=== PATIENT | male | born 1980 | race Caucasian/White ===

== ENCOUNTER 2016-03-20 09:20 | Emergency (ER) | payer OTHER ==
[~2016-03-20] VITALS: Ht 180.3 cm; Wt 77.0 kg
[~2016-03-20 09:20] MED LIST: CETITAB27 PO; OXYC20TA32 PO
[2016-03-20 09:25] VITALS: TEMP 36.6; Ht 180.3 cm; Wt 77.0 kg
[2016-03-20] MEDS ORDERED: KETOROLAC TROMETHAMINE 60 MG/2 ML VIAL IM STA (09:49)
[2016-03-20] MEDS ORDERED: HYDROmorphone HCL 4 MG/ML SYR IM STA (09:49)
[2016-03-20] MEDS ORDERED: ONDANSETRON 4MG OD TAB PO STA (09:49)
--- NOTE | 2016-03-20 09:54 | EMERGENCY ROOM VISIT NOTE ---
ED Visit Note First contact with patient: 09:30 CHIEF COMPLAINT: Migraine headache since early this morning HISTORY OF PRESENT ILLNESS: Patient is a 36-year-old white male with past medical history significant for migraine headaches, chronic neck, back pain and eye pain, who is known to the emergency department for frequent visits and on a treatment plan restricting him to 2 narcotic injections per month. He presents to the ED complaining of a migraine that started early this morning. There has been associated photophobia, phonophobia, nausea without vomiting. The patient denies fever or chills recently, and there is no weakness or numbness of the extremities. There is no difficulty with balance, coordination, speech or vision. No trauma to the head and no neck pain. The pain is severe, constant, and it is slowly increasing in severity. The patient rates the pain as severe and 9/10. The patient took Opana this morning without relief of his headache. His pain management provider in [place] has recently changed his medications. He has been on oxycodone regularly for many years. He states that they are weaning down on this, and he recently started Opana BID, with the intention to completely discontinue the oxycodone and switched to something different for breakthrough pain. He has been appointment in the beginning of April for follow-up. He [place] [facility] [place] He believes he has an appointment in the end of April. REVIEW OF SYSTEMS: Review of systems as per HPI. All other systems reviewed were negative. 10 systems reviewed. PMH:Electronic medical records are reviewed and summarized as above/below. See Problem List. SOCIAL HISTORY: The patient does not smoke or drink alcohol. He lives with his and daughter. PHYSICAL EXAM: Vital Signs: Reviewed Nurse's notes, vital signs stable. Vital Signs: Reviewed Nurse's notes. General Appearance: Patient is uncomfortable appearing 36-year-old white male who is awake and alert and laying on the gurney in a darkened room. His family is at the bedside. Eyes: Pupils equal round reactive to light extraocular muscles are intact, no proptosis, mild photophobia ENT: Oropharynx is clear, mucous membranes are moist, tympanic membranes are clear bilaterally, no sinus or dental tenderness Neck: Supple, no cervical lymphadenopathy, no meningismus Heart: Regular rate and rhythm, S1 and S2 Lungs: Clear to auscultation bilaterally, no wheezes Rales or rhonchi, no increased work of breathing Abdomen: Soft nontender nondistended. Normal active bowel sounds. No rebound. No guarding. Back: No midline tenderness to palpation. : No CVA tenderness to palpation. Skin: Warm, no diaphoresis, no rashes. Extremities: No cyanosis, clubbing, or edema Neurologic: Patient is awake alert, and oriented x 3. Cranial nerves 2-12 are grossly intact. Motor 5 out of 5 strength bilateral upper extremities and lower extremities. No gross sensory deficits. Reflexes are 2+ throughout. EMERGENCY DEPARTMENT COURSE: Patient was seen and evaluated as above. The patient is well known to this emergency department. He presents today with a migraine that is similar to previous. He is on a 2 shot per month treatment plan. This is his first visit for the month. The patient was given Dilaudid 3 mg IM, Toradol 60 mg IM Zofran 4 mg ODT with relief of their pain. These are typical doses for the patient. He requested to be discharged immediately. The differential diagnosis includes acute intracranial bleed, meningitis, encephalitis, mass or mass effect, sinusitis, infection, tumor, headache, temporal arteritis and carbon monoxide exposure, and migraine. The patient was discharged home in stable condition with his driving. He was advised to follow closely with his neurologist and pain management physician for further care and management of his symptoms. Problem List Medical Problems: (1) Abdominal pain Status: Resolved (2) Chronic sinusitis Status: Resolved (3) Headache Status: Resolved (4) Headache Status: Resolved (5) Headache Status: Resolved (6) IDIOPATHIC SCOLIOSIS Status: Chronic (7) Kidney stone Status: Resolved (8) Migraine Status: Resolved (9) Migraine Status: Resolved (10) Migraine Status: Resolved (11) Migraine Status: Resolved (12) Migraine Status: Resolved (13) Migraine Status: Resolved (14) Migraine headache Status: Resolved (15) Migraine headache Status: Resolved (16) Migraine headache Status: Resolved (17) Migraine headache Status: Resolved (18) MIGRAINE UNSPECIFIED W/O INTRACT MGRN W/O STATUS MIGRAINOSUS Status: Chronic (19) Shortness of breath Status: Resolved (20) TOBACCO USE DISORDER Status: Chronic Current/Historical Medications Scheduled Multiple Vitamins W/ Minerals (Centrum), 1 TAB PO DAILY Oxymorphone Hcl (Opana Er (Crush Resistant), 1 TAB PO BID Scheduled PRN Cetirizine/Pseudoephedrine (Zyrtec-D Er 5MG/120MG), 1 TAB PO Q12H PRN for Allergies Oxycodone Hcl (Oxycodone Hcl), 1 TAB PO QID PRN for Pain Allergies Coded Allergies: Meperidine (Verified Adverse Reaction, Unknown, ANXIETY, 03/20/16) Metoclopramide (Verified Adverse Reaction, Unknown, ANXIETY, 03/20/16) Vital Signs Date Time Temp Pulse Resp B/P Pulse Ox O2 Delivery O2 Flow Rate FiO2 03/20/16 10:25 59 15 102/54 98 03/20/16 10:21 71 16 111/69 99 Room Air 03/20/16 09:25 36.6 51 18 129/74 98 Room Air Medications Administered Medications (Trade) Dose Ordered Sig/Babs Route Start Time Stop Time Status Last Admin Dose Admin Hydromorphone HCl (Dilaudid Inj) 3 mg NOW STAT IM 03/20/16 09:49 03/20/16 09:50 DC 03/20/16 10:11 3 MG Ketorolac Tromethamine (Toradol Inj) 60 mg NOW STAT IM 03/20/16 09:49 03/20/16 09:50 DC 03/20/16 10:10 60 MG Ondansetron HCl (Zofran Odt) 4 mg NOW STAT PO 03/20/16 09:49 03/20/16 09:50 DC 03/20/16 10:10 4 MG Departure Information Impression Primary Impression: Headache Referrals Santa Reese M.D. (PCP) Patient Instructions My [facility] Additional Instructions DO NOT drive, drink alcohol, operate machinery, or perform dangerous activities today. You were given medications in the ER that can affect your ability to safely function or operate a vehicle. Rest today in a quiet, peaceful, dark environment and get a full 8-10 hrs of sleep tonight. Avoid loud noises, smoke/smoking, alcohol, bright lights, stress, or physical exertion today to minimize the chance the headache may return. Continue current medications. Ibuprofen(Motrin, Advil) may be used for fever or pain. Use 600mg every six hours as needed. Take with food. Avoid using more than 2400mg in a 24 hour period. Do not use 2400mg per day for more than three consecutive days without physician direction. Prolonged inappropriate use can lead to stomach upset or ulcers. (AND/OR) Acetaminophen(Tylenol) may be used for fever or pain. Use 1000mg every six hours as needed. Avoid using more than 3000mg in a 24 hour period. Return to the ER for passing out, worsening headache, vision problems, neck stiffness/pain, fevers, vomiting, worsening of your condition, or as needed. Follow up with your primary physician in 2-3 days for a recheck of your current condition. Follow-up with your pain management physician and neurologist as scheduled.
[2016-03-20] MEDS ORDERED: OXYM1TAB24 PO (10:01)
[2016-03-20] MEDS ORDERED: OXY/15 PO (10:01)
--- NOTE | 2016-03-20 10:09 | EMERGENCY ROOM VISIT NOTE ---
ED Visit Note First contact with patient: 09:30 I have seen and examined this patient with Gin Lares and generally agree with the treatment plan as discussed. Problem List Medical Problems: (1) Abdominal pain Status: Resolved (2) Chronic sinusitis Status: Resolved (3) Headache Status: Resolved (4) Headache Status: Resolved (5) Headache Status: Resolved (6) IDIOPATHIC SCOLIOSIS Status: Chronic (7) Kidney stone Status: Resolved (8) Migraine Status: Resolved (9) Migraine Status: Resolved (10) Migraine Status: Resolved (11) Migraine Status: Resolved (12) Migraine Status: Resolved (13) Migraine Status: Resolved (14) Migraine headache Status: Resolved (15) Migraine headache Status: Resolved (16) Migraine headache Status: Resolved (17) Migraine headache Status: Resolved (18) MIGRAINE UNSPECIFIED W/O INTRACT MGRN W/O STATUS MIGRAINOSUS Status: Chronic (19) Shortness of breath Status: Resolved (20) TOBACCO USE DISORDER Status: Chronic Current/Historical Medications Scheduled Multiple Vitamins W/ Minerals (Centrum), 1 TAB PO DAILY Oxymorphone Hcl (Opana Er (Crush Resistant), 1 TAB PO BID Scheduled PRN Cetirizine/Pseudoephedrine (Zyrtec-D Er 5MG/120MG), 1 TAB PO Q12H PRN for Allergies Oxycodone Hcl (Oxycodone Hcl), 1 TAB PO QID PRN for Pain Allergies Coded Allergies: Meperidine (Verified Adverse Reaction, Unknown, ANXIETY, 03/20/16) Metoclopramide (Verified Adverse Reaction, Unknown, ANXIETY, 03/20/16) Vital Signs Date Time Temp Pulse Resp B/P Pulse Ox O2 Delivery O2 Flow Rate FiO2 03/20/16 09:25 36.6 51 18 129/74 98 Room Air Departure Information Impression Primary Impression: Headache Referrals Santa Reese M.D. (PCP) Patient Instructions My [facility] Additional Instructions DO NOT drive, drink alcohol, operate machinery, or perform dangerous activities today. You were given medications in the ER that can affect your ability to safely function or operate a vehicle. Rest today in a quiet, peaceful, dark environment and get a full 8-10 hrs of sleep tonight. Avoid loud noises, smoke/smoking, alcohol, bright lights, stress, or physical exertion today to minimize the chance the headache may return. Continue current medications. Ibuprofen(Motrin, Advil) may be used for fever or pain. Use 600mg every six hours as needed. Take with food. Avoid using more than 2400mg in a 24 hour period. Do not use 2400mg per day for more than three consecutive days without physician direction. Prolonged inappropriate use can lead to stomach upset or ulcers. (AND/OR) Acetaminophen(Tylenol) may be used for fever or pain. Use 1000mg every six hours as needed. Avoid using more than 3000mg in a 24 hour period. Return to the ER for passing out, worsening headache, vision problems, neck stiffness/pain, fevers, vomiting, worsening of your condition, or as needed. Follow up with your primary physician in 2-3 days for a recheck of your current condition. Follow-up with your pain management physician and neurologist as scheduled.
[2016-03-20 10:25] VITALS: BP 102/54; PULSE 59; O2SAT 98
== END 2016-03-20 10:26 | disposition home or self-care (01) ==
LOC: C.EDB 09:22
DX: R51 Headache (principal); M41.20 Other idiopathic scoliosis, site unspecified; Z72.0 Tobacco use

== ENCOUNTER 2016-03-21 08:59 | Emergency (ER) | payer OTHER ==
[~2016-03-21] VITALS: Ht 180.3 cm; Wt 82.1 kg
[~2016-03-21 08:59] MED LIST changes: +OXY/15 PO; -OXYC20TA32 PO; +OXYM1TAB24 PO
[2016-03-21 09:11] VITALS: TEMP 36.9; Ht 180.3 cm; Wt 82.1 kg
[2016-03-21] MEDS ORDERED: HYDROmorphone INJ 1 MG/ML SYR IM STA (09:18)
[2016-03-21] MEDS ORDERED: KETOROLAC TROMETHAMINE 60 MG/2 ML VIAL IM STA (09:18)
[2016-03-21] MEDS ORDERED: ONDANSETRON 4MG OD TAB PO ONE (09:30)
[2016-03-21 10:18] VITALS: BP 136/74; PULSE 58; O2SAT 98
--- NOTE | 2016-03-21 16:13 | EMERGENCY ROOM VISIT NOTE ---
History First contact with patient: 09:16 Chief Complaint: HEADACHE Stated Complaint: MIGRAINE History of Present Illness The patient is a 36 year old male who presents to the Emergency Room with complaints of a persistent migraine headache. The patient reports that he was here yesterday with a migraine, and did not really have any significant relief with his typical treatment regimen. The patient is currently under the management of Dr. Marie for his chronic migraines. The patient reports that they recently switched him to Opana twice daily. He also takes OxyIR 15 mg as needed for breakthrough. He reports that these medications are not helping. He reports that the migraine is similar to all prior migraines, and is not the worse headache of his life. He denies any recent head injury, fever, sinus congestion or risk of carbon monoxide exposure. He rates his pain a 9 out of 10. Review of Systems 10 system review was performed and was negative except for pertinent positives and negatives as indicated in history of present illness Past Medical/Surgical History Medical Problems: (1) Abdominal pain (2) Chronic sinusitis (3) Headache (4) Headache (5) Headache (6) IDIOPATHIC SCOLIOSIS (7) Kidney stone (8) Migraine (9) Migraine (10) Migraine (11) Migraine (12) Migraine (13) Migraine (14) Migraine headache (15) Migraine headache (16) Migraine headache (17) Migraine headache (18) MIGRAINE UNSPECIFIED W/O INTRACT MGRN W/O STATUS MIGRAINOSUS (19) Shortness of breath (20) TOBACCO USE DISORDER Family History FHx: headache Kidney stones Social History Smoking Status: Never Smoker Alcohol Use: none Drug Use: none Marital Status: Housing Status: lives with family Occupation Status: unemployed Current/Historical Medications Scheduled Multiple Vitamins W/ Minerals (Centrum), 1 TAB PO DAILY Oxymorphone Hcl (Opana Er (Crush Resistant), 1 TAB PO BID Scheduled PRN Cetirizine/Pseudoephedrine (Zyrtec-D Er 5MG/120MG), 1 TAB PO Q12H PRN for Allergies Oxycodone Hcl (Oxycodone Hcl), 1 TAB PO QID PRN for Pain Allergies Coded Allergies: Meperidine (Verified Adverse Reaction, Unknown, ANXIETY, 03/20/16) Metoclopramide (Verified Adverse Reaction, Unknown, ANXIETY, 03/20/16) Physical Exam Vital Signs Date Time Temp Pulse Resp B/P Pulse Ox O2 Delivery O2 Flow Rate FiO2 03/21/16 10:18 58 16 136/74 98 03/21/16 09:11 36.9 86 16 119/74 99 Room Air Pain Rating (0-10): 0 Physical Exam CONSTITUTIONAL: Healthy and well nourished. Alert and oriented X 3 with positive affect. HEENT: Normocephalic, atraumatic. Pupils equal, round and reactive. Patient is photophobic, precluding funduscopic exam. NECK: Full active range of motion without discomfort. No nuchal rigidity. LYMPHATICS: No cervical chain adenopathy. RESPIRATORY: Clear to auscultation bilaterally with no wheezing, crackles, rhonchi or stridor. CARDIOVASCULAR: Regular rate and rhythm with no murmurs, rubs or gallops. MUSCULOSKELETAL: Full range of motion of all joints without discomfort. INTEGUMENTARY: No rash or other significant dermatologic conditions noted. NEUROLOGIC: Cranial nerves II-XII grossly intact. No focal neurologic deficits noted. No ataxia with ambulation. Negative pronator drift. Medical Decision & Procedures Medications Administered Medications (Trade) Dose Ordered Sig/Babs Route Start Time Stop Time Status Last Admin Dose Admin Hydromorphone HCl (Dilaudid Inj) 3 mg ONE STAT IM 03/21/16 09:18 03/21/16 09:19 DC 03/21/16 09:41 3 MG Ketorolac Tromethamine (Toradol Inj) 60 mg NOW STAT IM 03/21/16 09:18 03/21/16 09:19 DC 03/21/16 09:43 60 MG Ondansetron HCl (Zofran Odt) 4 mg ONE ONCE PO 03/21/16 09:30 03/21/16 09:31 DC 03/21/16 09:42 4 MG ED Course Patient history and physical exam were performed. Nurse's notes were reviewed. Vital signs were reviewed and were normal. The patient is well-known to the emergency department with history of chronic migraines. He is currently on a treatment plan, and received IM Dilaudid, Toradol and Zofran ODT per his treatment plan. The patient was instructed to follow-up with Dr. Marie for further migraine management. He may certainly return to the emergency department for further nonnarcotic pain management. The patient was happy with plan of care, voice understanding of all discharge instructions, and rated his pain a 7 out of 10 at the time of discharge. Medical Decision The patient presents to the emergency department with complaint of a migraine headache that is similar to all prior migrainous events. It is not the worse headache of his life. At this point, I do not feel that further laboratory or imaging studies are warranted. I do not suspect brain abscess, intracranial bleed, meningitis, TIA/CVA, thromboembolic event or carbon monoxide poisoning. Impression Primary Impression: Migraine Departure Information Dispostion Home / Self-Care Condition GOOD Forms HOME CARE DOCUMENTATION FORM, IMPORTANT VISIT INFORMATION Patient Instructions My [facility] Additional Instructions Rest and remain well-hydrated. Follow-up with Dr. Marie for further migraine management. Return to the emergency department as needed for further migraine management.
== END 2016-03-21 10:19 | disposition home or self-care (01) ==
LOC: C.EDB 09:00 → C.EDA 10:19
DX: G43.909 Migraine, unspecified, not intractable, without status migrainosus (principal); M41.20 Other idiopathic scoliosis, site unspecified; Z87.442 Personal history of urinary calculi; Z72.0 Tobacco use; Z79.899 Other long term (current) drug therapy

== ENCOUNTER 2016-03-26 11:57 | Emergency (ER) | payer OTHER ==
[~2016-03-26] VITALS: Ht 180.3 cm; Wt 79.5 kg
[2016-03-26 12:09] VITALS: TEMP 36.4; Ht 180.3 cm; Wt 79.5 kg
[2016-03-26] MEDS ORDERED: SODIUM CHLORIDE 0.9% 1000ML 1,000 ML IV STA (12:35)
[2016-03-26] MEDS ORDERED: KETOROLAC TROMETHAMINE 30 MG/ML VIAL IV STA (12:35)
[2016-03-26] MEDS ORDERED: ONDANSETRON INJ 2 MG/ML 2 ML VIAL IV STA (12:35)
[2016-03-26 12:43] LABS: BASO % 0.3 %; BASO ABS # 0.02 K/uL (0-0.2); COMPLETE YES; EOS % 1.3 %; HEMATOCRIT 35.1 % (42-52); IG% 0.2 %; LYMPH % 46.3 %; LYMPH ABS # 2.83 K/uL (1.2-3.4); MEAN CELL VOLUME 88.2 fL (80-100); MEAN CORPUSCULAR HEMOGLOBIN 31.4 pg (25-34); MEAN CORPUSCULAR HGB CONC 35.6 g/dl (32-36); MEAN PLATELET VOLUME 10.8 fL (7.4-10.4); MONO % 7.2 %; NEUT % 44.7 %; PLATELET COUNT 214 K/uL (130-400); RED BLOOD COUNT 3.98 M/uL (4.7-6.1); WHITE BLOOD COUNT 6.11 K/uL (4.8-10.8)
[2016-03-26 12:56] LABS: BUN/CREATININE RATIO 16.1 (10-20); CALCIUM 9.3 mg/dl (8.5-10.1)
[2016-03-26 13:10] LABS: URINE APPEARANCE CLEAR (CLEAR); URINE BILIRUBIN NEG (NEG); URINE COLOR YELLOW; URINE NITRITE NEG (NEG); URINE SPECIFIC GRAVITY 1.021 (1.000-1.030); UROBILINOGEN NEG (NEG)
[2016-03-26 13:11] LABS: MANUAL MICROSCOPIC REQUIRED? NO; REVIEW REQ? NO
--- NOTE | 2016-03-26 13:29 | DIAGNOSTIC IMAGING REPORT ---
CT SCAN OF THE ABDOMEN AND PELVIS WITHOUT CONTRAST CLINICAL HISTORY: Right flank pain COMPARISON STUDY: 10/11/2009 TECHNIQUE: CT scan of the abdomen and pelvis was performed from the lung bases to the proximal femurs. Images are reviewed in the axial, sagittal, and coronal planes. IV contrast was not administered for this examination. CT DOSE: 446.52 mGy.cm FINDINGS: Lower chest: The heart is normal in size and configuration, without pericardial effusion. The lung bases and pleural spaces are clear. Liver: The unenhanced liver is normal in size, contour, and attenuation. There is no intrahepatic biliary ductal dilatation. Gallbladder: Unremarkable. Spleen: Normal in size and attenuation. Pancreas: Unremarkable. Adrenal glands: Unremarkable. Kidneys: 2 left renal calculi are visualized, each of which measures approximately 3 mm. There are 2 punctate nonobstructing upper pole right renal calculi. There is right-sided hydronephrosis and right-sided nephrogram edema. There is a 3 mm calculus at the level of the right ureterovesical junction. Bowel: There are no transition zones indicate bowel obstruction. There is no acute diverticulitis. There is a low-lying cecum. There are no findings to indicate acute appendicitis. Peritoneum: There is no intraperitoneal free air or abdominal ascites. There is a fat-containing umbilical hernia. Vasculature: The abdominal aorta is normal in course and caliber. Adenopathy: None. Pelvic viscera: The bladder, and pelvic viscera are unremarkable. Skeletal structures: No destructive osseous lesions are seen. IMPRESSION: 1. Bilateral nephrolithiasis 2. 3 mm obstructing calculus at the level of the right ureterovesical junction. Electronically signed by: Troy Fraser M.D. 03/26/2016 1:27 PM Dictated Date/Time: 03/26/2016 1:22 PM
[2016-03-26] MEDS ORDERED: HYDROmorphone INJ 1 MG/ML SYR IV STA ×2 (13:36→14:50)
[2016-03-26] MEDS ORDERED: POTASSIUM CHLORIDE 10 MEQ TABCR PO STA (14:17)
[2016-03-26] MEDS ORDERED: TAMSULOSIN HCL 0.4 MG CAP PO ONE (14:45)
[2016-03-26] MEDS ORDERED: TAMS0.4C38 PO (14:46)
[2016-03-26] MEDS ORDERED: HYDROmorphone INJ 0.5 MG/0.5 ML SYR ONE (14:56)
[2016-03-26 15:03] VITALS: BP 123/71; PULSE 63; O2SAT 98
--- NOTE | 2016-03-26 18:58 | EMERGENCY ROOM VISIT NOTE ---
History Report prepared by Rejiibrose: Tami Felipe Under the Supervision of: Dr. Leandro Arceo M.D. First contact with patient: 12:24 Chief Complaint: FLANK PAIN Stated Complaint: FLANK PAIN History of Present Illness The patient is a 36 year old male who presents to the Emergency Room via ambulance with complaints of right flank pain that has been constant over the past 3 hours. The pain is sharp. He also complains of urinary retention and some blood in his urine. His urine was slightly pink this morning. He currently feels like he needs to have a bowel movement. He was given 10 mg Morphine, 4 mg Zofran, and 250 ml NSS en route. Early this morning, he took a friend's Suboxone. He is not prescribed Suboxone, but has taken a few of them over the past few days. The patient is chronically on Oxycodone for neck issues and a history of migraines and has been trying to wean himself on pain pills. He does not want to talk to his doctor about weaning off of the pain pills because he is afraid of the withdrawal. He has a history of kidney stones and states that his pain feels similar to when he had kidney stones. Denies fevers, vomiting, or other complaints. Source of History: patient Onset: 3 hours ago Position: other (right flank) Symptom Intensity: severe Quality: sharp Timing: constant Associated Symptoms: + urinary symptoms (retention, some blood), No fevers, No vomiting Review of Systems See HPI for pertinent positives & negatives. A total of 10 systems reviewed and were otherwise negative. Past Medical & Surgical Medical Problems: (1) Abdominal pain (2) Chronic sinusitis (3) Headache (4) Headache (5) Headache (6) IDIOPATHIC SCOLIOSIS (7) Kidney stone (8) Migraine (9) Migraine (10) Migraine (11) Migraine (12) Migraine (13) Migraine (14) Migraine headache (15) Migraine headache (16) Migraine headache (17) Migraine headache (18) MIGRAINE UNSPECIFIED W/O INTRACT MGRN W/O STATUS MIGRAINOSUS (19) Shortness of breath (20) TOBACCO USE DISORDER Family History FHx: headache Kidney stones Social History Smoking Status: Former Smoker Alcohol Use: none Drug Use: none Marital Status: Housing Status: lives with family Occupation Status: unemployed Current/Historical Medications Scheduled Multiple Vitamins W/ Minerals (Centrum), 1 TAB PO DAILY Oxymorphone Hcl (Opana Er (Crush Resistant), 1 TAB PO BID Tamsulosin Hcl (Flomax), 0.4 MG PO DAILY Scheduled PRN Cetirizine/Pseudoephedrine (Zyrtec-D Er 5MG/120MG), 1 TAB PO Q12H PRN for Allergies Oxycodone Hcl (Oxycodone Hcl), 1 TAB PO QID PRN for Pain Allergies Coded Allergies: Meperidine (Verified Adverse Reaction, Unknown, ANXIETY, 03/26/16) Metoclopramide (Verified Adverse Reaction, Unknown, ANXIETY, 03/26/16) Physical Exam Vital Signs Date Time Temp Pulse Resp B/P Pulse Ox O2 Delivery O2 Flow Rate FiO2 03/26/16 15:03 63 16 123/71 98 Room Air 03/26/16 13:30 59 18 110/64 96 Room Air 03/26/16 12:45 48 03/26/16 12:30 42 18 111/71 100 Room Air 03/26/16 12:09 36.4 56 18 130/95 100 Room Air Physical Exam Constitutional: Vital signs reviewed. Eyes: Pupils are equal round reactive to light. Conjunctiva are noninjected. ENT: Pharynx is clear without erythema or exudate. Mucous membranes are moist. Neck supple without meningeal signs. Respiratory: Clear to auscultation bilaterally. Breath sounds are equal bilaterally. Cardiovascular: Regular rate and rhythm. No rubs or gallops. GI: Soft, nondistended and nontender. Bowel sounds are present. Musculoskeletal: No peripheral edema. No lower extremity tenderness. No CVA tenderness. Integumentary: No cyanosis. Sweating. Neurological: The patient is awake and alert. No focal deficits. Psychiatric: Anxious affect. Medical Decision & Procedures ER Provider Diagnostic Interpretation: CT results as stated below per my review and radiologist interpretation. CT SCAN OF THE ABDOMEN AND PELVIS WITHOUT CONTRAST CLINICAL HISTORY: Right flank pain COMPARISON STUDY: 10/11/2009 TECHNIQUE: CT scan of the abdomen and pelvis was performed from the lung bases to the proximal femurs. Images are reviewed in the axial, sagittal, and coronal planes. IV contrast was not administered for this examination. CT DOSE: 446.52 mGy.cm FINDINGS: Lower chest: The heart is normal in size and configuration, without pericardial effusion. The lung bases and pleural spaces are clear. Liver: The unenhanced liver is normal in size, contour, and attenuation. There is no intrahepatic biliary ductal dilatation. Gallbladder: Unremarkable. Spleen: Normal in size and attenuation. Pancreas: Unremarkable. Adrenal glands: Unremarkable. Kidneys: 2 left renal calculi are visualized, each of which measures approximately 3 mm. There are 2 punctate nonobstructing upper pole right renal calculi. There is right-sided hydronephrosis and right-sided nephrogram edema. There is a 3 mm calculus at the level of the right ureterovesical junction. Bowel: There are no transition zones indicate bowel obstruction. There is no acute diverticulitis. There is a low-lying cecum. There are no findings to indicate acute appendicitis. Peritoneum: There is no intraperitoneal free air or abdominal ascites. There is a fat-containing umbilical hernia. Vasculature: The abdominal aorta is normal in course and caliber. Adenopathy: None. Pelvic viscera: The bladder, and pelvic viscera are unremarkable. Skeletal structures: No destructive osseous lesions are seen. IMPRESSION: 1. Bilateral nephrolithiasis 2. 3 mm obstructing calculus at the level of the right ureterovesical junction. Electronically signed by: Troy Fraser M.D. 03/26/2016 1:27 PM Dictated Date/Time: 03/26/2016 1:22 PM Laboratory Results 03/26/16 12:09 Red Blood Count 3.98, Mean Corpuscular Volume 88.2, Mean Corpuscular Hemoglobin 31.4, Mean Corpuscular Hemoglobin Concent 35.6, Mean Platelet Volume 10.8, Neutrophils (%) (Auto) 44.7, Lymphocytes (%) (Auto) 46.3, Monocytes (%) (Auto) 7.2, Eosinophils (%) (Auto) 1.3, Basophils (%) (Auto) 0.3, Neutrophils # (Auto) 2.73, Lymphocytes # (Auto) 2.83, Monocytes # (Auto) 0.44, Eosinophils # (Auto) 0.08, Basophils # (Auto) 0.02 03/26/16 12:09 Test 03/26/16 12:09 White Blood Count 6.11 K/uL (4.8-10.8) Red Blood Count 3.98 M/uL (4.7-6.1) Hemoglobin 12.5 g/dL (14.0-18.0) Hematocrit 35.1 % (42-52) Mean Corpuscular Volume 88.2 fL (80-100) Mean Corpuscular Hemoglobin 31.4 pg (25-34) Mean Corpuscular Hemoglobin Concent 35.6 g/dl (32-36) Platelet Count 214 K/uL (130-400) Mean Platelet Volume 10.8 fL (7.4-10.4) Neutrophils (%) (Auto) 44.7 % Lymphocytes (%) (Auto) 46.3 % Monocytes (%) (Auto) 7.2 % Eosinophils (%) (Auto) 1.3 % Basophils (%) (Auto) 0.3 % Neutrophils # (Auto) 2.73 K/uL (1.4-6.5) Lymphocytes # (Auto) 2.83 K/uL (1.2-3.4) Monocytes # (Auto) 0.44 K/uL (0.11-0.59) Eosinophils # (Auto) 0.08 K/uL (0-0.5) Basophils # (Auto) 0.02 K/uL (0-0.2) RDW Standard Deviation 40.3 fL (36.4-46.3) RDW Coefficient of Variation 12.5 % (11.5-14.5) Immature Granulocyte % (Auto) 0.2 % Immature Granulocyte # (Auto) 0.01 K/uL (0.00-0.02) Urine Color YELLOW Urine Appearance CLEAR (CLEAR) Urine pH 5.0 (4.5-7.5) Urine Specific [place] 1.021 (1.000-1.030) Urine Protein NEG (NEG) Urine Glucose (UA) NEG (NEG) Urine Ketones 1+ (NEG) Urine Occult Blood 3+ (NEG) Urine Nitrite NEG (NEG) Urine Bilirubin NEG (NEG) Urine Urobilinogen NEG (NEG) Urine Leukocyte Esterase NEG (NEG) Urine WBC (Auto) 1-5 /hpf (0-5) Urine RBC (Auto) 5-10 /hpf (0-4) Urine Hyaline Casts (Auto) 1-5 /lpf (0-5) Urine Epithelial Cells (Auto) 10-20 /lpf (0-5) Urine Bacteria (Auto) NEG (NEG) Anion Gap 13.0 mmol/L (3-11) Est Creatinine Clear Calc Drug Dose 107.7 ml/min Estimated GFR () 110.9 Estimated GFR (Non- 95.7 BUN/Creatinine Ratio 16.1 (10-20) Calcium Level 9.3 mg/dl (8.5-10.1) Total Bilirubin 0.4 mg/dl (0.2-1) Direct Bilirubin 0.1 mg/dl (0-0.2) Aspartate Amino Transf (AST/SGOT) 15 U/L (15-37) Alanine Aminotransferase (ALT/SGPT) 14 U/L (12-78) Alkaline Phosphatase 68 U/L (45-117) Total Protein 7.1 gm/dl (6.4-8.2) Albumin 4.6 gm/dl (3.4-5.0) Lipase 102 U/L (73-393) Laboratory results as reviewed by me. Medications Administered Medications (Trade) Dose Ordered Sig/Babs Route Start Time Stop Time Status Last Admin Dose Admin Ondansetron HCl (Zofran Inj) 4 mg NOW STAT IV 03/26/16 12:35 03/26/16 12:37 DC 03/26/16 12:50 4 MG Ketorolac Tromethamine 15 mg 15 mg NOW STAT IV 03/26/16 12:35 03/26/16 12:37 DC 03/26/16 12:50 15 MG Sodium Chloride (Nss 1000ml) 1,000 ml @ 999 mls/hr Q1H1M STAT IV 03/26/16 12:35 03/26/16 13:35 DC 03/26/16 12:50 999 MLS/HR Hydromorphone HCl (Dilaudid Inj) 1 mg NOW STAT IV 03/26/16 13:36 03/26/16 13:37 DC 03/26/16 13:43 1 MG Potassium Chloride (Klor-Con M10) 40 meq NOW STAT PO 03/26/16 14:17 03/26/16 14:18 DC 03/26/16 14:24 40 MEQ Tamsulosin HCl (Flomax Cap) 0.4 mg NOW ONCE PO 03/26/16 14:45 03/26/16 14:46 DC 03/26/16 14:55 0.4 MG Hydromorphone HCl (Dilaudid Inj) 0.5 mg STK-MED ONCE .ROUTE 03/26/16 14:56 03/26/16 14:58 DC 03/26/16 15:00 0.5 MG ED Course 1228: The patient was evaluated in room C9. A complete history and physical exam was performed. 1235: Ordered NSS 1000 ml @ 999 mls/hr IV, Toradol Inj 15 mg IV, Zofran Inj 4 mg IV. 1335: I reassessed the patient. He feels like the pain is moving now and feels a little better. Ordered Dilaudid Inj 1 mg IV. 1402: I reassessed the patient and talked to him about results. He was feeling better. 1417: Ordered Potassium Chloride 40 meq PO. 1435: I reassessed the patient. He was resting comfortably. He will follow up with his doctor. He said that he will stop taking Suboxone and will ask his doctor about a narcotic regimen. The patient will be discharged home. 1445: Ordered Flomax Cap 0.4 mg PO. 1450: The patient recommended something before he goes for pain. Ordered Dilaudid Inj 0.5 mg IV. Medical Decision This is a 36-year-old male who presents with right flank pain. Differential diagnosis includes renal colic, hydronephrosis, UTI, pyelonephritis, strain chronic withdrawal. I did perform a limited focused review of portions of the patient's old chart on the electronic medical record. The patient comes here frequently for migraines, most recently March 21. I did evaluate the patient as noted above. I did treat the patient with IV Toradol and normal saline IV. I did order and personally review the patient's UA as described above. I did order and review the patient's blood work as noted in the electronic medical record. He does have hypokalemia. He was given oral potassium. I did order a CT of the abdomen and pelvis. I did review the images myself as well as the radiology report as described above. He does have intrarenal calculi as well as a right UVJ stone measuring 3 mm. I did reassess the patient. He is still having pain. He was given Dilaudid 1 mg IV. On reassessment he is feeling better. I did discuss the test results with him. He is feeling better. I did treat him with Flomax. He was told to stop taking Suboxone unless it was prescribed him. He will follow up closely with his doctor for help with weaning him off of narcotics. In the meantime he will take his narcotic pain medicine at home for his renal colic. He did request some more pain medicine before he left as he was having some slight increase in pain. He was given Dilaudid 0.5 mg IV. He was discharged in good condition. He is given a prescription for Flomax. He is given a urine strainer and told to stop using the Flomax once he passes a stone. Impression Primary Impression: Renal colic on right side Additional Impression: Hypokalemia Scribe Attestation The scribe's documentation has been prepared under my direct and personally reviewed by me in its entirety. I confirm that the note above accurately reflects all work, treatment, procedures, and medical decision making performed by me. Departure Information Dispostion Home / Self-Care Prescriptions Tamsulosin Hcl (FLOMAX) 0.4 Mg Cap 0.4 MG PO DAILY for until you pass stone, #7 CAP Prov: Leandro Arceo M.D. 03/26/16 Referrals Santa Reese M.D. (PCP) Patient Instructions Hypokalemia Dc, Kidney Stones - [facility], My [facility] Additional Instructions You have been examined and treated today on an emergency basis only. This is not a substitute for, or an effort to provide, complete comprehensive medical care. It is impossible to recognize and treat all injuries or illnesses in a single emergency department visit. It is therefore important that you follow up closely with your physician. Call as soon as possible for an appointment. Return for worsening symptoms or if you develop fever, vomiting, or any other concerning symptoms. Stop the Flomax once you pass your stone. Problem Qualifiers
== END 2016-03-26 15:07 | disposition home or self-care (01) ==
LOC: EDBD 11:57 → C.EDC 11:58
DX: N20.2 Calculus of kidney with calculus of ureter (principal); N13.30 Unspecified hydronephrosis; E87.6 Hypokalemia; F17.200 Nicotine dependence, unspecified, uncomplicated; Z87.442 Personal history of urinary calculi; M41.20 Other idiopathic scoliosis, site unspecified; Z87.891 Personal history of nicotine dependence; Z79.899 Other long term (current) drug therapy; Z88.8 Allergy status to other drugs, medicaments and biological substances; Z84.1 Family history of disorders of kidney and ureter

== ENCOUNTER 2016-04-20 15:07 | Emergency (ER) | payer OTHER ==
[~2016-04-20] VITALS: Ht 180.3 cm; Wt 79.0 kg
[2016-04-20 15:18] VITALS: Ht 180.3 cm; Wt 79.0 kg
[2016-04-20] MEDS ORDERED: HYDROmorphone INJ 1 MG/ML SYR IM STA (15:39)
[2016-04-20] MEDS ORDERED: KETOROLAC TROMETHAMINE 60 MG/2 ML VIAL IM STA (15:39)
[2016-04-20] MEDS ORDERED: ONDANSETRON 4MG OD TAB PO STA (15:39)
--- NOTE | 2016-04-20 15:43 | EMERGENCY ROOM VISIT NOTE ---
ED Visit Note First contact with patient: 15:34 CHIEF COMPLAINT: Migraine and neck pain HISTORY OF PRESENT ILLNESS: This 36-year-old male patient presented to the emergency department via private vehicle coming by female with a gradual onset of a severe generalized headache that started this morning when he woke up around 8 AM. The patient states the migraine is similar to their typical migraines. There has been associated photophobia, phonophobia, nausea but no vomiting. The patient denies fever or chills recently, and there is no weakness or numbness of the extremities. There is no difficulty with speech or vision. No trauma to the head and no neck pain. The pain is severe, constant, and it is slowly increasing in severity. The patient rates the pain as 9/10. The patient has taken Opana without relief. This is not the worst headache of the life and is similar to previous migraines. Previous imaging studies of the brain have been normal. REVIEW OF SYSTEMS: A review of systems was performed with positives and pertinent negatives listed in the history of present illness. All other systems were reviewed and are negative. ALLERGIES: As noted below MEDICATIONS: As noted below PMH: As noted below SOCIAL HISTORY: Patient lives at home with family. PHYSICAL EXAM: Vital Signs: Reviewed Nurse's notes, vital signs stable. GENERAL : 36-year-old male, who appears in pain, but non toxic in appearance and in no acute distress. MENTAL STATUS: Alert, oriented, and coherent. HEENT: Normocephalic. PERRLA. EOMI. Nares patent without nuchal rigidity. Tympanic membranes pearly rodriguez without erythema or effusion bilaterally. Mucous membranes moist. NECK: Supple, no nuchal rigidity, nontender, no lymphadenopathy. HEART: Regular rhythm and normal rate without murmurs, ectopy, gallops, or rubs. LUNGS: Clear to auscultation bilaterally without wheezes, rales or rhonchi. No accessory muscle use. No retractions. SKIN: Normal. NEUROLOGICAL: Pupils are round, equal and react to light.The patient moves all extremities well and the gait is normal. EMERGENCY DEPARTMENT COURSE: I examined the patient. The patient is on a 2 narcotic injection per month treatment plan for their migraines. The patient was given 3 mg of Dilaudid IM, 60 mg of Toradol IM, and 4 mg of Zofran ODT per their usual protocol. The differential diagnosis includes acute intracranial bleed, meningitis, encephalitis, mass or mass effect, sinusitis, infection, tumor, headache, temporal arteritis and carbon monoxide exposure, and migraine. The patient was discharged home in stable condition with female driving. In the evaluation and treatment of this patient, the following differential diagnoses were considered: Migraine Headache, Intracranial Hemorrhage, Subdural Hematoma, Subarachnoid Hemorrhage, Cerebral Aneurysm, Temporal/Giant Cell Arteritis, Tension Headache, Meningitis, Encephalitis, or Hydrocephalus. Problem List Medical Problems: (1) Abdominal pain Status: Resolved (2) Chronic sinusitis Status: Resolved (3) Headache Status: Resolved (4) Headache Status: Resolved (5) Headache Status: Resolved (6) IDIOPATHIC SCOLIOSIS Status: Chronic (7) Kidney stone Status: Resolved (8) Migraine Status: Resolved (9) Migraine Status: Resolved (10) Migraine Status: Resolved (11) Migraine Status: Resolved (12) Migraine Status: Resolved (13) Migraine Status: Resolved (14) Migraine headache Status: Resolved (15) Migraine headache Status: Resolved (16) Migraine headache Status: Resolved (17) Migraine headache Status: Resolved (18) MIGRAINE UNSPECIFIED W/O INTRACT MGRN W/O STATUS MIGRAINOSUS Status: Chronic (19) Shortness of breath Status: Resolved (20) TOBACCO USE DISORDER Status: Chronic Current/Historical Medications Scheduled Multiple Vitamins W/ Minerals (Centrum), 1 TAB PO DAILY Oxymorphone Hcl (Opana Er (Crush Resistant), 1 TAB PO BID Allergies Coded Allergies: Meperidine (Verified Adverse Reaction, Unknown, ANXIETY, 04/20/16) Metoclopramide (Verified Adverse Reaction, Unknown, ANXIETY, 04/20/16) Vital Signs Date Time Temp Pulse Resp B/P Pulse Ox O2 Delivery O2 Flow Rate FiO2 04/20/16 16:14 37.4 78 16 118/71 95 04/20/16 16:12 78 16 118/71 95 Room Air 04/20/16 15:18 37.4 80 16 120/77 95 Room Air Medications Administered Medications (Trade) Dose Ordered Sig/Babs Route Start Time Stop Time Status Last Admin Dose Admin Hydromorphone HCl (Dilaudid Inj) 3 mg NOW STAT IM 04/20/16 15:39 04/20/16 15:40 DC 04/20/16 15:59 3 MG Ketorolac Tromethamine (Toradol Inj) 60 mg NOW STAT IM 04/20/16 15:39 04/20/16 15:40 DC 04/20/16 15:54 60 MG Ondansetron HCl (Zofran Odt) 4 mg NOW STAT PO 04/20/16 15:39 04/20/16 15:40 DC 04/20/16 15:53 4 MG Departure Information Impression Primary Impression: Headache Dispostion Home / Self-Care Condition GOOD Referrals Santa Reese M.D. (PCP) Patient Instructions My [facility] Additional Instructions You have been treated in the Emergency Department for a Headache. You have received pain medicine in the emergency department which impairs your ability to operate a vehicle. It is illegal for you to drive after receiving these medicines. For pain control, you can use the following [id number] medicines (if >12 yo): - Regular strength (325mg/tab) Tylenol (acetaminophen) 2 tabs every 4-6 hours as needed. Do not exceed 12 tablets in a 24 hour period. Avoid taking more than 4 grams (4000 mg) of Tylenol per day. This includes any other sources of acetaminophen you may take on a regular basis. - Regular strength (200 mg/tab) Advil (ibuprofen) 1-2 tabs every 4-6 hours as needed. Do not exceed a dose of 3200 mg per day. You should relax in a quiet, dark place for the rest of the day. Avoid any possible triggers including: cigarette smoke, caffeine, nicotine, chocolate, wine, beer, loud noises or music, or bright lights. You should schedule a follow-up appointment in 2-3 days with your Primary Care Provider or established Neurologist for further evaluation and treatment of your Headache. Return to the Emergency Department if your current symptoms worsen despite treatment course outlined above, or if you develop any of the following symptoms : intractable pain despite aforementioned treatment course, visual disturbances , loss of vision, unilateral weakness or facial drooping, slurring of speech, loss of coordination, or loss of consciousness. Please return to emergency department with any new/concerning symptoms. Problem Qualifiers Primary Impression: Headache Headache type: unspecified Headache chronicity pattern: chronic headache Intractability: not intractable Qualified Codes: R51 - Headache
[2016-04-20 16:14] VITALS: BP 118/71; PULSE 78; TEMP 37.4; O2SAT 95
== END 2016-04-20 16:15 | disposition home or self-care (01) ==
LOC: C.EDB 15:08 → C.EDD 16:15
DX: R51 Headache (principal)

== ENCOUNTER 2016-04-27 09:00 | Emergency (ER) | payer OTHER ==
[~2016-04-27] VITALS: Ht 180.3 cm; Wt 80.1 kg
[~2016-04-27 09:00] MED LIST changes: -CETITAB27 PO; -OXY/15 PO
[2016-04-27 09:13] VITALS: TEMP 37.4; Ht 180.3 cm; Wt 80.1 kg
[2016-04-27] MEDS ORDERED: HYDROmorphone INJ 2 MG/ML SYR/VIAL IM STA (09:55)
[2016-04-27] MEDS ORDERED: KETOROLAC TROMETHAMINE 60 MG/2 ML VIAL IM STA (09:55)
[2016-04-27] MEDS ORDERED: ONDANSETRON 4MG OD TAB PO STA (09:55)
--- NOTE | 2016-04-27 10:04 | EMERGENCY ROOM VISIT NOTE ---
History Report prepared by Raquel: Alan Ny Under the Supervision of: Dr. Cam Kimball M.D. First contact with patient: 09:48 Chief Complaint: HEADACHE Stated Complaint: MIGRAIN & NECK PAIN History of Present Illness The patient is a 36 year old male who presents to the Emergency Room with complaints of a constant headache starting 1030 yesterday. The patient states that his headache is similar to his normal headaches. The patient denies hitting his head recently. He states that the pain is on the left side of his head, and he is having some neck pain, and he states that he is nauseous. The patient denies any fever or vomiting. He also states that he can move his legs and arms fine. He states that he cannot sleep or eat, and the light hurts his eyes. He states that he took some medications for this around 0300 this morning. Source of History: patient Onset: 1030 Position: head Quality: ache Timing: constant Modifying Factors (Worsening): other (light) Associated Symptoms: + nausea, + neck pain, No fevers, No vomiting Review of Systems See HPI for pertinent positives & negatives. A total of 10 systems reviewed and were otherwise negative. Past Medical & Surgical Medical Problems: (1) Abdominal pain (2) Chronic sinusitis (3) Headache (4) Headache (5) Headache (6) IDIOPATHIC SCOLIOSIS (7) Kidney stone (8) Migraine (9) Migraine (10) Migraine (11) Migraine (12) Migraine (13) Migraine (14) Migraine headache (15) Migraine headache (16) Migraine headache (17) Migraine headache (18) MIGRAINE UNSPECIFIED W/O INTRACT MGRN W/O STATUS MIGRAINOSUS (19) Shortness of breath (20) TOBACCO USE DISORDER Family History FHx: headache Kidney stones Social History Smoking Status: Never Smoker Alcohol Use: none Drug Use: none Marital Status: Housing Status: lives with family Occupation Status: unemployed Current/Historical Medications Scheduled Multiple Vitamins W/ Minerals (Centrum), 1 TAB PO DAILY Oxymorphone Hcl (Opana Er (Crush Resistant), 1 TAB PO BID Scheduled PRN Hydrocodon/Acetaminophen 5MG/300MG (Vicodin (5MG/300MG)), 1 TAB PO Q4H PRN for Pain Allergies Coded Allergies: Meperidine (Verified Adverse Reaction, Unknown, ANXIETY, 04/20/16) Metoclopramide (Verified Adverse Reaction, Unknown, ANXIETY, 04/20/16) Physical Exam Vital Signs Date Time Temp Pulse Resp B/P Pulse Ox O2 Delivery O2 Flow Rate FiO2 04/27/16 10:20 59 14 127/88 99 04/27/16 09:13 37.4 87 18 122/78 95 Room Air Physical Exam GENERAL: Patient is well appearing and in mild distress. HEAD: No acute trauma, normocephalic atraumatic ENT: Mucous membranes moist, no nasal congestion. EYES: Equal/Reactive Bilaterally, No scleral icterus, Normal ROM NECK: No nuchal rigidity, no meningismus, trachea is midline, full ROM LUNGS: No dyspnea. Clear to auscultation and equal bilaterally. No wheeze, no rhonchi. HEART: Regular rate and rhythm. No murmurs, rubs, gallops appreciated. ABDOMEN: Soft, nontender, bowel sounds positive, no masses appreciated, no peritonitis. BACK: No midline tenderness, no CVA tenderness EXTREMITIES: Normal motion all extremities, no cyanosis, no edema. NEUROLOGIC: Awake, Alert, Oriented, no acute motor or sensory deficits, no focal weakness, cranial nerves grossly intact. SKIN: No rash, no jaundice, no diaphoresis. Medical Decision & Procedures Medications Administered Medications (Trade) Dose Ordered Sig/Babs Route Start Time Stop Time Status Last Admin Dose Admin Hydromorphone HCl (Dilaudid Inj) 3 mg NOW STAT IM 04/27/16 09:55 04/27/16 09:57 DC 04/27/16 10:07 3 MG Ketorolac Tromethamine (Toradol Inj) 60 mg NOW STAT IM 04/27/16 09:55 04/27/16 09:57 DC 04/27/16 10:07 60 MG Ondansetron HCl (Zofran Odt) 4 mg NOW STAT PO 04/27/16 09:55 04/27/16 09:57 DC 04/27/16 10:08 4 MG ED Course 0948: The patient was evaluated in room A11. A complete history and physical exam was performed. 0955: Zofran Odt 4mg PO, Toradol Inj 60mg IM, Dilaudid Inj 3mg IM 1010: Reevaluated the patient. Discussed results and discharge instructions: He verbalized understanding and agreement. The patient is ready for discharge. Medical Decision Differential: Headache, Migraine, Cluster Headache, Seizure, Meningitis, Sinusitis, CO exposure, ICH/SAH, Infectious, Tumor, Sinus Thrombosis, Arterial Dissection, amongst other pathologies entertained. 36 yr old male arrives with headache left sided radiating to right which he states is very much similar to his previous headaches/migraines which he returns to ED regularly for. Tolerates large doses of Dilaudid in past which worked well for migraine control. Follow up with primary provider and neurologist, return to ED if worsening symptoms or other concern. Stable and without evidence of meningitis, ich, dissection. Stable and feeling well at discharge. Impression Primary Impression: Headache Scribe Attestation The scribe's documentation has been prepared under my direction and personally reviewed by me in its entirety. I confirm that the note above accurately reflects all work, treatment, procedures, and medical decision making performed by me. Departure Information Dispostion Home / Self-Care Referrals Santa Reese M.D. (PCP) Forms HOME CARE DOCUMENTATION FORM, IMPORTANT VISIT INFORMATION Patient Instructions ED Headache Migraine, My [facility] Additional Instructions You have received a narcotic pain medication. These medications may cause drowsiness and should not be used with other sedative medications. Do not drive , drink alcohol, perform dangerous activities, nor make important decisions after taking these medications. ferry terminal agent use or inappropriate use may lead to addiction. Problem Qualifiers Primary Impression: Headache Headache type: unspecified Headache chronicity pattern: acute headache Intractability: not intractable Qualified Codes: R51 - Headache
[2016-04-27] MEDS ORDERED: HYDR-3419 PO (10:05)
[2016-04-27 10:20] VITALS: BP 127/88; PULSE 59; O2SAT 99
== END 2016-04-27 10:22 | disposition home or self-care (01) ==
LOC: C.EDB 09:02 → C.EDA 10:22
DX: R51 Headache (principal); M41.20 Other idiopathic scoliosis, site unspecified; Z87.442 Personal history of urinary calculi; Z87.891 Personal history of nicotine dependence

== ENCOUNTER 2016-05-02 20:06 | Emergency (ER) | payer OTHER ==
[~2016-05-02] VITALS: Ht 180.3 cm; Wt 81.6 kg
[~2016-05-02 20:06] MED LIST changes: +HYDR-3419 PO
[2016-05-02 20:08] VITALS: TEMP 36.6; Ht 180.3 cm; Wt 81.6 kg
[2016-05-02] MEDS ORDERED: KETOROLAC TROMETHAMINE 60 MG/2 ML VIAL IM STA (21:39)
[2016-05-02] MEDS ORDERED: HYDROmorphone INJ 1 MG/ML SYR IM STA (21:39)
[2016-05-02] MEDS ORDERED: ONDANSETRON 4MG OD TAB PO STA (21:39)
--- NOTE | 2016-05-02 21:44 | EMERGENCY ROOM VISIT NOTE ---
ED Visit Note First contact with patient: 21:33 CHIEF COMPLAINT: Migraine headache HISTORY OF PRESENT ILLNESS: This 36-year-old male patient presented to the emergency department ambulatory with a gradual onset of a severe generalized headache that started approximately 7 hours ago. The patient states the migraine is similar to their typical migraines. There has been associated photophobia, phonophobia, nausea but no vomiting. The patient denies fever or chills recently, and there is no weakness or numbness of the extremities. There is no difficulty with speech or vision. No trauma to the head and no neck pain. The pain is severe, constant, and it is slowly increasing in severity. The patient rates the pain as throbbing and 8/10. The patient has taken OxyIR without relief. This is not the worst headache of the life and is similar to previous migraines. Previous imaging studies of the brain have been normal. REVIEW OF SYSTEMS: A review of systems was performed with positives and pertinent negatives listed in the history of present illness. All other systems were reviewed and are negative. ALLERGIES: Meperidine, metoclopramide MEDICATIONS: Centrum PMH: Migraine headaches SOCIAL HISTORY: The patient lives locally with family. PHYSICAL EXAM: Vital Signs: Reviewed Nurse's notes, vital signs stable. GENERAL : This is a 36-year-old male, who appears in pain, but non toxic in appearance and in no acute distress. MENTAL STATUS: Alert, oriented, and coherent. HEENT: Normocephalic. PERRLA. EOMI. Nares patent without nuchal rigidity. Tympanic membranes pearly rodriguez without erythema or effusion bilaterally. Mucous membranes moist. NECK: Supple, no nuchal rigidity, nontender, no lymphadenopathy. HEART: Regular rhythm and normal rate without murmurs, ectopy, gallops, or rubs. LUNGS: Clear to auscultation bilaterally without wheezes, rales or rhonchi. No dullness to percussion. No accessory muscle use. No retractions. SKIN: Normal. NEUROLOGICAL: Pupils are round, equal and react to light. The optic fundi are normal and the discs are flat. The patient moves all extremities well and the gait is normal. EMERGENCY DEPARTMENT COURSE: I examined the patient. The patient is on a 2 narcotic injection per month treatment plan for their migraines. The patient was given 3 mg Dilaudid IM, 60 mg Toradol IM, and 4 mg Zofran by mouth per their usual protocol. The differential diagnosis includes acute intracranial bleed, meningitis, encephalitis, mass or mass effect, sinusitis, infection, tumor, headache, temporal arteritis and carbon monoxide exposure, and migraine. The patient was discharged home in stable condition with his driving. DIAGNOSIS: Migraine headache Problem List Medical Problems: (1) Abdominal pain Status: Resolved (2) Chronic sinusitis Status: Resolved (3) Headache Status: Resolved (4) Headache Status: Resolved (5) Headache Status: Resolved (6) IDIOPATHIC SCOLIOSIS Status: Chronic (7) Kidney stone Status: Resolved (8) Migraine Status: Resolved (9) Migraine Status: Resolved (10) Migraine Status: Resolved (11) Migraine Status: Resolved (12) Migraine Status: Resolved (13) Migraine Status: Resolved (14) Migraine headache Status: Resolved (15) Migraine headache Status: Resolved (16) Migraine headache Status: Resolved (17) Migraine headache Status: Resolved (18) MIGRAINE UNSPECIFIED W/O INTRACT MGRN W/O STATUS MIGRAINOSUS Status: Chronic (19) Shortness of breath Status: Resolved (20) TOBACCO USE DISORDER Status: Chronic Current/Historical Medications Scheduled Multiple Vitamins W/ Minerals (Centrum), 1 TAB PO DAILY Oxymorphone Hcl (Opana Er (Crush Resistant), 1 TAB PO BID Scheduled PRN Hydrocodon/Acetaminophen 5MG/300MG (Vicodin (5MG/300MG)), 1 TAB PO Q4H PRN for Pain Allergies Coded Allergies: Meperidine (Verified Adverse Reaction, Unknown, ANXIETY, 04/20/16) Metoclopramide (Verified Adverse Reaction, Unknown, ANXIETY, 04/20/16) Vital Signs Date Time Temp Pulse Resp B/P Pulse Ox O2 Delivery O2 Flow Rate FiO2 05/02/16 22:12 78 20 127/82 98 05/02/16 20:08 36.6 65 16 125/68 100 Room Air Medications Administered Medications (Trade) Dose Ordered Sig/Babs Route Start Time Stop Time Status Last Admin Dose Admin Hydromorphone HCl (Dilaudid Inj) 3 mg NOW STAT IM 05/02/16 21:39 05/02/16 21:41 DC 05/02/16 21:53 3 MG Ketorolac Tromethamine (Toradol Inj) 60 mg NOW STAT IM 05/02/16 21:39 05/02/16 21:41 DC 05/02/16 21:53 60 MG Ondansetron HCl (Zofran Odt) 4 mg NOW STAT PO 05/02/16 21:39 05/02/16 21:41 DC 05/02/16 21:53 4 MG Departure Information Impression Primary Impression: Migraine Dispostion Home / Self-Care Condition GOOD Referrals Santa Reese M.D. (PCP) Patient Instructions My [facility] Additional Instructions You have been treated in the Emergency Department for a Headache. You have received pain medicine in the emergency department which impairs your ability to operate a vehicle. It is illegal for you to drive after receiving these medicines. For pain control, you can use the following [id number] medicines (if >12 yo): - Regular strength (325mg/tab) Tylenol (acetaminophen) 2 tabs every 4-6 hours as needed. Do not exceed 12 tablets in a 24 hour period. Avoid taking more than 4 grams (4000 mg) of Tylenol per day. This includes any other sources of acetaminophen you may take on a regular basis. - Regular strength (200 mg/tab) Advil (ibuprofen) 1-2 tabs every 4-6 hours as needed. Do not exceed a dose of 3200 mg per day. You should relax in a quiet, dark place for the rest of the day. Avoid any possible triggers including: cigarette smoke, caffeine, nicotine, chocolate, wine, beer, loud noises or music, or bright lights. You should schedule a follow-up appointment in 2-3 days with your Primary Care Provider or established Neurologist for further evaluation and treatment of your Headache. Return to the Emergency Department if your current symptoms worsen despite treatment course outlined above, or if you develop any of the following symptoms : intractable pain despite aforementioned treatment course, visual disturbances , loss of vision, unilateral weakness or facial drooping, slurring of speech, loss of coordination, or loss of consciousness.
[2016-05-02 22:12] VITALS: BP 127/82; PULSE 78; O2SAT 98
== END 2016-05-02 21:50 | disposition home or self-care (01) ==
LOC: C.EDB 20:07
DX: G43.909 Migraine, unspecified, not intractable, without status migrainosus (principal); M41.20 Other idiopathic scoliosis, site unspecified; Z72.0 Tobacco use

== ENCOUNTER 2016-05-14 07:50 | Emergency (ER) | payer OTHER ==
[~2016-05-14] VITALS: Ht 180.3 cm; Wt 81.6 kg
[2016-05-14 07:52] VITALS: BP 132/77; PULSE 88; TEMP 36.6; O2SAT 99; Ht 180.3 cm; Wt 81.6 kg
[2016-05-14] MEDS ORDERED: KETOROLAC TROMETHAMINE 60 MG/2 ML VIAL IM STA (08:00)
[2016-05-14] MEDS ORDERED: ONDANSETRON 4MG OD TAB PO ONE (08:00)
[2016-05-14] MEDS ORDERED: HYDROmorphone INJ 1 MG/ML SYR IM STA (08:00)
--- NOTE | 2016-05-14 08:07 | EMERGENCY ROOM VISIT NOTE ---
History First contact with patient: 07:56 Chief Complaint: HEADACHE Stated Complaint: MIGRAINE History of Present Illness The patient is a 36 year old male who presents to the Emergency Room with complaints of a migraine headache that awakened him around 1 AM this morning. The patient reports nausea without vomiting, light sensitivity and typical left- sided throbbing headache. The patient reports that this is similar to all prior migrainous event. It is not the worse headache of his life. He denies any recent head injury, infections, sinus congestion or visual disturbance. He also denies risk for carbon monoxide exposure. He rates his discomfort a 9 out of 10. Review of Systems 10 system review was performed and was negative except for pertinent positives and negatives as indicated in history of present illness Past Medical/Surgical History Medical Problems: (1) Abdominal pain (2) Chronic sinusitis (3) Headache (4) Headache (5) Headache (6) IDIOPATHIC SCOLIOSIS (7) Kidney stone (8) Migraine (9) Migraine (10) Migraine (11) Migraine (12) Migraine (13) Migraine (14) Migraine headache (15) Migraine headache (16) Migraine headache (17) Migraine headache (18) MIGRAINE UNSPECIFIED W/O INTRACT MGRN W/O STATUS MIGRAINOSUS (19) Shortness of breath (20) TOBACCO USE DISORDER Family History FHx: headache Kidney stones Social History Smoking Status: Never Smoker Alcohol Use: none Drug Use: none Marital Status: Housing Status: lives with family Occupation Status: unemployed Current/Historical Medications Scheduled Multiple Vitamins W/ Minerals (Centrum), 1 TAB PO DAILY Oxymorphone Hcl (Opana Er (Crush Resistant), 1 TAB PO BID Scheduled PRN Hydrocodon/Acetaminophen 5MG/300MG (Vicodin (5MG/300MG)), 1 TAB PO Q4H PRN for Pain Allergies Coded Allergies: Meperidine (Verified Adverse Reaction, Unknown, ANXIETY, 04/20/16) Metoclopramide (Verified Adverse Reaction, Unknown, ANXIETY, 04/20/16) Physical Exam Vital Signs Date Time Temp Pulse Resp B/P Pulse Ox O2 Delivery O2 Flow Rate FiO2 05/14/16 07:52 36.6 88 20 132/77 99 Room Air Physical Exam CONSTITUTIONAL: Healthy and well nourished. Alert and oriented X 3 with positive affect. HEENT: Normocephalic, atraumatic. Pupils equal, round and reactive. Patient is photophobic, precluding funduscopic exam. NECK: Full active range of motion without discomfort. No JVD or carotid bruits. No nuchal rigidity. RESPIRATORY: Clear to auscultation bilaterally with no wheezing, crackles, rhonchi or stridor. CARDIOVASCULAR: Regular rate and rhythm with no murmurs, rubs or gallops. MUSCULOSKELETAL: Full range of motion of all joints without discomfort. INTEGUMENTARY: No rash or other significant dermatologic conditions noted. NEUROLOGIC: Cranial nerves II-XII grossly intact. No focal neurologic deficits noted. Normal finger to nose test. Negative pronator drift. No ataxia noted with ambulation from triage to his exam room. Medical Decision & Procedures ED Course Patient history and physical exam were performed. Nurse's notes were reviewed. Vital signs were reviewed and were normal. Review of medical records shows that the patient is currently on a treatment plan for his migraines. The patient was administered Dilaudid 3 mg and Toradol 60 mg IM, along with Zofran 4 mg ODT. Because of the went or whether, the patient requested immediate discharge. He was instructed to return for any progressively worsening symptoms. The patient was happy with plan of care, and rated his pain a 7 out of 10 at the time of discharge. Medical Decision Patient has a history of migraines. He reports that it is not the worse headache of his life, and typical for his migraines. Based on history and physical exam findings, I do not suspect meningitis, CVA/TIA, thromboembolic event, abscess, intracranial bleeding or carbon monoxide poisoning. Impression Primary Impression: Migraine Departure Information Dispostion Home / Self-Care Referrals No Doctor, Assigned (PCP) Forms HOME CARE DOCUMENTATION FORM, IMPORTANT VISIT INFORMATION Patient Instructions My [facility] [place] [employer] Additional Instructions Rest and remain well-hydrated. Return for any progressively worsening headache, fever or other concerning symptoms. Problem Qualifiers Primary Impression: Migraine Migraine type: without aura Status migrainosus presence: without status migrainosus Intractability: not intractable Qualified Codes: G43.009 - Migraine without aura, not intractable, without status migrainosus
== END 2016-05-14 08:13 | disposition home or self-care (01) ==
LOC: C.EDB 07:52 → C.EDA 08:13
DX: G43.909 Migraine, unspecified, not intractable, without status migrainosus (principal); F17.200 Nicotine dependence, unspecified, uncomplicated; Z87.442 Personal history of urinary calculi

== ENCOUNTER 2016-06-01 08:13 | Emergency (ER) | payer OTHER ==
[~2016-06-01] VITALS: Ht 180.3 cm; Wt 77.9 kg
[2016-06-01 08:16] VITALS: TEMP 36.8; Ht 180.3 cm; Wt 77.9 kg
[2016-06-01] MEDS ORDERED: ONDANSETRON 4MG OD TAB PO STA (08:26)
[2016-06-01] MEDS ORDERED: KETOROLAC TROMETHAMINE 60 MG/2 ML VIAL IM STA (08:26)
[2016-06-01] MEDS ORDERED: HYDROmorphone INJ 1 MG/ML SYR IM STA (08:26)
--- NOTE | 2016-06-01 08:32 | EMERGENCY ROOM VISIT NOTE ---
ED Visit Note First contact with patient: 08:18 CHIEF COMPLAINT: Migraine headache HISTORY OF PRESENT ILLNESS: This 36-year-old male patient presented to the emergency department via private vehicle accompanied by and [id number] daughter with a gradual onset of a severe generalized headache that started yesterday around 3 PM. The patient states the migraine is similar to their typical migraines. There has been associated photophobia, phonophobia, nausea but no vomiting. The patient denies fever or chills recently, and there is no weakness or numbness of the extremities. There is no difficulty with speech or vision. No trauma to the head and no neck pain. The pain is severe, constant, and it is slowly increasing in severity. The patient rates the pain as 9/10. This is not the worst headache of the life and is similar to previous migraines. Previous imaging studies of the brain have been normal. REVIEW OF SYSTEMS: A review of systems was performed with positives and pertinent negatives listed in the history of present illness. All other systems were reviewed and are negative. ALLERGIES: As noted above MEDICATIONS: As noted below PMH: Migraine headaches SOCIAL HISTORY: Patient was at home with family PHYSICAL EXAM: Vital Signs: Reviewed Nurse's notes, vital signs stable. GENERAL : 36-year-old male, who appears in pain, but non toxic in appearance and in no acute distress. MENTAL STATUS: Alert, oriented, and coherent. HEENT: Normocephalic. PERRLA. EOMI. Nares patent without nuchal rigidity. Tympanic membranes pearly rodriguez without erythema or effusion bilaterally. Mucous membranes moist. NECK: Supple, no nuchal rigidity, nontender, no lymphadenopathy. HEART: Regular rhythm and normal rate without murmurs, ectopy, gallops, or rubs. LUNGS: Clear to auscultation bilaterally without wheezes, rales or rhonchi. No dullness to percussion. No accessory muscle use. No retractions. SKIN: Normal. NEUROLOGICAL: Pupils are round, equal and react to light. The patient moves all extremities well and the gait is normal. EMERGENCY DEPARTMENT COURSE: I examined the patient. The patient is on a 2 narcotic injection per month treatment plan for their migraines. The patient was given 3 mg of Dilaudid IM, 60 mg of Toradol IM, as well as 4 mg of Zofran ODT per their usual protocol. The differential diagnosis includes acute intracranial bleed, meningitis, encephalitis, mass or mass effect, sinusitis, infection, tumor, headache, temporal arteritis and carbon monoxide exposure, and migraine. The patient was discharged home in stable condition with driving. Problem List Medical Problems: (1) Abdominal pain Status: Resolved (2) Chronic sinusitis Status: Resolved (3) Headache Status: Resolved (4) Headache Status: Resolved (5) Headache Status: Resolved (6) IDIOPATHIC SCOLIOSIS Status: Chronic (7) Kidney stone Status: Resolved (8) Migraine Status: Resolved (9) Migraine Status: Resolved (10) Migraine Status: Resolved (11) Migraine Status: Resolved (12) Migraine Status: Resolved (13) Migraine Status: Resolved (14) Migraine headache Status: Resolved (15) Migraine headache Status: Resolved (16) Migraine headache Status: Resolved (17) Migraine headache Status: Resolved (18) MIGRAINE UNSPECIFIED W/O INTRACT MGRN W/O STATUS MIGRAINOSUS Status: Chronic (19) Shortness of breath Status: Resolved (20) TOBACCO USE DISORDER Status: Chronic Current/Historical Medications Scheduled Multiple Vitamins W/ Minerals (Centrum), 1 TAB PO DAILY Oxymorphone Hcl (Opana Er (Crush Resistant), 1 TAB PO BID Scheduled PRN Hydrocodon/Acetaminophen 5MG/300MG (Vicodin (5MG/300MG)), 1 TAB PO Q4H PRN for Pain Allergies Coded Allergies: Meperidine (Verified Adverse Reaction, Unknown, ANXIETY, 06/01/16) Metoclopramide (Verified Adverse Reaction, Unknown, ANXIETY, 06/01/16) Vital Signs Date Time Temp Pulse Resp B/P Pulse Ox O2 Delivery O2 Flow Rate FiO2 06/01/16 08:16 36.8 87 18 131/71 98 Room Air Medications Administered Medications (Trade) Dose Ordered Sig/Babs Route Start Time Stop Time Status Last Admin Dose Admin Hydromorphone HCl (Dilaudid Inj) 3 mg NOW STAT IM 06/01/16 08:26 06/01/16 08:30 DC 06/01/16 08:35 3 MG Ketorolac Tromethamine (Toradol Inj) 60 mg NOW STAT IM 06/01/16 08:26 06/01/16 08:30 DC 06/01/16 08:34 60 MG Ondansetron HCl (Zofran Odt) 4 mg NOW STAT PO 06/01/16 08:26 06/01/16 08:30 DC 06/01/16 08:33 4 MG Departure Information Impression Primary Impression: Migraine Dispostion Home / Self-Care Condition GOOD Referrals Santa Reese MD (PCP) Patient Instructions My [facility] Additional Instructions You have been treated in the Emergency Department for a Headache. For pain control, you can use the following [id number] medicines (if >12 yo): - Regular strength (325mg/tab) Tylenol (acetaminophen) 2 tabs every 4-6 hours as needed. Do not exceed 12 tablets in a 24 hour period. Avoid taking more than 4 grams (4000 mg) of Tylenol per day. This includes any other sources of acetaminophen you may take on a regular basis. - Regular strength (200 mg/tab) Advil (ibuprofen) 1-2 tabs every 4-6 hours as needed. Do not exceed a dose of 3200 mg per day. You should relax in a quiet, dark place for the rest of the day. Avoid any possible triggers including: cigarette smoke, caffeine, nicotine, chocolate, wine, beer, loud noises or music, or bright lights. You should schedule a follow-up appointment in 2-3 days with your Primary Care Provider or established Neurologist for further evaluation and treatment of your Headache. Return to the Emergency Department if your current symptoms worsen despite treatment course outlined above, or if you develop any of the following symptoms : intractable pain despite aforementioned treatment course, visual disturbances , loss of vision, unilateral weakness or facial drooping, slurring of speech, loss of coordination, or loss of consciousness. Please return to the emergency department with any new/concerning symptoms.
[2016-06-01 09:13] VITALS: BP 127/86; PULSE 82; O2SAT 98
--- NOTE | 2016-06-01 09:21 | EMERGENCY ROOM VISIT NOTE ---
ED Visit Note First contact with patient: 08:18 I have personally seen and evaluated the patient with the PA. I agree with the diagnosis and management decisions and have been personally involved in the case. Please see Pa Josue PA-C's notes for further details of the history, physical and visit.
== END 2016-06-01 09:14 | disposition home or self-care (01) ==
LOC: C.EDB 08:14
DX: G43.909 Migraine, unspecified, not intractable, without status migrainosus (principal); F17.200 Nicotine dependence, unspecified, uncomplicated; Z87.442 Personal history of urinary calculi; Z86.19 Personal history of other infectious and parasitic diseases; Z88.8 Allergy status to other drugs, medicaments and biological substances

== ENCOUNTER 2016-06-02 11:36 | Emergency (ER) | payer OTHER ==
[~2016-06-02] VITALS: Ht 180.3 cm; Wt 77.2 kg
[2016-06-02 11:37] VITALS: BP 132/79; PULSE 68; TEMP 36.7; O2SAT 97; Ht 180.3 cm; Wt 77.2 kg
[2016-06-02] MEDS ORDERED: KETOROLAC TROMETHAMINE 60 MG/2 ML VIAL IM STA (11:58)
[2016-06-02] MEDS ORDERED: ONDANSETRON 4MG OD TAB PO STA (11:58)
[2016-06-02] MEDS ORDERED: HYDROmorphone INJ 1 MG/ML SYR IM STA (11:58)
--- NOTE | 2016-06-02 12:26 | EMERGENCY ROOM VISIT NOTE ---
ED Visit Note First contact with patient: 11:41 CHIEF COMPLAINT: "Migraine, neck pain". HISTORY OF PRESENT ILLNESS: This 36-year-old male patient presented to the emergency department via private vehicle accompanied by female and daughter with a gradual onset of a severe generalized headache that started this morning around 5 AM. The patient states the migraine is similar to their typical migraines. There has been associated photophobia, phonophobia, nausea but no vomiting. The patient denies fever or chills recently, and there is no weakness or numbness of the extremities. There is no difficulty with speech or vision. No trauma to the head and no neck pain. The pain is severe, constant, and it is slowly increasing in severity. The patient rates the pain as 8/10. This is not the worst headache of the life and is similar to previous migraines. Previous imaging studies of the brain have been normal. The patient was seen by me yesterday. When asked if this is similar to yesterday's headache he states that it is near identical. He has been here many times for similar. REVIEW OF SYSTEMS: A review of systems was performed with positives and pertinent negatives listed in the history of present illness. All other systems were reviewed and are negative. ALLERGIES: As noted below MEDICATIONS: As noted below PMH: Migraines SOCIAL HISTORY: Patient lives at home with family PHYSICAL EXAM: Vital Signs: Reviewed Nurse's notes, vital signs stable. GENERAL : 36-year-old male, who appears in pain, but non toxic in appearance and in no acute distress. MENTAL STATUS: Alert, oriented, and coherent. HEENT: Normocephalic. PERRLA. EOMI. Nares patent without nuchal rigidity. Tympanic membranes pearly rodriguez without erythema or effusion bilaterally. Mucous membranes moist. NECK: Supple, no nuchal rigidity, nontender, no lymphadenopathy. HEART: Regular rhythm and normal rate without murmurs, ectopy, gallops, or rubs. LUNGS: Clear to auscultation bilaterally without wheezes, rales or rhonchi. No dullness to percussion. No accessory muscle use. No retractions. SKIN: Normal. NEUROLOGICAL: Pupils are round, equal and react to light. The optic fundi are normal and the discs are flat. The patient moves all extremities well and the gait is normal. EMERGENCY DEPARTMENT COURSE: I examined the patient. The patient is on a 2 narcotic injection per month treatment plan for their migraines. The patient was given 3 mg of Dilaudid IM, 60 mg of Toradol IM as well as 4 mg of Zofran ODT which was sublingually administered per their usual protocol. The differential diagnosis includes acute intracranial bleed, meningitis, encephalitis, mass or mass effect, sinusitis, infection, tumor, headache, temporal arteritis and carbon monoxide exposure, and migraine. The patient was discharged home in stable condition with female driving. The patient was seen yesterday by me personally. He is nontoxic upon examination. The headache is very similar to previous. I do not believe that imaging or laboratory studies at this time will be beneficial. He is to follow-up with his neurologist and family doctor as soon as possible. He is to return here for any worsening of his symptoms as discussed. He is aware this is his second injection series of the month. In the evaluation and treatment of this patient, the following differential diagnoses were considered: Migraine Headache, Intracranial Hemorrhage, Subdural Hematoma, Subarachnoid Hemorrhage, Cerebral Aneurysm, Temporal/Giant Cell Arteritis, Tension Headache, Meningitis, Encephalitis, or Hydrocephalus. Problem List Medical Problems: (1) Abdominal pain Status: Resolved (2) Chronic sinusitis Status: Resolved (3) Headache Status: Resolved (4) Headache Status: Resolved (5) Headache Status: Resolved (6) IDIOPATHIC SCOLIOSIS Status: Chronic (7) Kidney stone Status: Resolved (8) Migraine Status: Resolved (9) Migraine Status: Resolved (10) Migraine Status: Resolved (11) Migraine Status: Resolved (12) Migraine Status: Resolved (13) Migraine Status: Resolved (14) Migraine headache Status: Resolved (15) Migraine headache Status: Resolved (16) Migraine headache Status: Resolved (17) Migraine headache Status: Resolved (18) MIGRAINE UNSPECIFIED W/O INTRACT MGRN W/O STATUS MIGRAINOSUS Status: Chronic (19) Shortness of breath Status: Resolved (20) TOBACCO USE DISORDER Status: Chronic Current/Historical Medications Scheduled Multiple Vitamins W/ Minerals (Centrum), 1 TAB PO DAILY Oxymorphone Hcl (Opana Er (Crush Resistant), 1 TAB PO BID Scheduled PRN Hydrocodon/Acetaminophen 5MG/300MG (Vicodin (5MG/300MG)), 1 TAB PO Q4H PRN for Pain Allergies Coded Allergies: Meperidine (Verified Adverse Reaction, Unknown, ANXIETY, 4/2/17) Metoclopramide (Verified Adverse Reaction, Unknown, ANXIETY, 06/02/16) Vital Signs Date Time Temp Pulse Resp B/P Pulse Ox O2 Delivery O2 Flow Rate FiO2 06/02/16 11:37 36.7 68 18 132/79 97 Room Air Medications Administered Medications (Trade) Dose Ordered Sig/Babs Route Start Time Stop Time Status Last Admin Dose Admin Hydromorphone HCl (Dilaudid Inj) 3 mg NOW STAT IM 06/02/16 11:58 06/02/16 12:00 DC 06/02/16 12:13 3 MG Ketorolac Tromethamine (Toradol Inj) 60 mg NOW STAT IM 06/02/16 11:58 06/02/16 12:00 DC 06/02/16 12:13 60 MG Ondansetron HCl (Zofran Odt) 4 mg NOW STAT PO 06/02/16 11:58 06/02/16 12:00 DC 06/02/16 12:12 4 MG Departure Information Impression Primary Impression: Headache Dispostion Home / Self-Care Condition GOOD Referrals Santa Reese MD (PCP) Patient Instructions My [facility] Additional Instructions You have been treated in the Emergency Department for a Headache. You have received pain medicine in the emergency department which impairs your ability to operate a vehicle. It is illegal for you to drive after receiving these medicines. For pain control, you can use the following [id number] medicines (if >12 yo): - Regular strength (325mg/tab) Tylenol (acetaminophen) 2 tabs every 4-6 hours as needed. Do not exceed 12 tablets in a 24 hour period. Avoid taking more than 4 grams (4000 mg) of Tylenol per day. This includes any other sources of acetaminophen you may take on a regular basis. - Regular strength (200 mg/tab) Advil (ibuprofen) 1-2 tabs every 4-6 hours as needed. Do not exceed a dose of 3200 mg per day. You should relax in a quiet, dark place for the rest of the day. Avoid any possible triggers including: cigarette smoke, caffeine, nicotine, chocolate, wine, beer, loud noises or music, or bright lights. You should schedule a follow-up appointment in 2-3 days with your Primary Care Provider or established Neurologist for further evaluation and treatment of your Headache. Return to the Emergency Department if your current symptoms worsen despite treatment course outlined above, or if you develop any of the following symptoms : intractable pain despite aforementioned treatment course, visual disturbances , loss of vision, unilateral weakness or facial drooping, slurring of speech, loss of coordination, or loss of consciousness. Please return to the emergency department with any new/concerning symptoms.
--- NOTE | 2016-06-02 13:27 | EMERGENCY ROOM VISIT NOTE ---
ED Visit Note First contact with patient: 12:27 I have personally seen and evaluated the patient with the PA. I agree with the diagnosis and management decisions and have been personally involved in the case. Please see Pa Josue PA-C's notes for further details of the history, physical and visit.
== END 2016-06-02 13:00 | disposition home or self-care (01) ==
LOC: C.EDB 11:37 → C.EDD 13:00
DX: R51 Headache (principal); F17.200 Nicotine dependence, unspecified, uncomplicated; Z87.442 Personal history of urinary calculi; Z79.899 Other long term (current) drug therapy; Z88.8 Allergy status to other drugs, medicaments and biological substances

== ENCOUNTER 2016-06-28 20:37 | Emergency (ER) | payer OTHER ==
[~2016-06-28] VITALS: Ht 180.3 cm; Wt 74.2 kg
[2016-06-28 20:40] VITALS: TEMP 36.7; Ht 180.3 cm; Wt 74.2 kg
[2016-06-28] MEDS ORDERED: KETOROLAC TROMETHAMINE 60 MG/2 ML VIAL IM STA (21:47)
[2016-06-28 22:11] VITALS: BP 150/51; PULSE 58; O2SAT 99
--- NOTE | 2016-06-28 22:16 | EMERGENCY ROOM VISIT NOTE ---
ED Visit Note First contact with patient: 21:33 CHIEF COMPLAINT: Migraine headache HISTORY OF PRESENT ILLNESS: This 36-year-old male patient presented to the emergency department with a gradual onset of a severe generalized headache that started earlier today. The patient states the migraine is similar to their typical migraines. There has been associated photophobia, phonophobia, nausea and vomiting. The patient denies fever or chills recently, and there is no weakness or numbness of the extremities. There is no difficulty with speech or vision. No trauma to the head and no neck pain. The pain is severe, constant, and it is slowly increasing in severity. The patient rates the pain as dull and 8/10. The patient has taken nothing with relief. This is not the worst headache of the life and is similar to previous migraines. Previous imaging studies of the brain have been normal. REVIEW OF SYSTEMS: A review of systems was performed with positives and pertinent negatives listed in the history of present illness. All other systems were reviewed and are negative. ALLERGIES: See EMR MEDICATIONS: See EMR PMH: Chronic migraines SOCIAL HISTORY: Lives at home with family PHYSICAL EXAM: Vital Signs: Reviewed Nurse's notes, vital signs stable. GENERAL: White male, who appears in pain, but non toxic in appearance and in no acute distress. MENTAL STATUS: Alert, oriented, and coherent. HEENT: Normocephalic. PERRLA. EOMI. Nares patent without nuchal rigidity. Tympanic membranes pearly rodriguez without erythema or effusion bilaterally. Mucous membranes moist. NECK: Supple, no nuchal rigidity, nontender, no lymphadenopathy. HEART: Regular rhythm and normal rate without murmurs, ectopy, gallops, or rubs. LUNGS: Clear to auscultation bilaterally without wheezes, rales or rhonchi. No dullness to percussion. No accessory muscle use. No retractions. SKIN: Normal. NEUROLOGICAL: Pupils are round, equal and react to light. The optic fundi are normal and the discs are flat. The patient moves all extremities well and the gait is normal. EMERGENCY DEPARTMENT COURSE: I examined the patient. The patient is on a 2 narcotic injection per month treatment plan for their migraines. Today is the 3rd visit of the month for migraines. He will be given 60 mg IM Toradol. The differential diagnosis includes acute intracranial bleed, meningitis, encephalitis, mass or mass effect, sinusitis, infection, tumor, headache, temporal arteritis and carbon monoxide exposure, and migraine. The patient was discharged home in stable condition with his driving. Problem List Medical Problems: (1) Abdominal pain Status: Resolved (2) Chronic sinusitis Status: Resolved (3) Headache Status: Resolved (4) Headache Status: Resolved (5) Headache Status: Resolved (6) IDIOPATHIC SCOLIOSIS Status: Chronic (7) Kidney stone Status: Resolved (8) Migraine Status: Resolved (9) Migraine Status: Resolved (10) Migraine Status: Resolved (11) Migraine Status: Resolved (12) Migraine Status: Resolved (13) Migraine Status: Resolved (14) Migraine headache Status: Resolved (15) Migraine headache Status: Resolved (16) Migraine headache Status: Resolved (17) Migraine headache Status: Resolved (18) MIGRAINE UNSPECIFIED W/O INTRACT MGRN W/O STATUS MIGRAINOSUS Status: Chronic (19) Shortness of breath Status: Resolved (20) TOBACCO USE DISORDER Status: Chronic Current/Historical Medications Scheduled Multiple Vitamins W/ Minerals (Centrum), 1 TAB PO DAILY Oxymorphone Hcl (Oxymorphone Hydrochloride), 10 MG PO BID Scheduled PRN Hydrocodone/Acetaminophen 5MG/325MG ([place] 5MG/325MG), 1 TABLET PO Q4H PRN for Neck/Headache Pain Allergies Coded Allergies: Meperidine (Verified Adverse Reaction, Unknown, ANXIETY, 06/02/16) Metoclopramide (Verified Adverse Reaction, Unknown, ANXIETY, 06/02/16) Vital Signs Date Time Temp Pulse Resp B/P Pulse Ox O2 Delivery O2 Flow Rate FiO2 06/28/16 22:11 58 18 150/51 99 Room Air 06/28/16 20:40 36.7 76 18 127/76 95 Room Air Medications Administered Medications (Trade) Dose Ordered Sig/Babs Route Start Time Stop Time Status Last Admin Dose Admin Ketorolac Tromethamine (Toradol Inj) 60 mg NOW STAT IM 06/28/16 21:47 06/28/16 21:48 DC 06/28/16 21:58 60 MG Departure Information Impression Primary Impression: Headache Dispostion Home / Self-Care Condition GOOD Referrals Santa Reese MD (PCP) Forms HOME CARE DOCUMENTATION FORM, IMPORTANT VISIT INFORMATION Patient Instructions My [facility] Additional Instructions You were seen and evaluated today on an emergency basis only. This is not a substitute for, or an effort to provide, complete comprehensive medical care. It is not possible to recognize and treat all injuries or illnesses in a single emergency department visit. For this reason it is recommended that you followup with your primary care physician or neurologist this week for ongoing care and evaluation. DO NOT drive, drink alcohol, operate machinery, or perform dangerous activities today. You were given medications in the ER that can affect your ability to safely function or operate a vehicle. Rest today in a quiet, peaceful, dark environment and get a full 8-10 hrs of sleep tonight. Avoid loud noises, smoke/smoking, alcohol, bright lights, stress, or physical exertion today to minimize the chance the headache may return. Continue current medications. Ibuprofen(Motrin, Advil) may be used for fever or pain. Use 600mg every six hours as needed. Take with food. Avoid using more than 2400mg in a 24 hour period. Do not use 2400mg per day for more than three consecutive days without physician direction. Prolonged inappropriate use can lead to stomach upset or ulcers. (AND/OR) Acetaminophen(Tylenol) may be used for fever or pain. Use 1000mg every six hours as needed. Avoid using more than 4000mg in a 24 hour period. Return to the ER for passing out, worsening headache, vision problems, neck stiffness/pain, fevers, vomiting, worsening of your condition, or as needed.
== END 2016-06-28 22:12 | disposition home or self-care (01) ==
LOC: C.EDB 20:38 → C.EDD 22:12
DX: R51 Headache (principal); F17.200 Nicotine dependence, unspecified, uncomplicated; Z87.442 Personal history of urinary calculi; Z88.8 Allergy status to other drugs, medicaments and biological substances

== ENCOUNTER 2016-07-02 00:01 | Emergency (ER) | payer OTHER ==
[~2016-07-02] VITALS: Ht 180.3 cm; Wt 75.8 kg
[2016-07-02 00:05] VITALS: TEMP 36.7; Ht 180.3 cm; Wt 75.8 kg
[2016-07-02] MEDS ORDERED: ONDANSETRON 4MG OD TAB PO STA (00:32)
[2016-07-02] MEDS ORDERED: HYDROmorphone INJ 1 MG/ML SYR IM STA (00:32)
[2016-07-02] MEDS ORDERED: KETOROLAC TROMETHAMINE 60 MG/2 ML VIAL IM STA (00:32)
--- NOTE | 2016-07-02 00:39 | EMERGENCY ROOM VISIT NOTE ---
ED Visit Note First contact with patient: 00:14 CHIEF COMPLAINT: Migraine headache HISTORY OF PRESENT ILLNESS: This 36-year-old male patient presented to the emergency department ambulatory with a gradual onset of a severe generalized headache that started approximately 8 hours ago. The patient states the migraine is similar to their typical migraines. There has been associated photophobia, phonophobia, nausea and vomiting. The patient denies fever or chills recently, and there is no weakness or numbness of the extremities. There is no difficulty with speech or vision. No trauma to the head and no neck pain. The pain is severe, constant, and it is slowly increasing in severity. The patient rates the pain as throbbing and 8/10. The patient has taken his Opana and Vicodin without relief. This is not the worst headache of the life and is similar to previous migraines. Previous imaging studies of the brain have been normal. REVIEW OF SYSTEMS: A review of systems was performed with positives and pertinent negatives listed in the history of present illness. All other systems were reviewed and are negative. ALLERGIES: Meperidine, Metoclopramide MEDICATIONS: See med list PMH: Migraine headaches SOCIAL HISTORY: The patient lives locally with family. Nonsmoker. PHYSICAL EXAM: Vital Signs: Reviewed Nurse's notes, vital signs stable. GENERAL : This is a 36-year-old male, who appears in pain, but non toxic in appearance and in no acute distress. MENTAL STATUS: Alert, oriented, and coherent. HEENT: Normocephalic. PERRLA. EOMI. Nares patent without nuchal rigidity. Tympanic membranes pearly rodriguez without erythema or effusion bilaterally. Mucous membranes moist. NECK: Supple, no nuchal rigidity, nontender, no lymphadenopathy. HEART: Regular rhythm and normal rate without murmurs, ectopy, gallops, or rubs. LUNGS: Clear to auscultation bilaterally without wheezes, rales or rhonchi. No dullness to percussion. No accessory muscle use. No retractions. SKIN: Normal. NEUROLOGICAL: Pupils are round, equal and react to light. The optic fundi are normal and the discs are flat. The patient moves all extremities well and the gait is normal. EMERGENCY DEPARTMENT COURSE: I examined the patient. The patient is on a 2 narcotic injection per month treatment plan for their migraines. The patient was given 3 mg Dilaudid IM, 60 mg Toradol IM and 4 mg Zofran by mouth per their usual protocol. The differential diagnosis includes acute intracranial bleed, meningitis, encephalitis, mass or mass effect, sinusitis, infection, tumor, headache, temporal arteritis and carbon monoxide exposure, and migraine. The patient was discharged home in stable condition with his driving. The patient was independently evaluated by Dr. Kimball, ED attending physician , who agreed with my assessment and treatment plan. DIAGNOSIS: Migraine headache Problem List Medical Problems: (1) Abdominal pain Status: Resolved (2) Chronic sinusitis Status: Resolved (3) Headache Status: Resolved (4) Headache Status: Resolved (5) Headache Status: Resolved (6) IDIOPATHIC SCOLIOSIS Status: Chronic (7) Kidney stone Status: Resolved (8) Migraine Status: Resolved (9) Migraine Status: Resolved (10) Migraine Status: Resolved (11) Migraine Status: Resolved (12) Migraine Status: Resolved (13) Migraine Status: Resolved (14) Migraine headache Status: Resolved (15) Migraine headache Status: Resolved (16) Migraine headache Status: Resolved (17) Migraine headache Status: Resolved (18) MIGRAINE UNSPECIFIED W/O INTRACT MGRN W/O STATUS MIGRAINOSUS Status: Chronic (19) Shortness of breath Status: Resolved (20) TOBACCO USE DISORDER Status: Chronic Current/Historical Medications Scheduled Multiple Vitamins W/ Minerals (Centrum), 1 TAB PO DAILY Oxymorphone Hcl (Oxymorphone Hydrochloride), 10 MG PO BID Scheduled PRN Hydrocodone/Acetaminophen 5MG/325MG ([place] 5MG/325MG), 1 TABLET PO Q4H PRN for Neck/Headache Pain Allergies Coded Allergies: Meperidine (Verified Adverse Reaction, Unknown, ANXIETY, 07/02/16) Metoclopramide (Verified Adverse Reaction, Unknown, ANXIETY, 07/02/16) Vital Signs Date Time Temp Pulse Resp B/P Pulse Ox O2 Delivery O2 Flow Rate FiO2 07/02/16 00:05 36.7 77 16 112/72 99 Room Air Medications Administered Medications (Trade) Dose Ordered Sig/Babs Route Start Time Stop Time Status Last Admin Dose Admin Hydromorphone HCl (Dilaudid Inj) 3 mg NOW STAT IM 07/02/16 00:32 07/02/16 00:34 DC 07/02/16 00:47 3 MG Ketorolac Tromethamine (Toradol Inj) 60 mg NOW STAT IM 07/02/16 00:32 07/02/16 00:34 DC 07/02/16 00:47 60 MG Ondansetron HCl (Zofran Odt) 4 mg NOW STAT PO 07/02/16 00:32 07/02/16 00:34 DC 07/02/16 00:47 4 MG Departure Information Impression Primary Impression: Migraine Dispostion Home / Self-Care Condition GOOD Referrals Santa Reese MD (PCP) Patient Instructions My [facility] Additional Instructions You have been treated in the Emergency Department for a Headache. You have received pain medicine in the emergency department which impairs your ability to operate a vehicle. It is illegal for you to drive after receiving these medicines. You should follow-up with your Primary Care Provider or established Neurologist for further evaluation and treatment of your Headache. Return to the Emergency Department if your current symptoms worsen despite treatment course outlined above, or if you develop any of the following symptoms : intractable pain despite aforementioned treatment course, visual disturbances , loss of vision, unilateral weakness or facial drooping, slurring of speech, loss of coordination, or loss of consciousness.
--- NOTE | 2016-07-02 00:45 | EMERGENCY ROOM VISIT NOTE ---
ED Visit Note First contact with patient: 00:14 I have personally evaluated and examined this patient. I agree with assessment and plan of Anna Osorio PA-C.
[2016-07-02 01:06] VITALS: BP 123/78; PULSE 74; O2SAT 98
== END 2016-07-02 01:08 | disposition home or self-care (01) ==
LOC: C.EDB 00:02 → C.EDC 01:08
DX: G43.909 Migraine, unspecified, not intractable, without status migrainosus (principal); M41.20 Other idiopathic scoliosis, site unspecified

== ENCOUNTER 2016-07-06 09:00 | Emergency (ER) | payer OTHER ==
[~2016-07-06] VITALS: Ht 180.3 cm; Wt 74.2 kg
[2016-07-06 09:02] VITALS: TEMP 36.5; Ht 180.3 cm; Wt 74.2 kg
--- NOTE | 2016-07-06 09:22 | EMERGENCY ROOM VISIT NOTE ---
ED Visit Note First contact with patient: 09:09 CHIEF COMPLAINT: Migraine headache HISTORY OF PRESENT ILLNESS: This 36-year-old male patient presented to the emergency department via private vehicle accompanied by female with a gradual onset of a severe generalized headache that started last evening around 8 PM. The patient states the migraine is similar to their typical migraines. There has been associated photophobia, phonophobia, nausea but no vomiting. The patient denies fever or chills recently, and there is no weakness or numbness of the extremities. There is no difficulty with speech or vision. No trauma to the head and no neck pain. The pain is severe, constant, and it is slowly increasing in severity. The patient rates the pain as constant and 7-8/10. The patient has taken Opana and Vicodin. This is not the worst headache of the life and is similar to previous migraines. Previous imaging studies of the brain have been normal. REVIEW OF SYSTEMS: A review of systems was performed with positives and pertinent negatives listed in the history of present illness. All other systems were reviewed and are negative. ALLERGIES: As noted below MEDICATIONS: As noted below PMH: Migraine headaches SOCIAL HISTORY: Patient lives locally with family PHYSICAL EXAM: Vital Signs: Reviewed Nurse's notes, vital signs stable. GENERAL : 36-year-old male, who appears in pain, but non toxic in appearance and in no acute distress. MENTAL STATUS: Alert, oriented, and coherent. HEENT: Normocephalic. PERRLA. EOMI. Nares patent without nuchal rigidity. Tympanic membranes pearly rodriguez without erythema or effusion bilaterally. Mucous membranes moist. NECK: Supple, no nuchal rigidity, nontender, no lymphadenopathy. HEART: Regular rhythm and normal rate without murmurs, ectopy, gallops, or rubs. LUNGS: Clear to auscultation bilaterally without wheezes, rales or rhonchi. No dullness to percussion. No accessory muscle use. No retractions. SKIN: Normal. NEUROLOGICAL: Pupils are round, equal and react to light. The patient moves all extremities well and the gait is normal. EMERGENCY DEPARTMENT COURSE: I examined the patient. The patient is on a 2 narcotic injection per month treatment plan for their migraines. The patient was given 3 mg of Dilaudid IM, 60 mg of Toradol IM, 4 mg of Zofran ODT per their usual protocol. The differential diagnosis includes acute intracranial bleed, meningitis, encephalitis, mass or mass effect, sinusitis, infection, tumor, headache, temporal arteritis and carbon monoxide exposure, and migraine. The patient was discharged home in stable condition with female driving. In the evaluation and treatment of this patient, the following differential diagnoses were considered: Migraine Headache, Intracranial Hemorrhage, Subdural Hematoma, Subarachnoid Hemorrhage, Cerebral Aneurysm, Temporal/Giant Cell Arteritis, Tension Headache, Meningitis, Encephalitis, or Hydrocephalus. Problem List Medical Problems: (1) Abdominal pain Status: Resolved (2) Chronic sinusitis Status: Resolved (3) Headache Status: Resolved (4) Headache Status: Resolved (5) Headache Status: Resolved (6) IDIOPATHIC SCOLIOSIS Status: Chronic (7) Kidney stone Status: Resolved (8) Migraine Status: Resolved (9) Migraine Status: Resolved (10) Migraine Status: Resolved (11) Migraine Status: Resolved (12) Migraine Status: Resolved (13) Migraine Status: Resolved (14) Migraine headache Status: Resolved (15) Migraine headache Status: Resolved (16) Migraine headache Status: Resolved (17) Migraine headache Status: Resolved (18) MIGRAINE UNSPECIFIED W/O INTRACT MGRN W/O STATUS MIGRAINOSUS Status: Chronic (19) Shortness of breath Status: Resolved (20) TOBACCO USE DISORDER Status: Chronic Current/Historical Medications Scheduled Multiple Vitamins W/ Minerals (Centrum), 1 TAB PO DAILY Oxymorphone Hcl (Oxymorphone Hydrochloride), 10 MG PO BID Scheduled PRN Hydrocodone/Acetaminophen 5MG/325MG ([place] 5MG/325MG), 1 TABLET PO Q4H PRN for Neck/Headache Pain Allergies Coded Allergies: Meperidine (Verified Adverse Reaction, Unknown, ANXIETY, 07/06/16) Metoclopramide (Verified Adverse Reaction, Unknown, ANXIETY, 07/06/16) Vital Signs Date Time Temp Pulse Resp B/P Pulse Ox O2 Delivery O2 Flow Rate FiO2 07/06/16 09:44 70 16 132/90 100 07/06/16 09:02 36.5 70 16 132/90 100 Room Air Medications Administered Medications (Trade) Dose Ordered Sig/Babs Route Start Time Stop Time Status Last Admin Dose Admin Hydromorphone HCl (Dilaudid Inj) 3 mg NOW STAT IM 07/06/16 09:23 07/06/16 09:24 DC 07/06/16 09:34 3 MG Ketorolac Tromethamine (Toradol Inj) 60 mg NOW STAT IM 07/06/16 09:23 07/06/16 09:24 DC 07/06/16 09:34 60 MG Ondansetron HCl (Zofran Odt) 4 mg NOW STAT PO 07/06/16 09:23 07/06/16 09:24 DC 07/06/16 09:33 4 MG Departure Information Impression Primary Impression: Headache Dispostion Home / Self-Care Condition GOOD Referrals Santa Reese MD (PCP) Patient Instructions My [facility] Additional Instructions You have been treated in the Emergency Department for a Headache. You have received pain medicine in the emergency department which impairs your ability to operate a vehicle. It is illegal for you to drive after receiving these medicines. For pain control, you can use the following [id number] medicines (if >12 yo): - Regular strength (325mg/tab) Tylenol (acetaminophen) 2 tabs every 4-6 hours as needed. Do not exceed 12 tablets in a 24 hour period. Avoid taking more than 3 grams (3000 mg) of Tylenol per day. This includes any other sources of acetaminophen you may take on a regular basis. - Regular strength (200 mg/tab) Advil (ibuprofen) 1-2 tabs every 4-6 hours as needed. Do not exceed a dose of 3200 mg per day. You should relax in a quiet, dark place for the rest of the day. Avoid any possible triggers including: cigarette smoke, caffeine, nicotine, chocolate, wine, beer, loud noises or music, or bright lights. You should schedule a follow-up appointment in 2-3 days with your Primary Care Provider or established Neurologist for further evaluation and treatment of your Headache. Return to the Emergency Department if your current symptoms worsen despite treatment course outlined above, or if you develop any of the following symptoms : intractable pain despite aforementioned treatment course, visual disturbances , loss of vision, unilateral weakness or facial drooping, slurring of speech, loss of coordination, or loss of consciousness. Please return to emergency department for new/concerning symptoms.
[2016-07-06] MEDS ORDERED: HYDROmorphone INJ 1 MG/ML SYR IM STA (09:23)
[2016-07-06] MEDS ORDERED: ONDANSETRON 4MG OD TAB PO STA (09:23)
[2016-07-06] MEDS ORDERED: KETOROLAC TROMETHAMINE 60 MG/2 ML VIAL IM STA (09:23)
[2016-07-06 09:44] VITALS: BP 132/90; PULSE 70; O2SAT 100
== END 2016-07-06 09:45 | disposition home or self-care (01) ==
LOC: C.EDB 09:01
DX: R51 Headache (principal); Z87.442 Personal history of urinary calculi; Z87.898 Personal history of other specified conditions

== ENCOUNTER 2016-08-05 02:44 | Emergency (ER) | payer OTHER ==
[~2016-08-05] VITALS: Ht 175.3 cm; Wt 77.0 kg
[2016-08-05 02:49] VITALS: TEMP 36.5; Ht 175.3 cm; Wt 77.0 kg
[2016-08-05] MEDS ORDERED: KETOROLAC TROMETHAMINE 30 MG/ML VIAL IV STA (02:53)
[2016-08-05 03:02] LABS: BASO % 0.3 %; BASO ABS # 0.02 K/uL (0-0.2); COMPLETE YES; EOS % 1.9 %; HEMATOCRIT 38.5 % (42-52); IG% 0.1 %; LYMPH % 46.3 %; LYMPH ABS # 3.15 K/uL (1.2-3.4); MEAN CELL VOLUME 92.5 fL (80-100); MEAN CORPUSCULAR HEMOGLOBIN 30.5 pg (25-34); MEAN PLATELET VOLUME 9.9 fL (7.4-10.4); NEUT % 44.4 %; PLATELET COUNT 237 K/uL (130-400); RED BLOOD COUNT 4.16 M/uL (4.7-6.1); WHITE BLOOD COUNT 6.81 K/uL (4.8-10.8)
[2016-08-05 03:10] LABS: URINE APPEARANCE CLOUDY (CLEAR); URINE BILIRUBIN NEG (NEG); URINE COLOR ORANGE; URINE NITRITE NEG (NEG); URINE PH 5.5 (4.5-7.5); URINE SPECIFIC GRAVITY 1.019 (1.000-1.030); UROBILINOGEN NEG (NEG); ZZUR CULT IF INDIC CLEAN CATCH NO
[2016-08-05 03:14] LABS: MANUAL MICROSCOPIC REQUIRED? NO; REVIEW REQ? NO
[2016-08-05 03:23] LABS: BUN/CREATININE RATIO 12.2 (10-20); CALCIUM 8.3 mg/dl (8.5-10.1); POTASSIUM 3.4 mmol/L (3.5-5.1)
[2016-08-05] MEDS ORDERED: MoRPHine SULFATE 10 MG/ML CARP/VIAL IV STA (03:24)
[2016-08-05 03:25] LABS: ALB/GLOB RATIO 1.4 (0.9-2)
[2016-08-05] MEDS ORDERED: HYDROmorphone INJ 1 MG/ML SYR IV STA (03:59)
[2016-08-05] MEDS ORDERED: TAMS0.4C38 PO (04:04)
[2016-08-05] MEDS ORDERED: ONDA4TAB10 SL (04:04)
[2016-08-05] MEDS ORDERED: OXYC1TAB3 PO (04:04)
[2016-08-05 04:12] VITALS: BP 123/78; PULSE 55; O2SAT 98
--- NOTE | 2016-08-05 06:58 | DIAGNOSTIC IMAGING REPORT ---
CT SCAN OF THE ABDOMEN AND PELVIS WITHOUT CONTRAST CLINICAL HISTORY: left flank pain. hx of stones COMPARISON STUDY: 03/26/2016 TECHNIQUE: CT scan of the abdomen and pelvis was performed from the lung bases to the proximal femurs. Images are reviewed in the axial, sagittal, and coronal planes. IV contrast was not administered for this examination. CT DOSE: 420.18 mGy.cm FINDINGS: Lower chest: There are minimal dependent atelectatic changes. Liver: The unenhanced liver is normal in size, contour, and attenuation. There is no intrahepatic biliary ductal dilatation. Gallbladder: Unremarkable. Spleen: Normal in size and attenuation. Pancreas: Unremarkable. Adrenal glands: Unremarkable. Kidneys: There is a 2 mm nonobstructing upper pole right renal calculus. There is a 2 mm nonobstructing upper pole left renal calculus. There is left-sided hydronephrosis and hydroureter. There is a 2.5 mm calculus at the level of the left ureterovesical junction. Bowel: There are no transition zones indicate bowel obstruction. Borderline left colonic wall thickening is likely secondary to incomplete distention. There is no acute diverticulitis. There are no findings to indicate acute appendicitis. Peritoneum: There is no intraperitoneal free air or abdominal ascites. There is small fat-containing umbilical hernia. Vasculature: The abdominal aorta is normal in course and caliber. Adenopathy: None. Pelvic viscera: The bladder, and pelvic viscera are unremarkable. Skeletal structures: No destructive osseous lesions are seen. IMPRESSION: 1. Bilateral nephrolithiasis 2. 2.5 mm left UVJ calculus with secondary obstructive changes 3. No evidence of bowel obstruction. No evidence of free air. Electronically signed by: Troy Fraser M.D. 08/05/2016 6:57 AM Dictated Date/Time: 08/05/2016 6:54 AM
--- NOTE | 2016-08-05 23:54 | EMERGENCY ROOM VISIT NOTE ---
History First contact with patient: 02:49 Chief Complaint: FLANK PAIN Stated Complaint: BACK PAIN History of Present Illness The patient is a 36 year old male who presents to the Emergency Room with complaints of left-sided flank pain that began approximately one hour prior to arrival. The patient has a history of kidney stones in the past and does follow with urology. The patient states his discomfort feels identical to previous kidney stones. He has had some urinary frequency but no gross hematuria. No fever or chills. His pain does radiate into his left side groin. The patient rates his discomfort a colicky 9/10. He does arrive by ambulance and did have morphine and Zofran prehospital. This has improved his pain to a 6/10. Review of Systems More than 10 systems were reviewed and otherwise negative with the exception of history of present illness. Past Medical/Surgical History Medical Problems: (1) Abdominal pain (2) Chronic sinusitis (3) Headache (4) Headache (5) Headache (6) IDIOPATHIC SCOLIOSIS (7) Kidney stone (8) Migraine (9) Migraine (10) Migraine (11) Migraine (12) Migraine (13) Migraine (14) Migraine headache (15) Migraine headache (16) Migraine headache (17) Migraine headache (18) MIGRAINE UNSPECIFIED W/O INTRACT MGRN W/O STATUS MIGRAINOSUS (19) Shortness of breath (20) TOBACCO USE DISORDER Family History FHx: headache Kidney stones Social History Smoking Status: Never Smoker Alcohol Use: none Drug Use: none Marital Status: Housing Status: lives with family Occupation Status: unemployed Current/Historical Medications Scheduled Multiple Vitamins W/ Minerals (Centrum), 1 TAB PO DAILY Ondasetron Odt (Zofran Odt), 4 MG SL Q6H Oxycodone Immediate Rel Tab (Roxicodone Ir), 1-2 TAB PO Q6 Oxymorphone Hcl (Oxymorphone Hydrochloride), 10 MG PO BID Tamsulosin Hcl (Flomax), 0.4 MG PO DAILY Scheduled PRN Hydrocodone/Acetaminophen 5MG/325MG ([place] 5MG/325MG), 1 TABLET PO Q4H PRN for Neck/Headache Pain Allergies Coded Allergies: Meperidine (Verified Adverse Reaction, Unknown, ANXIETY, 08/05/16) Metoclopramide (Verified Adverse Reaction, Unknown, ANXIETY, 08/05/16) Physical Exam Vital Signs Date Time Temp Pulse Resp B/P (MAP) Pulse Ox O2 Delivery O2 Flow Rate FiO2 08/05/16 04:12 55 18 123/78 98 Room Air 08/05/16 02:49 36.5 67 18 148/88 100 Room Air Pain Rating (0-10): 7.0 Physical Exam VITALS: Vitals are noted on the nurse's note and reviewed by myself. Vital signs stable. GENERAL: Well-developed, well-nourished, white male, who is in moderate to severe discomfort on examination HEAD: Normocephalic atraumatic. HEART: Regular rate and rhythm without murmurs gallops or rubs. LUNGS: Clear to auscultation bilaterally without wheezes, rales or rhonchi. No retractions or accessory muscle use. ABDOMEN: Positive normal bowel sounds x 4. Soft, nontender, without masses or organomegaly. No guarding or rebound tenderness. No CVA tenderness. MUSCULOSKELETAL: No muscle atrophy, erythema, or edema noted. Full range of motion without joint tenderness in all extremities. Medical Decision & Procedures ER Provider Diagnostic Interpretation: CT SCAN OF THE ABDOMEN AND PELVIS WITHOUT CONTRAST CLINICAL HISTORY: left flank pain. hx of stones COMPARISON STUDY: 03/26/2016 TECHNIQUE: CT scan of the abdomen and pelvis was performed from the lung bases to the proximal femurs. Images are reviewed in the axial, sagittal, and coronal planes. IV contrast was not administered for this examination. CT DOSE: 420.18 mGy.cm FINDINGS: Lower chest: There are minimal dependent atelectatic changes. Liver: The unenhanced liver is normal in size, contour, and attenuation. There is no intrahepatic biliary ductal dilatation. Gallbladder: Unremarkable. Spleen: Normal in size and attenuation. Pancreas: Unremarkable. Adrenal glands: Unremarkable. Kidneys: There is a 2 mm nonobstructing upper pole right renal calculus. There is a 2 mm nonobstructing upper pole left renal calculus. There is left-sided hydronephrosis and hydroureter. There is a 2.5 mm calculus at the level of the left ureterovesical junction. Bowel: There are no transition zones indicate bowel obstruction. Borderline left colonic wall thickening is likely secondary to incomplete distention. There is no acute diverticulitis. There are no findings to indicate acute appendicitis. Peritoneum: There is no intraperitoneal free air or abdominal ascites. There is small fat-containing umbilical hernia. Vasculature: The abdominal aorta is normal in course and caliber. Adenopathy: None. Pelvic viscera: The bladder, and pelvic viscera are unremarkable. Skeletal structures: No destructive osseous lesions are seen. IMPRESSION: 1. Bilateral nephrolithiasis 2. 2.5 mm left UVJ calculus with secondary obstructive changes 3. No evidence of bowel obstruction. No evidence of free air. Laboratory Results 08/05/16 02:55 Red Blood Count 4.16, Mean Corpuscular Volume 92.5, Mean Corpuscular Hemoglobin 30.5, Mean Corpuscular Hemoglobin Concent 33.0, Mean Platelet Volume 9.9, Neutrophils (%) (Auto) 44.4, Lymphocytes (%) (Auto) 46.3, Monocytes (%) (Auto) 7.0, Eosinophils (%) (Auto) 1.9, Basophils (%) (Auto) 0.3, Neutrophils # (Auto) 3.02, Lymphocytes # (Auto) 3.15, Monocytes # (Auto) 0.48, Eosinophils # (Auto) 0.13, Basophils # (Auto) 0.02 08/05/16 02:55 Test 08/05/16 02:55 08/05/16 02:57 White Blood Count 6.81 K/uL (4.8-10.8) Red Blood Count 4.16 M/uL (4.7-6.1) Hemoglobin 12.7 g/dL (14.0-18.0) Hematocrit 38.5 % (42-52) Mean Corpuscular Volume 92.5 fL (80-100) Mean Corpuscular Hemoglobin 30.5 pg (25-34) Mean Corpuscular Hemoglobin Concent 33.0 g/dl (32-36) Platelet Count 237 K/uL (130-400) Mean Platelet Volume 9.9 fL (7.4-10.4) Neutrophils (%) (Auto) 44.4 % Lymphocytes (%) (Auto) 46.3 % Monocytes (%) (Auto) 7.0 % Eosinophils (%) (Auto) 1.9 % Basophils (%) (Auto) 0.3 % Neutrophils # (Auto) 3.02 K/uL (1.4-6.5) Lymphocytes # (Auto) 3.15 K/uL (1.2-3.4) Monocytes # (Auto) 0.48 K/uL (0.11-0.59) Eosinophils # (Auto) 0.13 K/uL (0-0.5) Basophils # (Auto) 0.02 K/uL (0-0.2) RDW Standard Deviation 41.8 fL (36.4-46.3) RDW Coefficient of Variation 12.3 % (11.5-14.5) Immature Granulocyte % (Auto) 0.1 % Immature Granulocyte # (Auto) 0.01 K/uL (0.00-0.02) Anion Gap 7.0 mmol/L (3-11) Est Creatinine Clear Calc Drug Dose 101.2 ml/min Estimated GFR () 110.9 Estimated GFR (Non- 95.7 BUN/Creatinine Ratio 12.2 (10-20) Calcium Level 8.3 mg/dl (8.5-10.1) Total Bilirubin 0.3 mg/dl (0.2-1) Aspartate Amino Transf (AST/SGOT) 11 U/L (15-37) Alanine Aminotransferase (ALT/SGPT) 16 U/L (12-78) Alkaline Phosphatase 58 U/L (45-117) Total Protein 6.8 gm/dl (6.4-8.2) Albumin 4.0 gm/dl (3.4-5.0) Globulin 2.8 gm/dl (2.5-4.0) Albumin/Globulin Ratio 1.4 (0.9-2) Lipase 219 U/L (73-393) Urine Color ORANGE Urine Appearance CLOUDY (CLEAR) Urine pH 5.5 (4.5-7.5) Urine Specific [place] 1.019 (1.000-1.030) Urine Protein NEG (NEG) Urine Glucose (UA) NEG (NEG) Urine Ketones NEG (NEG) Urine Occult Blood 3+ (NEG) Urine Nitrite NEG (NEG) Urine Bilirubin NEG (NEG) Urine Urobilinogen NEG (NEG) Urine Leukocyte Esterase TRACE (NEG) Urine WBC (Auto) 1-5 /hpf (0-5) Urine RBC (Auto) >30 /hpf (0-4) Urine Hyaline Casts (Auto) 0 /lpf (0-5) Urine Epithelial Cells (Auto) 5-10 /lpf (0-5) Urine Bacteria (Auto) NEG (NEG) Medications Administered Medications (Trade) Dose Ordered Sig/Babs Route Start Time Stop Time Status Last Admin Dose Admin Ketorolac Tromethamine (Toradol Inj) 30 mg NOW STAT IV 08/05/16 02:53 08/05/16 02:54 DC 08/05/16 03:00 30 MG Morphine Sulfate (MoRPHine SULFATE INJ) 6 mg NOW STAT IV 08/05/16 03:24 08/05/16 03:25 DC 08/05/16 03:28 6 MG Hydromorphone HCl (Dilaudid Inj) 1 mg NOW STAT IV 08/05/16 03:59 08/05/16 04:01 DC 08/05/16 04:13 1 MG ED Course Physical exam and history were performed. Nursing notes and EMR were reviewed. Patient appears to have left flank pain for the past few hours. The patient is well-known to the emergency department, and is typically seen for migraine headaches. He does have a history of kidney stones, and clinically his symptoms are concerning for this. IV access was established and labs were obtained. The patient was hydrated and medicated as above. His urine is with hematuria. CT scan of the abdomen and pelvis was performed. The patient's blood work is as above and was reviewed. He does not have a significantly elevated white blood cell count, gross anemia, bandemia, or significant electrolyte imbalance. Transaminases are nondiagnostic. Urine is without obvious signs of infection, and again is with blood. CT scan shows a distal left 2.5 mm stone which does clinically correlate with his symptoms. Overall the patient appears stable for discharge home. His symptoms are improved with analgesics and he does follow with urology. The patient will be given a course of oxycodone, Zofran, and Flomax. He is to call urology in the morning to arrange a follow-up. He was otherwise invited back to the ER with any new, worsening, or concerning symptoms. The chart was completed utilizing [employer] Speech Voice Recognition Software. Grammatical errors, random word insertions, pronoun errors, and incomplete sentences are an occasional consequence of this system due to software limitations, ambient noise, and hardware issues. Any formal questions or concerns about the content, text, or information contained within the body of this dictation should be directly addressed to the provider for clarification. . Medical Decision Differential diagnosis: Etiologies such as renal colic, appendicitis, diverticulitis, mesenteric ischemia, aortic pathology, infections, inflammatory bowel disease, PUD, biliary pathology, UTI, as well as others were entertained. Impression Primary Impression: Left ureteral calculus Departure Information Dispostion Home / Self-Care Condition GOOD Prescriptions Tamsulosin Hcl (FLOMAX) 0.4 Mg Cap 0.4 MG PO DAILY for 7 Days, #7 CAP Prov: Marcin King PA-C 08/05/16 Ondasetron Odt (ZOFRAN ODT) 4 Mg Tab 4 MG SL Q6H for Nausea, #12 TAB Prov: Marcin King PA-C 08/05/16 Oxycodone Immediate Rel Tab (ROXICODONE IR) 5 Mg Tab 1-2 TAB PO Q6 for Pain, #24 TAB Prov: Marcin King PA-C 08/05/16 Referrals Cirilo Saunders MD Forms HOME CARE DOCUMENTATION FORM, IMPORTANT VISIT INFORMATION Patient Instructions My [facility] Additional Instructions You were seen and evaluated today on an emergency basis only. This is not a substitute for, or an effort to provide, complete comprehensive medical care. It is not possible to recognize and treat all injuries or illnesses in a single emergency department visit. For this reason it is recommended that you followup with Urology by telephone in the morning to arrange appropriate follow-up. Let them know you were seen in the ER today and have a new kidney stone. For baseline pain relief you may alternate ibuprofen and acetaminophen every 4 hours for pain control. Take 600 mg ibuprofen (Advil) and then 4 hours later take 1000 mg acetaminophen (Tylenol). Do not take more than 3000 mg acetaminophen in a single day. Oxycodone (OxyIR) 5mg: Take ONE or TWO pills every SIX hours for breakthrough pain. Avoid alcohol, operating machinery or dangerous equipment, working on ladders or roofs, DRIVING, or situations where being under the influence may be dangerous. It is recommended to use an [id number] stool softener such as Colace, 100mg twice daily while taking this medication to avoid constipation. Take Flomax once daily Zofran 1 tablet every 6 hrs as needed for nausea. You are welcome to return to the emergency department anytime with new, worsening, or concerning symptoms.
== END 2016-08-05 04:29 | disposition home or self-care (01) ==
LOC: C.EDB 02:44 → EDBD 02:44 → C.EDB 04:29
DX: N13.2 Hydronephrosis with renal and ureteral calculous obstruction (principal); Z87.891 Personal history of nicotine dependence; Z79.899 Other long term (current) drug therapy

== ENCOUNTER 2016-08-09 19:36 | Emergency (ER) | payer OTHER ==
[~2016-08-09] VITALS: Ht 180.3 cm; Wt 75.6 kg
[~2016-08-09 19:36] MED LIST changes: -HYDR-3419 PO; +ONDA4TAB10 SL; +OXYC1TAB3 PO; -OXYM1TAB24 PO; +TAMS0.4C38 PO
[2016-08-09 19:37] VITALS: TEMP 36.6; Ht 180.3 cm; Wt 75.6 kg
[2016-08-09] MEDS ORDERED: ONDA4TAB10 SL (20:22)
[2016-08-09] MEDS ORDERED: ONDANSETRON 4MG OD TAB PO STA (20:53)
[2016-08-09] MEDS ORDERED: HYDROmorphone HCL 4 MG/ML SYR IM STA (20:53)
[2016-08-09] MEDS ORDERED: KETOROLAC TROMETHAMINE 60 MG/2 ML VIAL IM STA (20:53)
--- NOTE | 2016-08-09 21:10 | EMERGENCY ROOM VISIT NOTE ---
History Report prepared by Raquel: Hieu Bautista Under the Supervision of: Dr. Luciano Small D.O. First contact with patient: 20:47 Chief Complaint: HEAD PAIN Stated Complaint: MIGRAINE History of Present Illness The patient is a 36 year old male who presents to the Emergency Room with complaints of a persistent migraine that began at 1230 today, 8.5 hours prior to arrival. The patient is also currently complaining of nausea, but has not vomited yet. He states that he has a history of migraines and commonly experiences associated nausea and vomiting. He denies that this headache is unusual in anyway, and has had them at baseline for nearly his whole life. His last episode was only one week ago. The patient has followed with pain management in the past for his headache. 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 A total of 10 systems reviewed and were otherwise negative. Past Medical & Surgical Medical Problems: (1) Abdominal pain (2) Chronic sinusitis (3) Headache (4) Headache (5) Headache (6) IDIOPATHIC SCOLIOSIS (7) Kidney stone (8) Migraine (9) Migraine (10) Migraine (11) Migraine (12) Migraine (13) Migraine (14) Migraine headache (15) Migraine headache (16) Migraine headache (17) Migraine headache (18) MIGRAINE UNSPECIFIED W/O INTRACT MGRN W/O STATUS MIGRAINOSUS (19) Shortness of breath (20) TOBACCO USE DISORDER Family History FHx: headache Kidney stones Social History Smoking Status: Never Smoker Alcohol Use: none Drug Use: none Marital Status: Housing Status: lives with family Occupation Status: unemployed Current/Historical Medications Scheduled Multiple Vitamins W/ Minerals (Centrum), 1 TAB PO DAILY Scheduled PRN Hydrocodone/Acetaminophen 5MG/325MG ([place] 5MG/325MG), 1 TABLET PO Q4H PRN for Neck/Headache Pain Ondasetron Odt (Zofran Odt), 4 MG SL Q6H PRN for Nausea Oxymorphone Hcl (Oxymorphone Hydrochloride), 10 MG PO BID PRN for Pain Allergies Coded Allergies: Meperidine (Verified Adverse Reaction, Unknown, ANXIETY, 08/05/16) Metoclopramide (Verified Adverse Reaction, Unknown, ANXIETY, 08/05/16) Physical Exam Vital Signs Date Time Temp Pulse Resp B/P (MAP) Pulse Ox O2 Delivery O2 Flow Rate FiO2 08/09/16 21:50 62 16 133/84 98 Room Air 08/09/16 19:37 36.6 65 18 120/78 96 Room Air Physical Exam GENERAL: Patient is awake, alert, and in no acute distress. Patient is resting comfortably and showing no signs of anxiety EYES: The conjunctivae are clear. The pupils are round and reactive. EARS, NOSE, MOUTH AND THROAT: The nose is without any evidence of any deformity. Mucous membranes are moist tongue is midline NECK: The neck is nontender and supple. RESPIRATORY: Normal respiratory effort is noted there is no evidence of wheezing rhonchi or rales CARDIOVASCULAR: Regular rate and rhythm noted there no murmurs rubs or gallops normal S1 normal S2 GASTROINTESTINAL: The abdomen is soft. Bowel sounds are present in all quadrants. Abdomen is nontender MUSCULOSKELETAL/EXTREMITIES: There is no evidence of gross deformity full range of motion is noted in the hips and shoulders SKIN: There is no obvious evidence of any rash. There are no petechiae, pallor or cyanosis noted. NEUROLOGIC: Patient is awake alert and oriented x3 strength is symmetric patellar reflexes are 2+ bilaterally Medical Decision & Procedures Medications Administered Medications (Trade) Dose Ordered Sig/Babs Route Start Time Stop Time Status Last Admin Dose Admin Hydromorphone HCl (Dilaudid Inj) 3 mg NOW STAT IM 08/09/16 20:53 08/09/16 20:55 DC 08/09/16 21:04 3 MG Ondansetron HCl (Zofran Odt) 4 mg NOW STAT PO 08/09/16 20:53 08/09/16 20:55 DC 08/09/16 21:04 4 MG Ketorolac Tromethamine (Toradol Inj) 60 mg NOW STAT IM 08/09/16 20:53 08/09/16 20:55 DC 08/09/16 21:04 60 MG ED Course 2050: The patient was evaluated in room B4. A complete history and physical examination were performed. 2052: Ordered Toradol 60 mg IM, Zofran 4 mg PO, Dilaudid 3 mg IM. 2149: Upon reevaluation, the patient is resting in bed and is improved. I discussed the results and treatment plan with him. He verbalized agreement of the treatment plan. The patient was discharged home. Medical Decision Differential diagnosis: Etiologies such as migraine headache, meningitis, sinusitis, CO exposure, ICH, SAH, infection, tumor, headache, sinus thrombosis, arterial dissection, as well as others were entertained. Nursing notes reviewed. Patient's previous electronic medical records. The patient is a 36-year-old male who presented to the emergency department for evaluation of headache. The patient has a history of chronic headache and feels that this is similar to his previous headaches in the past. The patient was given medications that he received in the past. He had good resolution of his symptoms. He did not have any meningismus or fever. He had no focal neurologic deficit. He was encouraged to continue all medications as prescribed and follow- up with his primary care physician for further evaluation. He was also encouraged to return to the emergency department immediately if symptoms change worsen or the need arises. Impression Primary Impression: Chronic headache Scribe Attestation The scribe's documentation has been prepared under my direction and personally reviewed by me in its entirety. I confirm that the note above accurately reflects all work, treatment, procedures, and medical decision making performed by me. Departure Information Dispostion Home / Self-Care Referrals Santa Reese MD (PCP) Forms HOME CARE DOCUMENTATION FORM, IMPORTANT VISIT INFORMATION, WORK / SCHOOL INSTRUCTIONS Patient Instructions My [facility] Additional Instructions Continue all medications as prescribed. Rest and avoid any strenuous activity. Follow-up with your family doctor as scheduled. Problem Qualifiers Primary Impression: Chronic headache Headache type: unspecified Intractability: not intractable Qualified Codes : R51 - Headache
[2016-08-09] MEDS ORDERED: OXYM1TAB37 PO (21:16)
[2016-08-09] MEDS ORDERED: HYDR-5688 PO (21:16)
[2016-08-09] MEDS ORDERED: MULTTAB5 PO (21:33)
[2016-08-09 21:50] VITALS: BP 133/84; PULSE 62; O2SAT 98
== END 2016-08-09 21:50 | disposition home or self-care (01) ==
LOC: C.EDB 19:37
DX: R51 Headache (principal); Z72.0 Tobacco use; Z84.1 Family history of disorders of kidney and ureter

== ENCOUNTER 2016-08-17 12:26 | Emergency (ER) | payer OTHER ==
[~2016-08-17] VITALS: Ht 180.3 cm; Wt 73.0 kg
[~2016-08-17 12:26] MED LIST changes: +HYDR-5688 PO; +MULTTAB5 PO; -OXYC1TAB3 PO; +OXYM1TAB37 PO; -TAMS0.4C38 PO
[2016-08-17 12:30] VITALS: TEMP 36.9; Ht 180.3 cm; Wt 73.0 kg
[2016-08-17] MEDS ORDERED: POTA99TA PO (12:37)
[2016-08-17] MEDS ORDERED: KETOROLAC TROMETHAMINE 60 MG/2 ML VIAL IM STA (12:50)
[2016-08-17] MEDS ORDERED: ONDANSETRON 4MG OD TAB PO STA (12:50)
[2016-08-17] MEDS ORDERED: HYDROmorphone HCL 4 MG/ML SYR IM STA (12:50)
[2016-08-17] MEDS ORDERED: HYDROmorphone INJ 1 MG/ML SYR ONE (13:09)
[2016-08-17] MEDS ORDERED: HYDROmorphone INJ 2 MG/ML SYR/VIAL ONE (13:10)
[2016-08-17 13:37] VITALS: BP 119/72; PULSE 67; O2SAT 98
--- NOTE | 2016-08-18 16:15 | EMERGENCY ROOM VISIT NOTE ---
ED Visit Note First contact with patient: 12:32 CHIEF COMPLAINT: Migraine headache HISTORY OF PRESENT ILLNESS: Mr. Anders is a 36 year-old white male who ambulates into the ED accompanied by family members complaining of a migraine headache. He reports a gradual onset of a severe migraine headache that started approximately 6 hours ago. The pain is constant and it is slowly increasing in severity. This is not the worst headache of the life and is similar to previous migraines. Currently he describes the headache as a throbbing sensation/pain that starts at the base of the skull and radiates throughout the head with prominence on the left temporoparietal area. He rates the pain a 9/10. The pain is nonradiating. He has not identified any aggravating or alleviating factors related to the pain. He has not taken any medications for pain prior to arrival at the hospital. There is been associated light sensitivity and nausea without vomiting. He denies fever, chills, sweats, skin eruptions, skin color changes, recent head trauma, dizziness, lightheadedness, abnormal neurological symptoms, upper respiratory tract symptoms/infections, neck pain/stiffness, chest pain, shortness of breath, abdominal pain. REVIEW OF SYSTEMS: As noted above in History of Present Illness; all body systems were reviewed with the patient and found to be negative unless noted above otherwise. PAST MEDICAL HISTORY: Chronic sinusitis, nephrolithiasis, radiographic scoliosis. CURRENT MEDICATIONS: Medications Dose Route/Sig Max Daily Dose Days Date Category Potassium 99 Mg Tab 99 Mg PO QAM 08/17/16 Reported Zofran Odt (Ondansetron HCl) 4 Mg Tab 4 Mg SL Q6H PRN 08/09/16 Reported [place] 5MG/325MG (Acetaminophen/Hydrocodone Bitart) Tab 1 Tablet PO Q4H PRN 06/28/16 Reported Oxymorphone Hydrochloride (Oxymorphone Hcl) 10 Mg Tab 10 Mg PO BID PRN 06/28/16 Reported Centrum (Multiple Vitamins W/ Minerals) 1 Tab Tab 1 Tab PO DAILY 11/15/13 Reported ALLERGIES TO MEDICATIONS: Meperidine, metoclopramide. SOCIAL HISTORY: Patient is not employed; he is with family and feels safe in his home environment; he denies tobacco and alcohol use. PHYSICAL EXAM: Vital Signs: Date Time Temp Pulse Resp B/P (MAP) Pulse Ox O2 Delivery O2 Flow Rate FiO2 08/17/16 13:37 67 20 119/72 98 08/17/16 12:30 36.9 66 16 126/67 98 Room Air GENERAL: 36 year-old white male in moderate distress due to pain, afebrile and hemodynamically stable. Found lying in a darkened room. NEUROLOGIC: Awake, alert and oriented to person place and time. Answering questions appropriately and following commands. Cranial nerves II-XII grossly intact. No focal neurologic deficits noted. Good hand eye coordination. Good short-term and long-term recall. Normal gait. SKIN: Warm, dry and pink. No rashes, lesions or soft tissue trauma noted. HEENT: Normocephalic, atraumatic. PERRLA. EOMI without nystagmus. Funduscopic examination was deferred due to light sensitivity. Sclera anicteric. External ears are nontender, auditory canals are pink and patent, tympanic membranes are pearly rodriguez with normal light reflex. No intraoral trauma or infections noted. No nasal drainage or audible congestion. No JVD. Trachea midline. BACK: No tenderness over the bony cervical, thoracic or lumbar spine. No tenderness throughout the paraspinous muscles in the cervical and thoracic spine region. Full range of motion of the cervical spine. No CVA tenderness. THORAX: Lungs clear to auscultation and equal bilaterally with no wheezing, crackles, rhonchi or stridor and equal chest wall movements. HEART: Regular rate and rhythm with no murmurs, rubs or gallops. ABDOMEN: Soft and nontender with bowel sounds present in all quadrants; no rigidity, rebound tenderness, organomegaly or guarding. EXTREMITIES: Moves all extremities well on command and with purpose. Distal neurovascular statuses are intact and equal bilaterally. ED COURSE: Patient is assessed with history and physical examination. Patient was given 3 mg of the Dilaudid IM, 60 mg of Toradol IM and 4 mg of Zofran ODT for the pain and nausea. Patient was reassessed. Patient was educated about his condition and instructed on his treatment plan; he verbalized understanding and agreement with this plan. CLINICAL IMPRESSION: Migraine headache. DECISION MAKIN-year-old male who presents for evaluation of headache. He is afebrile, well appearing, and hemodynamically stable. He has no signs of a sinus, dental, or ear infection and no evidence of meningismus. He is neurologically intact. I do not suspect a headache to be secondary to a subarachnoid hemorrhage, meningitis, encephalitis, or intracranial mass lesion. DISPOSITION: Patient was discharged to home in stable condition accompanied by by his and daughter; prior to departure he was reassessed and subjectively reported he was feeling better and rated his discomfort 10. PLAN: DISCHARGE INSTRUCTIONS: Rest at home, in a quiet darkened room and allow the medication to work for the pain. Continue to follow up current treatment plan prescribed by your physician for your migraine headaches. See your own doctor in follow-up this week for continued care and treatment. Return to the emergency department as needed worsening/uncontrolled pain, fevers , abnormal neurological symptoms, in accordance with his pain management plan, or any new/concerning symptoms.
== END 2016-08-17 13:38 | disposition home or self-care (01) ==
LOC: C.EDB 12:27 → C.EDD 13:38
DX: G43.909 Migraine, unspecified, not intractable, without status migrainosus (principal); J32.9 Chronic sinusitis, unspecified; N20.0 Calculus of kidney; M41.9 Scoliosis, unspecified

== ENCOUNTER 2016-09-01 12:41 | Emergency (ER) | payer OTHER ==
[~2016-09-01] VITALS: Ht 180.3 cm; Wt 72.0 kg
[~2016-09-01 12:41] MED LIST changes: +POTA99TA PO
[2016-09-01 12:48] VITALS: TEMP 36.7; Ht 180.3 cm; Wt 72.0 kg
[2016-09-01] MEDS ORDERED: ONDANSETRON 4MG OD TAB PO STA (13:37)
[2016-09-01] MEDS ORDERED: KETOROLAC TROMETHAMINE 60 MG/2 ML VIAL IM STA (13:37)
[2016-09-01] MEDS ORDERED: HYDROmorphone INJ 2 MG/ML SYR/VIAL IM STA (13:37)
[2016-09-01 14:22] VITALS: BP 112/68; PULSE 68; O2SAT 100
--- NOTE | 2016-09-01 20:31 | EMERGENCY ROOM VISIT NOTE ---
ED Visit Note First contact with patient: 13:03 CHIEF COMPLAINT: Migraine headache HISTORY OF PRESENT ILLNESS: Mr. Anders is a 36 year-old white male who ambulates into the ED accompanied by his and child complaining of a migraine headache. He reports a gradual onset of a severe migraine headache that started approximately 3 hours ago. The pain is constant and it is slowly increasing in severity. This is not the worst headache of the life and is similar to previous migraines. Currently he describes the headache as a throbbing sensation/pain that starts at the base of the skull and radiates throughout the head with prominence on the left temporoparietal area. He rates the pain a 9/10. The pain is nonradiating. He has not identified any aggravating or alleviating factors related to the pain. He has not taken any medications for pain prior to arrival at the hospital. There is been associated light sensitivity and nausea without vomiting. He denies fever, chills, sweats, skin eruptions, skin color changes, recent head trauma, dizziness, lightheadedness, abnormal neurological symptoms, upper respiratory tract symptoms/infections, neck pain/stiffness, chest pain, shortness of breath, abdominal pain. REVIEW OF SYSTEMS: As noted above in History of Present Illness; all body systems were reviewed with the patient and found to be negative unless noted above otherwise. PAST MEDICAL HISTORY: Chronic sinusitis, nephrolithiasis, radiographic scoliosis. CURRENT MEDICATIONS: Medications Dose Route/Sig Max Daily Dose Days Date Category Potassium 99 Mg Tab 99 Mg PO QAM 08/17/16 Reported Zofran Odt (Ondansetron HCl) 4 Mg Tab 4 Mg SL Q6H PRN 08/09/16 Reported [place] 5MG/325MG (Acetaminophen/Hydrocodone Bitart) Tab 1 Tablet PO Q4H PRN 06/28/16 Reported Oxymorphone Hydrochloride (Oxymorphone Hcl) 10 Mg Tab 10 Mg PO BID PRN 06/28/16 Reported Centrum (Multiple Vitamins W/ Minerals) 1 Tab Tab 1 Tab PO DAILY 11/15/13 Reported ALLERGIES TO MEDICATIONS: Meperidine, metoclopramide. SOCIAL HISTORY: Patient is not employed; he is with family and feels safe in his home environment; he denies tobacco and alcohol use. PHYSICAL EXAM: Vital Signs: Date Time Temp Pulse Resp B/P (MAP) Pulse Ox O2 Delivery O2 Flow Rate FiO2 7/2/17 14:22 68 16 112/68 100 09/01/16 12:48 36.7 73 16 115/70 100 Room Air GENERAL: 36 year-old white male in moderate distress due to pain, afebrile and hemodynamically stable. Found lying in a darkened room with . NEUROLOGIC: Awake, alert and oriented to person place and time. Answering questions appropriately and following commands. Cranial nerves II-XII grossly intact. No focal neurologic deficits noted. Good hand eye coordination. Good short-term and long-term recall. Normal gait. SKIN: Warm, dry and pink. No rashes, lesions or soft tissue trauma noted. HEENT: Normocephalic, atraumatic. PERRLA. EOMI without nystagmus. Funduscopic examination was deferred due to light sensitivity. Sclera anicteric. External ears are nontender, auditory canals are pink and patent, tympanic membranes are pearly rodriguez with normal light reflex. No intraoral trauma or infections noted. No nasal drainage or audible congestion. No JVD. Trachea midline. BACK: No tenderness over the bony cervical, thoracic or lumbar spine. No tenderness throughout the paraspinous muscles in the cervical and thoracic spine region. Full range of motion of the cervical spine. No CVA tenderness. THORAX: Lungs clear to auscultation and equal bilaterally with no wheezing, crackles, rhonchi or stridor and equal chest wall movements. HEART: Regular rate and rhythm with no murmurs, rubs or gallops. ABDOMEN: Soft and nontender with bowel sounds present in all quadrants; no rigidity, rebound tenderness, organomegaly or guarding. EXTREMITIES: Moves all extremities well on command and with purpose. Distal neurovascular statuses are intact and equal bilaterally. ED COURSE: Patient is assessed with history and physical examination. Patient was given 3 mg of the Dilaudid IM, 60 mg of Toradol IM and 4 mg of Zofran ODT for the pain and nausea. Patient was reassessed. Patient was educated about his condition and instructed on his treatment plan; he verbalized understanding and agreement with this plan. CLINICAL IMPRESSION: Migraine headache. DECISION MAKIN-year-old male who presents for evaluation of headache. He is afebrile, well appearing, and hemodynamically stable. He has no signs of a sinus, dental, or ear infection and no evidence of meningismus. He is neurologically intact. I do not suspect a headache to be secondary to a subarachnoid hemorrhage, meningitis, encephalitis, or intracranial mass lesion. DISPOSITION: Patient was discharged to home in stable condition accompanied by by his family; prior to departure he was reassessed and subjectively reported he was feeling better and rated his discomfort 5/10. PLAN: Rest at home, in a quiet darkened room and allow the medication to work for the pain. Continue to follow up current treatment plan prescribed by your physician for your migraine headaches. See your own doctor in follow-up this week for continued care and treatment. Return to the emergency department as needed worsening/uncontrolled pain, fevers , abnormal neurological symptoms, in accordance with his pain management plan, or any new/concerning symptoms.
== END 2016-09-01 14:24 | disposition home or self-care (01) ==
LOC: C.EDB 12:42 → C.EDD 14:24
DX: G43.909 Migraine, unspecified, not intractable, without status migrainosus (principal)

== ENCOUNTER 2016-09-11 06:55 | Emergency (ER) | payer OTHER ==
[~2016-09-11] VITALS: Ht 180.3 cm; Wt 73.0 kg
[2016-09-11 07:04] VITALS: TEMP 36.6; O2SAT 95; Ht 180.3 cm; Wt 73.0 kg
[2016-09-11] MEDS ORDERED: HYDROmorphone HCL 4 MG/ML SYR IM STA (07:14)
[2016-09-11] MEDS ORDERED: ONDANSETRON 4MG OD TAB PO STA (07:14)
[2016-09-11] MEDS ORDERED: KETOROLAC TROMETHAMINE 60 MG/2 ML VIAL IM STA (07:14)
--- NOTE | 2016-09-11 07:18 | EMERGENCY ROOM VISIT NOTE ---
History Report prepared by Raquel: Alexey Sheth Under the Supervision of: Dr. Rodriguez Gonzalez M.D. First contact with patient: 07:02 Chief Complaint: HEADACHE Stated Complaint: MIGRAINE AND NECK PAIN History of Present Illness The patient is a 36 year old male who presents to the Emergency Room with complaints of a constant headache that started at 0230 this morning. He rates his pain as a 9/10 in severity and reports that the pain is worse in the left side of his head. He reports that his pain is worsened with light, but denies any noise sensitivity. The patient states that he has a history of migraines and admits that his symptoms feel similar to his previous migraines. The patient states that he usually experiences nausea and eye pain with his migraines. He reports that he usually can relieve his nausea by eating. The patient states that he has not eaten any food since last evening, but denies any current nausea with this headache. He also reports that he has a history of a retina issue, which he has not been diagnosed for. The patient states that he follows up with his headaches with an registration specialist and Dr. Ram of [facility]. The patient denies weakness, numbness, abdominal pain, nausea, chest pain, glaucoma, and any current medications. Source of History: patient Onset: 0230 Position: head Symptom Intensity: 9/10 Timing: constant Modifying Factors (Worsening): other (light) Associated Symptoms: No fevers, No chest pain, No nausea, No abdominal pain , No weakness, No numbness Review of Systems See HPI for pertinent positives & negatives. A total of 10 systems reviewed and were otherwise negative. Past Medical & Surgical Medical Problems: (1) Abdominal pain (2) Chronic sinusitis (3) Headache (4) Headache (5) Headache (6) IDIOPATHIC SCOLIOSIS (7) Kidney stone (8) Migraine (9) Migraine (10) Migraine (11) Migraine (12) Migraine (13) Migraine (14) Migraine headache (15) Migraine headache (16) Migraine headache (17) Migraine headache (18) MIGRAINE UNSPECIFIED W/O INTRACT MGRN W/O STATUS MIGRAINOSUS (19) Shortness of breath (20) TOBACCO USE DISORDER Old medical records were reviewed. Nurse's notes were reviewed and I agree with. Frequent visits for headaches to the emergency department Family History FHx: headache Kidney stones Social History Smoking Status: Never Smoker Alcohol Use: none Drug Use: none Marital Status: Housing Status: lives with family Occupation Status: unemployed Current/Historical Medications Scheduled Multiple Vitamins W/ Minerals (Centrum), 1 TAB PO DAILY Potassium (Potassium), 99 MG PO QAM Scheduled PRN Hydrocodone/Acetaminophen 5MG/325MG ([place] 5MG/325MG), 1 TABLET PO Q4H PRN for Neck/Headache Pain Ondasetron Odt (Zofran Odt), 4 MG SL Q6H PRN for Nausea Oxymorphone Hcl (Oxymorphone Hydrochloride), 10 MG PO BID PRN for Pain Allergies Coded Allergies: Meperidine (Verified Adverse Reaction, Unknown, ANXIETY, 09/11/16) Metoclopramide (Verified Adverse Reaction, Unknown, ANXIETY, 09/11/16) Physical Exam Vital Signs Date Time Temp Pulse Resp B/P (MAP) Pulse Ox O2 Delivery O2 Flow Rate FiO2 09/11/16 07:41 72 16 120/71 09/11/16 07:04 36.6 63 18 119/73 95 Room Air Physical Exam General: Well developed well nourished young male complaining of a headache. resting comfortably in a dark room. in no acute distress, breathing comfortably on room air. Normal speech HEENT: Normal cephalic atraumatic. Pupils are equal round and reactive to light. Extraocular movements are intact. Oropharynx is pink with moist mucous membranes. No swelling of the mouth lips or tongue. Neck: Supple with a midline trachea. No meningeal signs or stiffness, no JVD or bruits. No Stridor. Chest: Clear to auscultation bilaterally. No wheezes or rhonchi. No increased work of breathing. Heart: regular rate and rhythm. Abdomen: Soft nontender, nondistended without rebound guarding or rigidity. Extremities: No cyanosis clubbing or edema. No calf tenderness or assymetry Spine/Back. Non tender to palpation. No CVA tenderness Skin: Good turgor without rashes. Neurologic exam: No tremor. Finger to nose intact. Cranial nerves two through 12 are intact. Motor and sensation are intact and symmetrical throughout. Medical Decision & Procedures Medications Administered Medications (Trade) Dose Ordered Sig/Babs Route Start Time Stop Time Status Last Admin Dose Admin Ketorolac Tromethamine (Toradol Inj) 60 mg NOW STAT IM 09/11/16 07:14 7/12/17 07:16 DC 09/11/16 07:39 60 MG Ondansetron HCl (Zofran Odt) 4 mg NOW STAT PO 09/11/16 07:14 09/11/16 07:16 DC 09/11/16 07:40 4 MG Hydromorphone HCl (Dilaudid Inj) 2 mg STK-MED ONCE .ROUTE 09/11/16 07:26 09/11/16 07:27 DC 09/11/16 07:40 2 MG Hydromorphone HCl (Dilaudid Inj) 1 mg STK-MED ONCE .ROUTE 09/11/16 07:26 09/11/16 07:27 DC 09/11/16 07:40 1 MG ED Course 0706: Past medical records reviewed. The patient was evaluated in room B02, and a complete history and physical examination were performed. 0714: Zofran Odt 4 mg PO, Dilaudid Injection 3 mg IM, Toradol Injection 60 mg IM. 0726: Dilaudid Injection 1 mg, Dilaudid Injection 2 mg. 0744: Upon reevaluation, the patient is resting comfortably. I discussed the results and treatment plan with the patient. He verbalized agreement of the treatment plan. The patient was discharged home. Medical Decision Differentials include, but are not limited to; migraine, CVA, aneurysm, intracranial process, trauma. Medication Reconciliation: I attest that I have personally reviewed the patient' s current medication list. Blood pressure Screening: Patient was found to have normal blood pressure on screening and does not require follow-up. This patient comes in as described above. He is having headache which is consistent with his previous headaches. He has frequent visits to the emergency department for similar symptoms is no different than his typical headache. This is his second shot this month. He has a normal neurologic exam. He has nothing to suggest meningitis or encephalitis or trauma or CVA or toxicologic process. His is at the bedside and driving. I did given Dilaudid 3 mg IM, Toradol 60 mg IM, Zofran 4 mg orally. There is her his typical dosing regimen. He will be discharged home. He was encouraged to return if: Headaches different than normal, fever chills, worsening symptoms, any new problems or concerns. Impression Primary Impression: Migraine Scribe Attestation The scribe's documentation has been prepared under my direction and personally reviewed by me in its entirety. I confirm that the note above accurately reflects all work, treatment, procedures, and medical decision making performed by me. Departure Information Dispostion Home / Self-Care Referrals Santa Reese MD (PCP) Forms HOME CARE DOCUMENTATION FORM, IMPORTANT VISIT INFORMATION Patient Instructions My [facility] Additional Instructions Rest Drink plenty of fluids REturn if: Worsening of symptoms, headaches different than typical, fever or chills, any new problems concerns Follow-up with your doctor this week for recheck
[2016-09-11] MEDS ORDERED: HYDROmorphone INJ 1 MG/ML SYR ONE (07:26)
[2016-09-11] MEDS ORDERED: HYDROmorphone INJ 2 MG/ML SYR/VIAL ONE (07:26)
[2016-09-11 07:41] VITALS: BP 120/71; PULSE 72
== END 2016-09-11 07:41 | disposition home or self-care (01) ==
LOC: C.EDB 06:56
DX: G43.909 Migraine, unspecified, not intractable, without status migrainosus (principal); Z84.1 Family history of disorders of kidney and ureter

== ENCOUNTER 2016-10-04 11:00 | Emergency (ER) | payer OTHER ==
[~2016-10-04] VITALS: Ht 175.3 cm; Wt 71.2 kg
[2016-10-04 11:03] VITALS: TEMP 36.5; Ht 175.3 cm; Wt 71.2 kg
[2016-10-04] MEDS ORDERED: KETOROLAC TROMETHAMINE 60 MG/2 ML VIAL IM STA (11:25)
[2016-10-04] MEDS ORDERED: HYDROmorphone INJ 2 MG/ML SYR/VIAL IM STA (11:25)
[2016-10-04] MEDS ORDERED: ONDANSETRON 4MG OD TAB PO STA (11:25)
[2016-10-04] MEDS ORDERED: AMOX1TAB43 PO (11:30)
--- NOTE | 2016-10-04 11:30 | EMERGENCY ROOM VISIT NOTE ---
ED Visit Note First contact with patient: 11:17 CHIEF COMPLAINT: Migraine headache HISTORY OF PRESENT ILLNESS: This 36-year-old male patient presented to the emergency department with a gradual onset of a severe generalized headache that started morning. There has been associated photophobia, phonophobia, nausea and vomiting. The patient denies fever or chills recently, and there is no weakness or numbness of the extremities. There is no difficulty with speech or vision. No trauma to the head and no neck pain. The pain is severe, constant, and it is slowly increasing in severity. The patient rates the pain as sharp and 9/10. The patient has taken his usual medications. This is not the worst headache of the life and is similar to previous migraines. Previous imaging studies of the brain (CT scans) have been normal. REVIEW OF SYSTEMS: An 8 system review of systems was completed with positives and pertinent negatives listed in the HPI. ALLERGIES: Metoclopramide, meperidine MEDICATIONS: See nursing notes PMH: Unchanged from previous SOCIAL HISTORY: The patient lives locally with family. He does not smoke PHYSICAL EXAM: Vital Signs: Reviewed Nurse's notes, vital signs stable. MENTAL STATUS: Alert, oriented, and coherent. In great distress from the headache. NECK : Supple, no nuchal rigidity, nontender, no lymphadenopathy. HEART: Regular rhythm and normal rate without murmurs, ectopy, gallops, or rubs. SKIN: Normal. NEUROLOGICAL: Pupils are round, equal and react to light. The optic fundi are normal and the discs are flat. EOMs are full and there is no nystagmus. The patient moves all extremities well and the gait is normal. EMERGENCY DEPARTMENT COURSE: I examined the patient. The patient was given 3 mg IM Dilaudid, 60 mg IM Toradol and 4 mg oral Zofran with relief of their pain. The differential diagnosis includes acute intracranial bleed, meningitis , encephalitis, mass or mass effect, sinusitis, infection, tumor, headache, temporal arteritis and carbon monoxide exposure, and migraine. The patient was discharged home in stable condition with his driving. DIAGNOSIS: Migraine headache DISCHARGE INSTRUCTIONS & TREATMENT: Rest at home, resume prescription medications. See your own doctor in follow-up. Problem List Medical Problems: (1) Abdominal pain Status: Resolved (2) Chronic sinusitis Status: Resolved (3) Headache Status: Resolved (4) Headache Status: Resolved (5) Headache Status: Resolved (6) IDIOPATHIC SCOLIOSIS Status: Chronic (7) Kidney stone Status: Resolved (8) Migraine Status: Resolved (9) Migraine Status: Resolved (10) Migraine Status: Resolved (11) Migraine Status: Resolved (12) Migraine Status: Resolved (13) Migraine Status: Resolved (14) Migraine headache Status: Resolved (15) Migraine headache Status: Resolved (16) Migraine headache Status: Resolved (17) Migraine headache Status: Resolved (18) MIGRAINE UNSPECIFIED W/O INTRACT MGRN W/O STATUS MIGRAINOSUS Status: Chronic (19) Shortness of breath Status: Resolved (20) TOBACCO USE DISORDER Status: Chronic Current/Historical Medications Scheduled Amoxicillin & Pot Clavulanate (Amoxicillin/Clavulanate P), 1 TAB PO BID Multiple Vitamins W/ Minerals (Centrum), 1 TAB PO DAILY Potassium (Potassium), 99 MG PO QAM Scheduled PRN Hydrocodone/Acetaminophen 5MG/325MG ([place] 5MG/325MG), 1 TABLET PO Q4H PRN for Neck/Headache Pain Oxymorphone Hcl (Oxymorphone Hydrochloride), 10 MG PO BID PRN for Pain Allergies Coded Allergies: Meperidine (Verified Adverse Reaction, Unknown, ANXIETY, 10/04/16) Metoclopramide (Verified Adverse Reaction, Unknown, ANXIETY, 10/04/16) Vital Signs Date Time Temp Pulse Resp B/P (MAP) Pulse Ox O2 Delivery O2 Flow Rate FiO2 10/04/16 12:00 58 16 132/71 96 10/04/16 11:03 36.5 53 20 126/52 97 Room Air Medications Administered Medications (Trade) Dose Ordered Sig/Babs Route Start Time Stop Time Status Last Admin Dose Admin Hydromorphone HCl (Dilaudid Inj) 3 mg ONE STAT IM 10/04/16 11:25 10/04/16 11:28 DC 10/04/16 11:36 3 MG Ketorolac Tromethamine (Toradol Inj) 60 mg NOW STAT IM 10/04/16 11:25 10/04/16 11:28 DC 10/04/16 11:36 60 MG Ondansetron HCl (Zofran Odt) 4 mg NOW STAT PO 10/04/16 11:25 10/04/16 11:28 DC 10/04/16 11:36 4 MG Departure Information Impression Primary Impression: Migraine Dispostion Home / Self-Care Condition GOOD Referrals Santa Reese MD (PCP) Patient Instructions My [facility] Additional Instructions Rest at home, resume prescription medications. See your own doctor in follow- up. Problem Qualifiers Primary Impression: Migraine
[2016-10-04 12:00] VITALS: BP 132/71; PULSE 58; O2SAT 96
== END 2016-10-04 12:01 | disposition home or self-care (01) ==
LOC: C.EDB 11:01 → C.EDD 12:01
DX: G43.909 Migraine, unspecified, not intractable, without status migrainosus (principal); F17.200 Nicotine dependence, unspecified, uncomplicated; Z87.442 Personal history of urinary calculi; Z88.8 Allergy status to other drugs, medicaments and biological substances

== ENCOUNTER 2016-10-07 17:23 | Emergency (ER) | payer OTHER ==
[~2016-10-07] VITALS: Ht 175.3 cm; Wt 71.0 kg
[~2016-10-07 17:23] MED LIST changes: +AMOX1TAB43 PO
[2016-10-07 17:25] VITALS: TEMP 36.6; Ht 175.3 cm; Wt 71.0 kg
[2016-10-07] MEDS ORDERED: KETOROLAC TROMETHAMINE 60 MG/2 ML VIAL IM STA (17:42)
[2016-10-07] MEDS ORDERED: HYDROmorphone INJ 1 MG/ML SYR IM STA (17:42)
[2016-10-07] MEDS ORDERED: ONDANSETRON 4MG OD TAB PO ONE (17:45)
--- NOTE | 2016-10-07 17:55 | EMERGENCY ROOM VISIT NOTE ---
History First contact with patient: 17:26 Chief Complaint: HEADACHE Stated Complaint: MIGRAINE History of Present Illness The patient is a 36 year old male who presents to the Emergency Room with complaints of a recurrent migraine headache. The patient reports that he was here less than a week ago with a migraine. A complete resolved and returned this morning. The patient reports a history of chronic migraines, and reports that he usually has neck discomfort, photophobia and nausea. This is not the worse headache of his life. The patient reports that he has pretty much exhausted all treatment options with Dr. Kimble, neurologist at a headache clinic in [place]. The patient reports that he is currently on oxymorphone and Vicodin without any relief of his migraines. The patient has also been evaluated by spine surgeons and has undergone facet injections as well without significant long-standing relief. It was suggested that he consider an occipital block, however the patient has refused to do so. He currently rates his discomfort a 9 out of 10. Review of Systems 10 system review was performed and was negative except for pertinent positives and negatives as indicated in history of present illness Past Medical/Surgical History Medical Problems: (1) Abdominal pain (2) Chronic sinusitis (3) Headache (4) Headache (5) Headache (6) IDIOPATHIC SCOLIOSIS (7) Kidney stone (8) Migraine (9) Migraine (10) Migraine (11) Migraine (12) Migraine (13) Migraine (14) Migraine headache (15) Migraine headache (16) Migraine headache (17) Migraine headache (18) MIGRAINE UNSPECIFIED W/O INTRACT MGRN W/O STATUS MIGRAINOSUS (19) Shortness of breath (20) TOBACCO USE DISORDER Family History FHx: headache Kidney stones Social History Smoking Status: Never Smoker Alcohol Use: none Drug Use: none Marital Status: Housing Status: lives with family Occupation Status: unemployed Current/Historical Medications Scheduled Amoxicillin & Pot Clavulanate (Amoxicillin/Clavulanate P), 1 TAB PO BID Multiple Vitamins W/ Minerals (Centrum), 1 TAB PO DAILY Potassium (Potassium), 99 MG PO QAM Scheduled PRN Hydrocodone/Acetaminophen 5MG/325MG ([place] 5MG/325MG), 1 TABLET PO Q4H PRN for Neck/Headache Pain Oxymorphone Hcl (Oxymorphone Hydrochloride), 10 MG PO BID PRN for Pain Physical Exam Vital Signs Date Time Temp Pulse Resp B/P (MAP) Pulse Ox O2 Delivery O2 Flow Rate FiO2 10/07/16 17:25 36.6 84 16 119/72 100 Room Air Physical Exam CONSTITUTIONAL: Healthy and well nourished. Alert and oriented X 3 with positive affect. HEENT: Normocephalic, atraumatic. Pupils equal, round and reactive. Patient is photophobic, precluding funduscopic exam. NECK: Full active range of motion without discomfort. No nuchal rigidity. RESPIRATORY: Clear to auscultation bilaterally with no wheezing, crackles, rhonchi or stridor. CARDIOVASCULAR: Regular rate and rhythm with no murmurs, rubs or gallops. MUSCULOSKELETAL: Full range of motion of all joints without discomfort. Should has no tenderness to palpation through the posterior shoulders or interscapular region. Equal hand group home manager bilaterally. INTEGUMENTARY: No rash or other significant dermatologic conditions noted. NEUROLOGIC: Cranial nerves II-XII grossly intact. No focal neurologic deficits noted. Negative pronator drift. Normal finger to nose test. No ataxia noted when ambulated from triage to his examination room. Medical Decision & Procedures ED Course Patient history and physical exam were performed. Nurse's notes were reviewed. Vital signs were reviewed and were normal. Review medical records shows that the patient is currently on a treatment plan of 2 narcotic injections per month. This is his second visit of the month. According to his current treatment plan, the patient was administered Dilaudid 3 mg and Toradol 60 mg IM , along with Zofran 4 mg ODT. The patient was encouraged to follow-up with the [facility] to consider further interventions. He was also given the name of the [facility] in [place]. The patient was advised that the emergency department will soon no longer provide narcotic treatment for chronic migraines, and that he should find definitive management of his migraines. The patient voiced understanding of all discharge instructions, and requested immediate discharge after his injections, and rated his pain a 7 out of 10. Medical Decision The patient is well-known to our emergency department with history of chronic migraines. His headache is no different than prior migraines. He gives no history that would warrant any new imaging studies or laboratory studies. I do not suspect intracranial bleed, meningitis, TIA/CVA, thromboembolic event, abscess or carbon monoxide poisoning. Head Trauma GCS Score: 15 Blood Pressure Screening Patient's blood pressure: Normal blood pressure Impression Primary Impression: Migraine Departure Information Dispostion Home / Self-Care Referrals Santa Reese MD (PCP) Upendra. Rich M.D. Forms HOME CARE DOCUMENTATION FORM, IMPORTANT VISIT INFORMATION Patient Instructions My [facility] Additional Instructions Rest and remain well-hydrated. Continue with your current home medications as prescribed by the headache clinic. Suggest follow-up with the [facility] (Dr. Rich) to discuss other interventions/treatment options. You may also call the [facility] ([facility]) in [place] for a second opinion. Problem Qualifiers Primary Impression: Migraine Migraine type: unspecified Status migrainosus presence: without status migrainosus Intractability: not intractable Qualified Codes: G43.909 - Migraine, unspecified, not intractable, without status migrainosus
[2016-10-07 18:12] VITALS: BP 113/93; PULSE 105; O2SAT 98
== END 2016-10-07 18:12 | disposition home or self-care (01) ==
LOC: C.EDB 17:24 → C.EDD 18:12
DX: G43.909 Migraine, unspecified, not intractable, without status migrainosus (principal); J32.9 Chronic sinusitis, unspecified; M41.20 Other idiopathic scoliosis, site unspecified; F17.200 Nicotine dependence, unspecified, uncomplicated; Z87.442 Personal history of urinary calculi; Z84.1 Family history of disorders of kidney and ureter

== ENCOUNTER 2016-11-27 11:59 | Emergency (ER) | payer OTHER ==
[~2016-11-27] VITALS: Ht 175.3 cm; Wt 69.3 kg
[~2016-11-27 11:59] MED LIST changes: -ONDA4TAB10 SL
[2016-11-27 12:04] VITALS: BP 113/75; PULSE 81; TEMP 36.8; O2SAT 100; Ht 175.3 cm; Wt 69.3 kg
--- NOTE | 2016-11-27 12:26 | EMERGENCY ROOM VISIT NOTE ---
ED Visit Note First contact with patient: 12:17 CHIEF COMPLAINT: Migraine headache HISTORY OF PRESENT ILLNESS: This 36-year-old male patient presented to the emergency department with a gradual onset of a severe generalized headache that started this morning. There has been associated photophobia, phonophobia, nausea and vomiting. The patient denies fever or chills recently, and there is no weakness or numbness of the extremities. There is no difficulty with speech or vision. No trauma to the head and no neck pain. The pain is severe, constant , and it is slowly increasing in severity. The patient rates the pain as severe and 8/10. The patient has taken his usual medications. This is not the worst headache of the life and is similar to previous migraines. Previous imaging studies of the brain (CT scans) have been normal. REVIEW OF SYSTEMS: An 8 system review of systems was completed with positives and pertinent negatives listed in the HPI. ALLERGIES: Metoclopramide MEDICATIONS: Unchanged from previous PMH: Migraines SOCIAL HISTORY: The patient is . He lives locally PHYSICAL EXAM: Vital Signs: Reviewed Nurse's notes, vital signs stable. MENTAL STATUS: Alert, oriented, and coherent. In great distress from the headache. NECK : Supple, no nuchal rigidity, nontender, no lymphadenopathy. HEART: Regular rhythm and normal rate without murmurs, ectopy, gallops, or rubs. SKIN: Normal. NEUROLOGICAL: Pupils are round, equal and react to light. The optic fundi are normal and the discs are flat. EOMs are full and there is no nystagmus. The patient moves all extremities well and the gait is normal. EMERGENCY DEPARTMENT COURSE: I examined the patient. The patient had been on a 2 shot per month treatment protocol. The patient is aware that that protocol is no longer in place. He was told at his last visit that the protocol is no longer in place. He was given medication at that time. He states that he never got a letter but he is well aware that the protocol has been discontinued. I did offer to treat the patient with nonnarcotic medications. He states that "he'll pass." I advised the patient to follow-up with his family doctor and neurology. I advised him that we would get his discharge papers. However, the patient walked out of the room after I left. He eloped from the emergency department. Problem List Medical Problems: (1) Abdominal pain Status: Resolved (2) Chronic sinusitis Status: Resolved (3) Headache Status: Resolved (4) Headache Status: Resolved (5) Headache Status: Resolved (6) IDIOPATHIC SCOLIOSIS Status: Chronic (7) Kidney stone Status: Resolved (8) Migraine Status: Resolved (9) Migraine Status: Resolved (10) Migraine Status: Resolved (11) Migraine Status: Resolved (12) Migraine Status: Resolved (13) Migraine Status: Resolved (14) Migraine headache Status: Resolved (15) Migraine headache Status: Resolved (16) Migraine headache Status: Resolved (17) Migraine headache Status: Resolved (18) MIGRAINE UNSPECIFIED W/O INTRACT MGRN W/O STATUS MIGRAINOSUS Status: Chronic (19) Shortness of breath Status: Resolved (20) TOBACCO USE DISORDER Status: Chronic Current/Historical Medications Scheduled PRN Hydrocodone/Acetaminophen 5MG/325MG ([place] 5MG/325MG), 1 TABLET PO Q4H PRN for Neck/Headache Pain Allergies Coded Allergies: Meperidine (Verified Adverse Reaction, Unknown, ANXIETY, 10/07/16) Metoclopramide (Verified Adverse Reaction, Unknown, ANXIETY, 10/07/16) Vital Signs Date Time Temp Pulse Resp B/P (MAP) Pulse Ox O2 Delivery O2 Flow Rate FiO2 11/27/16 12:04 36.8 81 18 113/75 100 Room Air Departure Information Impression Primary Impression: Migraine Dispostion Other (eloped from ed) Condition GOOD Referrals Santa Reese MD (PCP) Patient Instructions [facility] Problem Qualifiers Primary Impression: Migraine Status migrainosus presence: without status migrainosus Intractability: not intractable
== END 2016-11-27 12:25 | disposition left against medical advice (07) ==
LOC: C.EDB 12:01 → C.EDD 12:25
DX: G43.909 Migraine, unspecified, not intractable, without status migrainosus (principal); M41.20 Other idiopathic scoliosis, site unspecified

== ENCOUNTER 2023-02-11 11:50 | Observation (INO) ==
[2023-02-11 12:27] LABS: Basophils # (auto) 0.02 K/uL (0.00-0.20); Basophils % (auto) 0.3 %; Eosinophils # (auto) 0.07 K/uL (0.00-0.50); Eosinophils % (auto) 1.1 %; Hemoglobin 12.2 g/dl (14.0-18.0); Immature Granulocytes # (auto) 0.01 K/uL (0.01-0.20); Immature Granulocytes % (auto) 0.2 %; Lymphocytes # (auto) 1.14 K/uL (1.20-3.40); Lymphocytes % (auto) 18.7 %; Mean Corpuscular Hemoglobin 31.4 pg (25.0-34.0); Mean Corpuscular Hgb Conc 34.9 g/dL (32.0-36.0); Mean Corpuscular Volume 90.2 fL (80.0-100.0); Mean Platelet Volume 9.9 fL (9.4-12.4); Monocytes # (auto) 0.27 K/uL (0.11-0.59); Monocytes % (auto) 4.4 %; Neutrophils % (auto) 75.3 %; Platelet Count 219 K/uL (130-400); RDW Coefficient of Variation 11.5 % (11.5-14.5); RDW Standard Deviation 37.4 fL (36.4-46.3); Red Blood Count 3.88 M/uL (4.70-6.10); White Blood Count 6.11 K/ul (4.8-10.8)
[2023-02-11 12:28] LABS: Appearance Urine Turbid (Clear); Bacteria Urine Automated Negative (Negative); Blood Urine 3+ (Negative); Color Urine Red; Glucose Urine UA Negative (Negative); Ketones Urine Negative (Negative); Leukocyte Esterase Urine 1+ (Negative); Nitrite Urine Positive (Negative); Protein Urine 2+ (Negative); RBC Urine Automated >30 /hpf (0-4); Specific Gravity Urine 1.021 (1.000-1.030); Urobilinogen Urine Negative (Negative); pH Urine 5.5 (4.5-7.5)
[2023-02-11 12:36] LABS: Bilirubin Urine 1+ (Negative)
[2023-02-11 12:40] LABS: Albumin Globulin Ratio 2.1 (0.9-2); Albumin Level 4.9 gm/dl (3.4-5.0); BUN Creatinine Ratio 20.2 (10-20); Bilirubin,Total 0.7 mg/dl (0.2-1.0); Calcium 9.6 mg/dl (8.6-10.3); Creatinine Clr Calc Pharmacy 112.2 ml/min; Est GFR (African American) 123.4 ml/min; Est GFR (Non-African American) 106.5 ml/min; Globulin 2.3 gm/dl (2.5-4.0); Potassium 3.9 mmol/L (3.5-5.1); Total Protein 7.2 gm/dl (6.0-8.3)
[2023-02-11] MEDS ORDERED: OPTIRAY 320 500ml IV ONE (12:47)
--- NOTE | 2023-02-11 13:47 | CT Scan Report ---
ABDOMEN AND PELVIS CT WITH IV CONTRAST CT DOSE: 503.68 mGy.cm HISTORY: Generalized abdominal pain. TECHNIQUE: Multiaxial CT images of the abdomen and pelvis were performed following the use of intrave nous contrast. A dose lowering technique was utilized adhering to the principles of ALARA. COMPARISON STUDY: Abdomen and pelvis CT 02/21/2022. FINDINGS: The lung bases are clear. No pneumoperitoneum. No pneumatosis. No acute fractures. There is a small fat-containing umbilical hernia. The liver, gallbladder, pancreas, spleen, and adrenal gland s are unremarkable. A few subcentimeter bilateral renal hypodense lesions are technically too small t o characterize but favor cysts. No hydronephrosis. However, there is a 6 x 5 mm nonobstructing stone within the proximal right ureter on image 183. The main portal vein is patent. Normal caliber abdomin al aorta. No retroperitoneal or pelvic lymphadenopathy. There is mild bladder wall thickening. The pr ostate gland is borderline enlarged. Fluid-filled distal colon and rectum. However, no bowel wall thi ckening or obstruction. The appendix is only partially visualized but appears unremarkable. IMPRESSION: 1. A 6 x 5 mm nonobstructing stone within the proximal right ureter. No hydronephrosis. 2. Fluid-filled distal colon and rectum. This is nonspecific but could represent a diarrheal illness/ gastroenteritis. 3. Mild bladder wall thickening. Recommend correlation with urinalysis to exclude a cystitis. 4. No bowel wall thickening or obstruction. ACT 112: Negative or not required by law. Electronically signed by: Chaim Araujo M.D. 02/11/2023 1:46 PM
[2023-02-11] MEDS ORDERED: KETOROLAC TROMETHAMINE 15 MG/ML VIAL IV STA (14:42)
[2023-02-11] MEDS ORDERED: ONDANSETRON INJ 2 MG/ML 2 ML VIAL IV STA (14:42)
[2023-02-11] MEDS ORDERED: ONDANSETRON 4 MG OD TAB PO STA (15:19)
[2023-02-11] MEDS ORDERED: KETOROLAC TROMETHAMINE 15 MG/ML VIAL IM STA (15:19)
[2023-02-11] MEDS ORDERED: MoRPHine SULFATE 2 MG/ML CARP IV STA (15:52)
--- NOTE | 2023-02-11 17:22 | History & Physical Report ---
Date of Service February 11, 2023 Assessment & Plan (1) Kidney stone: Plan: Non-obstructive R urteral stone - CT-A/P: 1. A 6 x 5 mm nonobstructing stone within the proximal right ureter. No hydronephrosis. - UAno bacteria, nitrate, blood, and leukocyte esterase positive. Endorses some dysuria earlier, none today. Covered with Rocephin As wellfluids, Flomax ordered. Clears tonight, n.p.o. at midnight Urology consulted Multimodal pain control (2) Hernia, umbilical: Plan Dispo medical/surgical Diet: Clears, n.p.o. at midnight Full COde History of Present Illness Primary Care Provider: [facility] [address] Time 43-year-old male with a history of nephrolithiasis who presents with nonobs tructive6 x 5 mm nonobstructing proximal right ureteral stone. Was initially set for discharge but due to too much pain could not return home. Case was reviewed with urology he is pending urologic intervention tomorrow morning, may have expulsive therapy tonight and n.p.o. overnight. Patient denies fever, chills, sweats. Endorses right low abdomen pain and flank pain without radiation to the left abdomen. No chest pain or chest pressure. Denies other medical history. Is hopeful to pass stone without cystoscopy. Sensitive to Demerol and Reglan, otherwise denies medication allergies. Social history reviewed. Allergies Allergy/AdvReac Type Severity Reaction Status Date / Time meperidine AdvReac Unknown ANXIETY Verified 03/20/22 07:13 metoclopramide AdvReac Unknown ANXIETY Verified 03/20/22 07:13 Home Medications Medication Instructions Recorded Confirmed Type multivitamin 1 tab PO QDL 09/05/18 02/11/23 History erenumab-aooe 140 mg/mL 140 mg subcut MONTHLY 02/14/20 02/11/23 History subcutaneous auto-injector (Aimovig Autoinjector) Stone Free 1 dose PO DAILY PRN kidney stones 02/28/22 02/11/23 History etodolac 200 mg capsule 200 mg PO BID PRN pain #20 caps 02/11/23 Rx ondansetron 4 mg disintegrating 4 mg PO Q8H PRN nausea and 02/11/23 Rx tablet vomiting #30 tabs rimegepant 75 mg disintegrating 75 mg PO DAILY 02/11/23 02/11/23 History tablet (Nurtec ODT) tamsulosin 0.4 mg capsule (Flomax) 0.4 mg PO DAILY #14 caps 02/11/23 Rx Past Med/Surg History Medical History Chronic anemia Follows with HARSHA Woody. Chronic back pain Chronic neck pain Chronic sinusitis Degenerative disc disease History of COVID-19 02/11/22 [place]- NO SYMPTOMS, INCIDENTAL FINDING WHEN WENT TO ER W/ KIDNEY STONE History of Lyme disease Kidney stones Migraines Scoliosis MILD Seasonal allergies Surgical History H/O colonoscopy History of esophagogastroduodenoscopy (EGD) History of lithotripsy [facility] 03/08/21 History of wisdom tooth extraction Family History Father , [place] 62 Coronary heart disease Myocardial infarction, Onset Age: 38 Hypertension Mother Skin cancer History of radiofrequency ablation procedure for cardiac arrhythmia Grandmother (Maternal) Ovarian cancer Grandmother (Paternal) , late 30s Ovarian cancer Other No family history of adverse response to anesthesia Denies family history of Prostate cancer Breast cancer Colorectal cancer Social History Smoking Status: Never smoker Tobacco Type: Smokeless Tobacco (Dip or Chew) Second Hand Exposure: No; Do You Dip or Chew Tobacco: Yes (ADVISED); Hx Alcohol Use: No Hx Substance Use: No Preferred Language: Slovak Communication Ability: Effective Visual Impairment: No Limitations Hearing Ability: Normal [place] Required: No Beliefs That Will Affect Care: None marital status: Current Living Situation: Spouse current occupational status: disabled Feels Safe at Home: Yes Childhood Exposure to Second-Hand Smoke: No Diet: regular Diet Comment: Regular caffeine: Yes during the past year weight has: remained stable Dental Care, Regularly: Yes Physical Activity Frequency: Daily Seatbelt Use: always Sunscreen Use: Yes Assistive Devices: Glasses Physical Exam Physical Exam: General: A&Ox3. NAD. Cooperative. HEENT: Atraumatic, normocephalic., vision/hearing inctact Pulm: CTAB A&P. -wheezes, -rales, -rhonchi. Symmetrical chest rise. No increased work of breathing. No respiratory distress. Cardiac: RRR, -mrg. Radial pulses intact and symmetrical. Abdominal: Right lower quadrant tender to palpation without radiation or guarding. Extremities: Warm/dry Results & Data Results & Data Vital Signs (Past 12 Hours) Vital Signs Temp Pulse Pulse Resp BP BP Pulse Ox 02/11/23 16:33 86 18 133/89 98 02/11/23 15:28 74 20 124/70 98 02/11/23 11:51 36.5 C 85 16 141/89 H 100 O2 Del Method 02/11/23 16:33 Room Air 02/11/23 15:28 Room Air 02/11/23 11:51 Room Air PG Care Time/CCT Total # of Minutes Spent Total Time Spent with Patient: Total time spent is greater than 50% in coordination of care (as documented) at patient's floor/unit and/or counseling patient: Coding Level of Care Code 38308 INT INP/OBS CARE 2/55MIN Diagnoses Kidney stone N20.0 Hernia, umbilical K42.9
[2023-02-11] MEDS ORDERED: HYDROmorphone INJ 0.5 MG/0.5 ML SYR IV PRN (17:23)
[2023-02-11] MEDS ORDERED: cefTRIAXone SODIUM 2,000 MG in DEXTROSE 5 % MINI-B 50 ML IV STA (17:23)
[2023-02-11] MEDS: PLASMA-LYTE A 1,000 ML IV SCH (17:43)
[2023-02-11] MEDS: HYDROmorphone INJ 1 MG/ML SYRINGE IV PRN ×2 (17:49→21:49)
[2023-02-11] MEDS: TAMSULOSIN HCL 0.4 MG CAP PO SCH (17:53)
--- NOTE | 2023-02-11 18:08 | Emergency Department Note ---
History of Present Illness General Chief Complaint: Kidney Stone Stated Complaint: ABDOMINAL PAIN, HEMATURIA, HURNIA, KIDNEY STONE Time Seen by Provider: 02/11/23 13:51 History of Present Illness Provider Complaint: flank pain Onset (ago): 1 day(s) Pain Consistency: intermittent Location: R flank Severity: moderate Maximum Pain Intensity: 8 Current Pain Intensity: 8 Quality: + stabbing and + sharp Relieved By: + nothing Exacerbated By: + nothing and + vomiting Context: + history of similar episodes (History of kidney stones); no foreign travel, no possible food poisoning, no sick contacts, no recent antibiotic use, no recent surgery/procedure or no recent injury Associated Symptoms: + nausea, + vomiting, + dysuria and + hematuria; no diarrhea, no fever, no chills, no constipation, no hematemesis, no hematochezia, no melena, no syncope, no headache and no chest pain Home Medications Medication Instructions Recorded Confirmed Type multivitamin 1 tab PO QDL 09/05/18 02/11/23 History erenumab-aooe 140 mg/mL 140 mg subcut MONTHLY 02/14/20 02/11/23 History subcutaneous auto-injector (Aimovig Autoinjector) Stone Free 1 dose PO DAILY PRN kidney stones 02/28/22 02/11/23 History etodolac 200 mg capsule 200 mg PO BID PRN pain #20 caps 02/11/23 Rx ondansetron 4 mg disintegrating 4 mg PO Q8H PRN nausea and 02/11/23 Rx tablet vomiting #30 tabs rimegepant 75 mg disintegrating 75 mg PO DAILY 02/11/23 02/11/23 History tablet (Nurtec ODT) tamsulosin 0.4 mg capsule (Flomax) 0.4 mg PO DAILY #14 caps 02/11/23 Rx Allergies Allergy/AdvReac Type Severity Reaction Status Date / Time meperidine AdvReac Unknown ANXIETY Verified 03/20/22 07:13 metoclopramide AdvReac Unknown ANXIETY Verified 03/20/22 07:13 Past Med/Surg History Medical History History of COVID-19 02/11/22 [place] ER- NO SYMPTOMS, INCIDENTAL FINDING WHEN WENT TO ER W/ KIDNEY STONE Seasonal allergies Kidney stones Chronic anemia Follows with HARSHA Woody. Chronic neck pain Chronic back pain Degenerative disc disease Scoliosis MILD History of Lyme disease Migraines Chronic sinusitis Surgical History History of lithotripsy [facility] 03/08/21 H/O colonoscopy History of esophagogastroduodenoscopy (EGD) History of wisdom tooth extraction Family History Father , [place] age 62 Coronary heart disease Myocardial infarction, Onset Age: 38 Hypertension Mother Skin cancer History of radiofrequency ablation procedure for cardiac arrhythmia Grandmother (Maternal) Ovarian cancer Grandmother (Paternal) , late 30s Ovarian cancer Other No family history of adverse response to anesthesia Denies family history of Prostate cancer Breast cancer Colorectal cancer Social History Smoking Status: Never smoker Tobacco Type: Smokeless Tobacco (Dip or Chew) Second Hand Exposure: No; Do You Dip or Chew Tobacco: Yes (ADVISED); Hx Alcohol Use: No Hx Substance Use: No Preferred Language: Upper Sorbian Communication Ability: Effective Visual Impairment: No Limitations Hearing Ability: Normal Payment Rep Required: No Beliefs That Will Affect Care: None marital status: Current Living Situation: Spouse current occupational status: disabled Feels Safe at Home: Yes Childhood Exposure to Second-Hand Smoke: No Diet: regular Diet Comment: Regular caffeine: Yes during the past year weight has: remained stable Dental Care, Regularly: Yes Physical Activity Frequency: Daily Seatbelt Use: always Sunscreen Use: Yes Assistive Devices: Glasses Physical Exam 2 Vital Signs: Vital Signs - 24 hr 02/11/23 11:51 02/11/23 15:28 02/11/23 16:33 Temperature 36.5 C Temperature Source Oral Pulse Rate 85 74 Pulse Rate [Apical ] 86 Respiratory Rate 16 20 18 Respiratory Effort / Characteristics Non-Labored Sponta neous Non-Labored Respiratory Depth Normal Normal Blood Pressure 141/89 H 124/70 Blood Pressure [Le ft Arm] 133/89 Blood Pressure Kalpana n 106 Blood Pressure Kalpana n [Left Arm] 103 Pulse Oximetry 100 98 98 Oxygen Delivery Me thod Room Air Room Air Room Air Sepsis Recent Feve r Within 48 Hours No Sepsis New/Unexpla ined Change in Men demond Status No Sepsis Action Take n by Nursing No Action Required Physical Exam: Physical Exam GENERAL: She is oriented to person, place, and time. She appears well-developed and well-nourished. She does not appear distressed. HENT: Exam performed. -Head: Normocephalic and atraumatic. -Right Ear: External ear normal. No mastoid erythema -Left Ear: External ear normal. No mastoid erythema -Mouth/Throat: The oropharynx is clear and moist. No trismus in the jaw. No dental abscesses or uvula swelling. No oropharyngeal exudate or tonsillar abscesses. EYES: Conjunctivae and EOM are normal.Right eye exhibits no discharge. Left eye exhibits no discharge. No scleral icterus. NECK: Normal range of motion. Neck supple. No JVD present. No tracheal deviation and normal range of motion present. CV: Normal rate, regular rhythm, normal heart sounds and intact distal pulses. There is no peripheral edema. Palpable radial pulses bue. PULM/CHEST: Effort normal and breath sounds normal. No respiratory distress. No stridor. She has no wheezes. She has no rales. -Chest Wall: She exhibits no tenderness. ABD: The abdomen is soft. Bowel sounds are normal. She has no distension. No mass is present. There is no tenderness. There is no rebound, no guarding, no Rodriguez's sign and no tenderness at McBurney's point. Rovsig negative. Right- sided CVA tenderness MUSC/SKEL: Normal range of motion. There is no peripheral edema, tenderness or deformity. NEURO: Motor and sensation grossly intact. SKIN: Skin is warm and dry. She is not diaphoretic. PSYCH: She has a normal mood and affect. Behavior is normal. Judgment and thought content normal. Course Course 1351: The patient was evaluated in room D6. A complete history and physical exam was performed Administered Medications Hydromorphone HCl (Hydromorphone Inj 1 Mg/Ml Syringe) 1 mg IV Q4H PRN PRN Reason: Severe Pain (7,8,9,10) on NRS Stop: 02/25/23 17:22 Last Admin: 02/11/23 17:49 Dose: 1 mg Documented By: GGG Parenteral Electrolytes (Plasma-Lyte A Ph 7.4) 1,000 mls @ 125 mls/hr IV .Q8H [facility] Stop: 03/13/23 17:29 Last Admin: 02/11/23 17:43 Dose: 125 mls/hr Documented By: PHILIP Tamsulosin HCl (Tamsulosin Hcl 0.4 Mg Cap) 0.4 mg PO QAM [facility] Stop: 03/13/23 17:29 Last Admin: 02/11/23 17:53 Dose: 0.4 mg Documented By: PHILIP Discontinued Medications Ioversol (Optiray 320 500ml) 86 ml IV ONCE ONE Stop: 02/11/23 12:48 Last Admin: 02/11/23 12:51 Dose: 86 ml Documented By: BRJosef Ketorolac Tromethamine (Ketorolac Tromethamine 15 Mg/Ml Vial) 15 mg IV NOW STA Stop: 02/11/23 14:43 Last Admin: 02/11/23 15:19 Dose: Not Given Documented By: HS Ketorolac Tromethamine (Ketorolac Tromethamine 15 Mg/Ml Vial) 15 mg IM NOW STA Stop: 02/11/23 15:20 Last Admin: 02/11/23 15:24 Dose: 15 mg Documented By: HS Morphine Sulfate (Morphine Sulfate 2 Mg/Ml Carp) 2 mg IV NOW STA Stop: 02/11/23 15:53 Last Admin: 02/11/23 16:18 Dose: 2 mg Documented By: HS Ondansetron HCl (Ondansetron Inj 2 Mg/Ml 2 Ml Vial) 4 mg IV NOW STA Stop: 02/11/23 14:43 Last Admin: 02/11/23 15:19 Dose: Not Given Documented By: HS Ondansetron HCl (Ondansetron 4 Mg Od Tab) 4 mg PO NOW STA Stop: 02/11/23 15:20 Last Admin: 02/11/23 15:24 Dose: 4 mg Documented By: HS Medical Decision Making Laboratory Data Attestation: I reviewed the patient's lab results. 02/11/23 12:05 02/11/23 12:05 Lab Results 02/11/23 02/11/23 Range/Units 12:05 Unknown WBC 6.11 (4.8-10.8) K/ul RBC 3.88 L (4.70-6.10) M/uL Hgb 12.2 L (14.0-18.0) g/dl Hct 35.0 L (42.0-52.0) % MCV 90.2 (80.0-100.0) fL MCH 31.4 (25.0-34.0) pg MCHC 34.9 (32.0-36.0) g/dL RDW Std Deviation 37.4 (36.4-46.3) fL RDW Coeff of Steven 11.5 (11.5-14.5) % Plt Count 219 (130-400) K/uL MPV 9.9 (9.4-12.4) fL Immature Gran % (Auto) 0.2 % Neut % (Auto) 75.3 % Lymph % (Auto) 18.7 % Emery % (Auto) 4.4 % Eos % (Auto) 1.1 % Baso % (Auto) 0.3 % Neut # (Auto) 4.60 (1.40-6.50) K/uL Lymph # (Auto) 1.14 L (1.20-3.40) K/uL Emery # (Auto) 0.27 (0.11-0.59) K/uL Eos # (Auto) 0.07 (0.00-0.50) K/uL Baso # (Auto) 0.02 (0.00-0.20) K/uL Immature Gran # (Auto) 0.01 (0.01-0.20) K/uL Sodium 141 (136-145) mmol/L Potassium 3.9 (3.5-5.1) mmol/L Chloride 107 (98-107) mmol/L Carbon Dioxide 29 (21-32) mmol/L Anion Gap 5 (3-11) BUN 17 (6-23) mg/dl Creatinine 0.84 (0.6-1.4) mg/dl Est Cr Clr Drug Dosing 112.2 ml/min Est GFR ( Amer) 123.4 ml/min Est GFR (Non-Af Amer) 106.5 ml/min BUN/Creatinine Ratio 20.2 H (10-20) Glucose 131 H (70-99(Fasting)) mg/dl Lactate 0.5 (0.4-2.0) mmol/L Calcium 9.6 (8.6-10.3) mg/dl Total Bilirubin 0.7 (0.2-1.0) mg/dl AST 16 (13-39) U/L ALT 9 (7-52) U/L Alkaline Phosphatase 45 (34-104) U/L Total Protein 7.2 (6.0-8.3) gm/dl Albumin 4.9 (3.4-5.0) gm/dl Globulin 2.3 L (2.5-4.0) gm/dl Albumin/Globulin Ratio 2.1 H (0.9-2) Lipase 13 (11-82) U/L Urine Color Red Urine Appearance Turbid A (Clear) Urine pH 5.5 (4.5-7.5) Ur Specific [place] 1.021 (1.000-1.030) Urine Protein 2+ H (Negative) Urine Glucose (UA) Negative (Negative) Urine Ketones Negative (Negative) Urine Blood 3+ H (Negative) Urine Nitrite Positive A (Negative) Urine Bilirubin 1+ H (Negative) Urine Urobilinogen Negative (Negative) Ur Leukocyte Esterase 1+ H (Negative) Urine WBC (Auto) 5-10 H (0-5) /hpf Urine RBC (Auto) >30 H (0-4) /hpf U Hyaline Cast (Auto) 1-5 (0-5) /lpf U Epithel Cells (Auto) 10-20 H (0-5) /lpf Urine Bacteria (Auto) Negative (Negative) Imaging Data Radiologist's Impression: Abdomen/Pelvis CT 02/11/23 12:[address] WITH IV CONTRAST CT DOSE: 503.68 mGy.cm HISTORY: Generalized abdominal pain. TECHNIQUE: Multiaxial CT images of the abdomen and pelvis were performed following the use of intravenous contrast. A dose lowering technique was utilized adhering to the principles of ALARA. COMPARISON STUDY: Abdomen and pelvis CT 02/21/2022. FINDINGS: The lung bases are clear. No pneumoperitoneum. No pneumatosis. No acute fractures. There is a small fat-containing umbilical hernia. The liver, gallbladder, pancreas, spleen, and adrenal glands are unremarkable. A few subcentimeter bilateral renal hypodense lesions are technically too small to characterize but favor cysts. No hydronephrosis. However, there is a 6 x 5 mm nonobstructing stone within the proximal right ureter on image 183. The main portal vein is patent. Normal caliber abdominal aorta. No retroperitoneal or pelvic lymphadenopathy. There is mild bladder wall thickening. The prostate gland is borderline enlarged. Fluid-filled distal colon and rectum. However, no bowel wall thickening or obstruction. The appendix is only partially visualized but appears unremarkable. IMPRESSION: 1. A 6 x 5 mm nonobstructing stone within the proximal right ureter. No hydronephrosis. 2. Fluid-filled distal colon and rectum. This is nonspecific but could represent a diarrheal illness/gastroenteritis. 3. Mild bladder wall thickening. Recommend correlation with urinalysis to exclude a cystitis. 4. No bowel wall thickening or obstruction. ACT 112: Negative or not required by law. Electronically signed by: Chaim Araujo M.D. 02/11/2023 1:46 PM [facility] Narrative Vital signs stable. Labs within normal limits. Imaging shows a 6 x 5 mm right- sided kidney stone in the proximal ureter no hydronephrosis. Plan initially was to discharge patient home with outpatient follow-up with his known urologist with analgesia antiemetic and Flomax prescriptions. At time discharge after receiving multiple doses of pain medications patient stated he could not take the pain and wanted to be admitted. Spoke with urology Negin states that they will plan on evaluating patient for procedure tomorrow keep the patient n.p.o. after midnight. Patient be admitted to the managing hospitalist team. Impression & Plan Kidney stone, Hernia, umbilical Discharge Plan Visit Data Chief Complaint: Kidney Stone Stated Complaint: ABDOMINAL PAIN, HEMATURIA, HURNIA, KIDNEY STONE ED Provider: Oscar Gongora Discharge Problem: Kidney stone, Hernia, umbilical Patient Disposition: Being Evaluated by Hospitalist Discharge Instructions Elmer/Other Patient Handouts: ED [facility] Kidney Stone Interventions: ED Discharge Assessment Last Done: 02/11/23 15:28 Forms Stand Alone Forms: [facility], Important Visit Information Prescriptions Prescriptions: New etodolac 200 mg capsule 200 mg PO BID PRN (Reason: pain) Qty: 20 0RF tamsulosin [Flomax] 0.4 mg capsule 0.4 mg PO DAILY Qty: 14 0RF ondansetron 4 mg tablet,disintegrating 4 mg PO Q8H PRN (Reason: nausea and vomiting) Qty: 30 0RF No Action Aimovig Autoinjector 140 mg/mL auto-injector 140 mg subcut MONTHLY multivitamin Tablet 1 tab PO QDL Stone Free 1 dose PO DAILY PRN (Reason: kidney stones) Nurtec ODT 75 mg tablet,disintegrating 75 mg PO DAILY Referrals Referrals: Phi Smart MD, FACS [Surgeon] - (Follow-up for regular scheduled appointment tomorrow.) Umer Bean MD [Physician] - (Follow-up in 1-7 days.) [facility] [Primary Care Provider] -
[2023-02-11] MEDS: ACETAMINOPHEN 1,000 MG/100 ML VIAL IV PRN (21:03)
--- OUTSIDE RECORDS SUMMARY | 2023-02-11 21:17 | External Medical Summary | Summary of Care ---
Author Name Unknown Organization [facility] Address [address] [place] [address] Phone [phone] Care Team Providers Care Web Project Manager Name Role Phone Patricia Ornelas DO Primary Care Provider [phone]- [phone] Reason for Visit * Reason Onset Date Comments Referral Requested by Specialist 10/08/2022 Encounter Details Date Type Department Care Team ([facility] st Contact Info) Description [facility] [address] [place] [address] Patricia Ornelas DO [address] [place] [address] Referral Requested by Specialist Allergies Active Allergy Reactions Criticality Noted Date Comments Demerol 01/13/2012 anxiety Metoclopramide Hcl 07/13/2012 anxiety documented as of this encounter (statuses as of 01/07/2023) Medications Medication Sig Dispensed Refills Start Date End Date Status CENTRUM PO TABS daily 0 Active Potassium 99 MG Tablet Take 99 mg by mouth daily. 0 Active venlafaxine XR (EFFEXOR XR) 37.5 MG CP24 Take 1-4 capsules by mouth in the morning as directed 50 Cap 1 10/23/2018 Active Additional Information Patient not taking.Reported on 09/14/2021 Baclofen 20 MG Oral TabletIndications:In tractable chronic migraine without aura and without status migrainosus,Cervical carla Take 1/2 to one tablet by mouth up to 3 times daily as needed for neck and head pain 60 Tab 11 10/20/2020 Active Additional Information Patient not taking.Reported on 09/06/2021 documented as of this encounter (statuses as of 01/07/2023) Active Problems Problem Noted Date Diagnosed Date 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 aura and without status migrainosus 07/07/2017 Neoplasm of uncertain behavior of skin 4 Cervicalgia 07/13/2012 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 Amblyopia 08/22/2011 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 documented as of this encounter (statuses as of 01/07/2023) Resolved Problems Problem Noted Date Diagnosed Date Resolved Date Medication overuse headache 07/20/2013 10/11/2022 documented as of this encounter (statuses as of 01/07/2023) Immunizations Name Administration Dates Next Due Seasonal Influenza Virus Vac cine, Unspecified Formulation 12/21/2021 documented as of this encounter Social History Tobacco Use Types Packs/Day Years Used Date Smoking Tobacco: Never Smokeless Tobacco: Current Snuff Comments:Chews two cans of s nuff a week as of 08/22/2011 Alcohol Use Standard Drinks/Week Comments Yes 0 (1 standard drink = 0.6 oz pur e alcohol) very rare PHQ-2 Answer Date Recorded PHQ-2 Score 1 10/23/2018 Sex and Gender Information Value Date Recorded Sex Assigned at Not on file Gender Identity Not on file Sexual Orientation Not on file Job Start Date Occupation Industry Not on file Not on file Not on file documented as of this encounter Functional Status Functional Status Response Date of Assess ment Are you deaf or do you have serious difficulty h earing? No 07/07/2017 Are you blind or do you have serious difficulty seeing, even when wearing glasses? No 07/07/2017 Do you have serious difficul ty walking or climbing stairs? (5 years old or older) No 07/07/2017 Do you have difficulty dress ing or bathing? (5 years old or older) No 07/07/2017 Because of a physical, menta l, or emotional condition, do you have difficulty doing errands alone such as visiting a doctor s office or shopping? (15 years old or older) No 07/08/19 18 Cognitive Status Response Date of Assessm ent Because of a physical, menta l, or emotional condition, do you have serious difficulty concentrating, remembering, or making decisions? (5 years old or older No 07/07/2017 documented as of this encounter Miscellaneous Notes * Telephone Encounter - Vicki, Neuro Referral - 10/08/2022 4:49 AM EDT Patient with upcoming neurology appointment. Please FAX referral order documented in this encounter Plan of Treatment Upcoming Encounters Date Type Department Care Team ([facility] st Contact Info) Description 06/04/2023 3:40 PM EDT Office Visit Dermatology [address] [place] [address] Negin Ramos PA-C [address] [place] [address] [place] [id number] 10/31/2023 1:40 PM EDT Telemedicine Neurology, [address] [address] Adelina Pruett MD [address] [place] [address] Health Maintenance Due Date Last Done Comments Hepatitis B (1 of 3 - 3-dose series) 1979 Lipid Panel 1979 HIV Screening 1994 Hepatitis C Screening 1997 DTaP,Tdap,and Td Vaccines (1 - Tdap) 1998 Depression Screening 10/24/2019 10/23/2018 COVID-19 Vaccine ( - season) 2022 12/08/2020, 06/06/2020, 05/16/2020 Influenza Vaccine (FLU shot) (#1) 2022 12/21/2021, 10/25/2019, 10/25/2019, Additional history exists GARDASIL-HPV IMMUNIZATION SERIES Aged Out No longer eligible based on patient's age to complete this topic MENINGOCOCCAL (MENACTRA/MENVEO) Aged Out No longer eligible based on patient's age to complete this topic Pneumococcal Vaccine: Pediatrics (0 to 5 Years) and At-Risk Patients (6 to 64 Years) Aged Out No longer eligible based on patient's age to complete this topic documented as of this encounter Medical Devices Not on filedocumented as of this encounter Care Teams Web Project Manager Relationship Specialty Start Date End Date Patricia Ornelas DO [address] [facility] [address] [facility] [place] [address] PCP - General Family Medicine 05/08/20 documented as of this encounter
--- OUTSIDE RECORDS SUMMARY | 2023-02-11 21:17 | External Medical Summary | Summary of Care ---
Author Name Unknown Organization [facility] Address [address] [place] [address] Phone [phone] Care Team Providers Care Grinder And Honer Operator Automatic Name Role Phone Patricia Ornelas DO Primary Care Provider +1- [phone] Reason for Visit * Reason Onset Date Comments Referral Requested by Specialist 10/10/2022 Encounter Details Date Type Department Care Team ([facility] st Contact Info) Description [facility] [address] [place] [address] Patricia Ornelas DO [address] [place] [address] Referral Requested by Specialist Allergies Active Allergy Reactions Criticality Noted Date Comments Demerol 01/13/2012 anxiety Metoclopramide Hcl 07/13/2012 anxiety documented as of this encounter (statuses as of 01/09/2023) Medications Medication Sig Dispensed Refills Start Date [...] as of this encounter (statuses as of 01/09/2023) Active Problems Problem Noted Date Diagnosed Date 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 aura and without status migrainosus 07/07/2017 Neoplasm of uncertain behavior of skin 4 Cervicalgia 07/13/2012 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 Please FAX referral order documented in this encounter Plan of Treatment Upcoming Encounters Date Type Department Care Team ([facility] st Contact Info) Description 06/04/2023 3:40 PM EDT Office Visit Dermatology [address] [place] [address] Negin Ramos PA-C [address] [place] [address] [place] [address] 10/31/2023 1:40 PM EDT Telemedicine Neurology, [address] [address] Adelina Pruett MD [address] [place] [address] Health Maintenance Due Date Last Done Comments [...] filedocumented as of this encounter Care Teams Grinder And Honer Operator Automatic Relationship Specialty Start Date End Date Patricia Ornelas DO [address] [facility] 2 [facility] [place] [address] PCP - General Family Medicine 05/08/20 documented as of this encounter
--- OUTSIDE RECORDS SUMMARY | 2023-02-11 21:17 | External Medical Summary | Summary of Care ---
Author Name Unknown Organization [facility] Address [address] [place] [address] Phone [phone] Care Team Providers Care Parts Remover Name Role Phone Patricia Ornelas DO Primary Care Provider +1- [phone] Reason for Visit * Reason Onset Date Comments Referral Requested by Specialist 10/07/2022 Encounter Details Date Type Department Care Team ([facility] st Contact Info) Description [facility] [address] [place] [address] Patricia Ornelas DO [address] [place] [address] Referral Requested by Specialist Allergies Active Allergy Reactions Criticality Noted Date Comments Demerol 01/13/2012 anxiety Metoclopramide Hcl 07/13/2012 anxiety documented as of this encounter (statuses as of 01/06/2023) Medications Medication Sig Dispensed Refills Start Date [...] as of this encounter (statuses as of 01/06/2023) Active Problems Problem Noted Date Diagnosed Date 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 aura and without status migrainosus 07/07/2017 Neoplasm of uncertain behavior of skin 4 Cervicalgia 07/13/2012 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 Please FAX referral order documented in this encounter Plan of Treatment Upcoming Encounters Date Type Department Care Team ([facility] st Contact Info) Description 06/04/2023 3:40 PM EDT Office Visit Dermatology [address] [place] [address] Negin Ramos PA-C [address] [place] [address] [place] [address] 10/31/2023 1:40 PM EDT Telemedicine Neurology, [address] [address] Adelina Pruett MD [address] [place] [address] Health Maintenance Due Date Last Done Comments [...] filedocumented as of this encounter Care Teams Parts Remover Relationship Specialty Start Date End Date Patricia Ornelas DO [address] [facility] 2 [facility] [place] [address] PCP - General Family Medicine 05/08/20 documented as of this encounter
--- OUTSIDE RECORDS SUMMARY | 2023-02-11 21:17 | External Medical Summary | Summary of Care ---
Author Name Unknown Organization [facility] Address [address] [place] [address] Phone [phone] Care Team Providers Care Field Supervisor [employer] Name Role Phone Patricia Ornelas DO Primary Care Provider [phone] Reason for Visit * Reason Onset Date Comments Referral Requested by Specialist 10/09/2022 Encounter Details Date Type Department Care Team ([facility] st Contact Info) Description [facility] [address] [place] [address] Patricia Ornelas DO [address] [place] [address] Referral Requested by Specialist Allergies Active Allergy Reactions Criticality Noted Date Comments Demerol 01/13/2012 anxiety Metoclopramide Hcl 07/13/2012 anxiety documented as of this encounter (statuses as of 01/08/2023) Medications Medication Sig Dispensed Refills Start Date [...] as of this encounter (statuses as of 01/08/2023) Active Problems Problem Noted Date Diagnosed Date 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 aura and without status migrainosus 07/07/2017 Neoplasm of uncertain behavior of skin 4 Cervicalgia 07/13/2012 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 Please FAX referral order documented in this encounter Plan of Treatment Upcoming Encounters Date Type Department Care Team ([facility] st Contact Info) Description 06/04/2023 3:40 PM EDT Office Visit Dermatology [address] [place] [id number] Negin Ramos PA-C [address] [place] [address] [place] [id number] 10/31/2023 1:40 PM EDT Telemedicine Neurology, [address] [address] Adelina Pruett MD [address] [place] [address] Health Maintenance Due Date Last Done Comments [...] filedocumented as of this encounter Care Teams Field Supervisor Seed Production Relationship Specialty Start Date End Date Patricia Ornelas DO [address] [facility] [address] [facility] [place] [id number] PCP - General Family Medicine 05/08/20 documented as of this encounter
[2023-02-12] MEDS: PLASMA-LYTE A 1,000 ML IV SCH ×3 (01:15→17:19)
[2023-02-12] MEDS: HYDROmorphone INJ 1 MG/ML SYRINGE IV PRN ×4 (02:03→22:56)
[2023-02-12 07:15] LABS: Basophils # (auto) 0.04 K/uL (0.00-0.20); Basophils % (auto) 0.7 %; Eosinophils # (auto) 0.15 K/uL (0.00-0.50); Eosinophils % (auto) 2.5 %; Hematocrit (blood only) 32.3 % (42.0-52.0); Hemoglobin 11.4 g/dl (14.0-18.0); Immature Granulocytes # (auto) 0.01 K/uL (0.01-0.20); Immature Granulocytes % (auto) 0.2 %; Lymphocytes # (auto) 1.49 K/uL (1.20-3.40); Lymphocytes % (auto) 25.1 %; Mean Corpuscular Hemoglobin 31.8 pg (25.0-34.0); Mean Corpuscular Hgb Conc 35.3 g/dL (32.0-36.0); Mean Corpuscular Volume 90.2 fL (80.0-100.0); Mean Platelet Volume 10.3 fL (9.4-12.4); Monocytes # (auto) 0.38 K/uL (0.11-0.59); Monocytes % (auto) 6.4 %; Neutrophils # (auto) 3.86 K/uL (1.40-6.50); Neutrophils % (auto) 65.1 %; Platelet Count 213 K/uL (130-400); RDW Coefficient of Variation 11.4 % (11.5-14.5); RDW Standard Deviation 37.4 fL (36.4-46.3); Red Blood Count 3.58 M/uL (4.70-6.10); White Blood Count 5.93 K/ul (4.8-10.8)
[2023-02-12 07:35] LABS: BUN Creatinine Ratio 24.7 (10-20); Calcium 9.6 mg/dl (8.6-10.3); Creatinine Clr Calc Pharmacy 129.1 ml/min; Est GFR (African American) 130.7 ml/min; Est GFR (Non-African American) 112.8 ml/min; Potassium 3.8 mmol/L (3.5-5.1)
[2023-02-12] MEDS: ONDANSETRON INJ 2 MG/ML 2 ML VIAL IV PRN ×2 (11:44→17:19)
[2023-02-12] MEDS: ACETAMINOPHEN 1,000 MG/100 ML VIAL IV PRN (12:25)
--- NOTE | 2023-02-12 13:24 | Hospitalist Progress Note ---
Date of Service February 12, 2023 Assessment & Plan (1) Kidney stone: (2) Chest pain: Plan Mr. Anders is a 43 y/o male who was admitted due to right ureteral stone with subsequent pain. Non-obstructive Right Ureteral stone - CT-A/P: 1. A 6 x 5 mm nonobstructing stone within the proximal right ureter. No hydronephrosis. - UAno bacteria, nitrate, blood, and leukocyte esterase positive. Endorses some dysuria earlier, none today. Covered with Rocephin -- 1 dose given in ED. Will continue. Urine cx pending - IVFs and Flomax ordered. Urology consulted Urology evaluated patient, and he was not in favor of proceeding with stent placement. Therefore, will start diet and manage conservatively with IVFs and pain management. Multimodal pain control Chest Pain - Patient without known history of HTN, HLD, or DM - Initial EKG without ST segment changes to suggest ischemia - Pain resolved by the time I arrived at the room - Will repeat EKG and order Troponins to r/o cardiac ischemic event Dispo medical/surgical Diet: Regular diet Full Code Admission and Anticipated Discharge Date Admission Date: February 11, 2023 Supervising Physician Co-Signing Physician Notes Resident Physician Supervision Note: I independently interviewed and examined the patient and verified the zuleta history and physical, reviewed labs and image studies and agree with resident findings and care plan. Subjective Mr. Anders is a 43 y/o male who was admitted due to ureteral stone that is causing significant pain. Urology was considering procedural intervention (stent) as management, which he had done in the past in a previous episode of kidney stones. Today he was evaluated at bedside and found to be alone, aaox3, uncomfortable, and in no acute distress. He reports having significant pain on his lower abdomen and flank that is associated with nausea and he states he has been "feeling sick for days". Also endorses having a migraine headache, which he has had in the past and receives periodic Aimovig. He also uses Tylenol or ibuprofen at home on occasion with some control of symptoms. Also feels dehydrated since he "hasn't eaten in 2 days" and has had poor water consumption. Nurse notified that the patient had chest pain, and when I went to see the patient, he reports the pain came and went suddenly and could not describe it. No other concerns reported. Review of Systems Review of Systems: As per HPI. Physical Exam Physical Exam: General: A&Ox3. Afebrile. Uncomfortable. No acute distress. Pulm: CTAB A&P. Symmetrical chest rise. No increased work of breathing. No respiratory distress. Cardiac: RRR, no murmurs/rubs/gallops. Abdominal: Right lower quadrant tender to palpation without radiation or guarding. Extremities: Warm/dry Results & Data Results & Data Vital Signs (Past 12 Hours) Vital Signs Temp Pulse Resp BP BP Pulse Ox O2 Del Method 02/12/23 11:47 36.3 C L 50 L 18 118/65 96 Room Air 02/12/23 07:40 36.4 C L 79 18 118/74 99 Room Air Resident Activity Tracking Resident Involvement: Resident Care Provided Care Provided: Adult Hospital Medicine
--- NOTE | 2023-02-12 13:59 | Electrocardiogram Report ---
Test Reason : Blood Pressure : / mmHG Vent. Rate : 078 BPM Atrial Rate : 078 BPM P-R Int : 150 ms QRS Dur : 090 ms QT Int : 368 ms P-R-T Axes : 076 063 060 degrees QTc Int : 419 ms Normal sinus rhythm with sinus arrhythmia Normal ECG When compared with ECG of 16-APR-2009 01:04, No significant change was found Confirmed by Tyron Gilbert ([id number]) on 02/12/2023 1:58:40 PM Referred By: REFERRED SELF Confirmed By:Tyron Gilbert
--- NOTE | 2023-02-12 15:12 | Urology Consultation ---
Date of Consultation February 12, 2023 Assessment & Plan (1) Right ureteral stone: (2) Renal colic: Plan 43-year-old male admitted with intractable flank pain. CT abdomen pelvis on arrival demonstrated a 6 x 5 mm nonobstructing proximal right ureteral stone. He is afebrile and hemodynamically stable. Labs today show no leukocytosis and normal renal function. Urinalysis with blood, positive nitrite, 1+ LE. We discussed recommendation for cystoscopy and stent placement given his intractable pain and nitrite positive urine. Ureteral stents were discussed as well as postoperative issues and pain management. We discussed that he will need a second procedure for definitive stone treatment. Risks and benefits of each were discussed. All questions were answered. Patient declined stent placement. He feels his pain is better controlled at the moment and would prefer trial of passage. Risks of this were discussed including worsening pain and/or infection. He verbalized understanding. No plan for urological intervention. Continue supportive care and pain management. Would recommending continue antibiotics until cultures finalize given nitrite positive urine. Will arrange outpatient follow-up with our service for stone management. Urology will follow peripherally.. Please contact any further questions, concerns, or change in the patient status. Plan of care reviewed with Dr. Bean, on-call urologist. Supervising Physician Co-Signing Physician Notes Discussed patient with GREG. Agree with plan. Offered patient stent but he declined. Rest of management per medicine team. History of Present Illness Attending Physician: Emma Dunne MD History of Present Illness 43-year-old male with a history of nephrolithiasis who presented to the emergency department on 02/11/[address] abdomen pelvis on arrival demonstrated a 6 x 5 mm nonobstructing stone within the proximal right ureter without hydronephrosis. He was afebrile and hemodynamically stable. Labs show no leukocytosis and normal renal function. Urinalysis with 3+ blood, positive nitrite, 1+ LE, negative bacteria. Due to his intractable pain, he was admitted to medicine service for continued care and pain management. Patient examined at bedside this AM Awake, resting in bed on arrival. No acute distress. He denies any noticeable stone passage. Reports some improvement in pain. Denies fevers or chills. Notes some nausea, no vomiting. Has been NPO. Also reports a migraine due to not eating or drinking anything. Patient is known to the urology service due to history of stones, follows with Dr. Bean. Allergies Allergy/AdvReac Type Severity Reaction Status Date / Time meperidine AdvReac Unknown ANXIETY Verified 03/20/22 07:13 metoclopramide AdvReac Unknown ANXIETY Verified 03/20/22 07:13 Home Medications Medication Instructions Recorded Confirmed Type multivitamin 1 tab PO QDL 09/05/18 02/11/23 History erenumab-aooe 140 mg/mL 140 mg subcut MONTHLY 02/14/20 02/11/23 History subcutaneous auto-injector (Aimovig Autoinjector) Stone Free 1 dose PO DAILY PRN kidney stones 02/28/22 02/11/23 History etodolac 200 mg capsule 200 mg PO BID PRN pain #20 caps 02/11/23 Rx ondansetron 4 mg disintegrating 4 mg PO Q8H PRN nausea and 02/11/23 Rx tablet vomiting #30 tabs rimegepant 75 mg disintegrating 75 mg PO DAILY 02/11/23 02/11/23 History tablet (Nurtec ODT) tamsulosin 0.4 mg capsule (Flomax) 0.4 mg PO DAILY #14 caps 02/11/23 Rx Patient History Medical History History of COVID-19 02/11/22 [place]- NO SYMPTOMS, INCIDENTAL FINDING WHEN WENT TO ER W/ KIDNEY STONE Seasonal allergies Kidney stones Chronic anemia Follows with HARSHA Wodoy. Chronic neck pain Chronic back pain Degenerative disc disease Scoliosis MILD History of Lyme disease Migraines Chronic sinusitis Surgical History History of lithotripsy [facility] 03/08/21 H/O colonoscopy History of esophagogastroduodenoscopy (EGD) History of wisdom tooth extraction Family History Father , [place] age 62 Coronary heart disease Myocardial infarction, Onset Age: 38 Hypertension Mother Skin cancer History of radiofrequency ablation procedure for cardiac arrhythmia Grandmother (Maternal) Ovarian cancer Grandmother (Paternal) , late 30s Ovarian cancer Other No family history of adverse response to anesthesia Denies family history of Prostate cancer Breast cancer Colorectal cancer Social History Smoking Status: Never smoker Tobacco Type: Smokeless Tobacco (Dip or Chew) Second Hand Exposure: No; Do You Dip or Chew Tobacco: Yes; Hx Alcohol Use: No Hx Substance Use: No Preferred Language: Eritrean Communication Ability: Effective Visual Impairment: No Limitations Hearing Ability: Normal Overhead Line Worker Required: No Beliefs That Will Affect Care: None marital status: Current Living Situation: Family Current Living Situation Comment: lives in 2 story home with family current occupational status: disabled Feels Safe at Home: Yes Childhood Exposure to Second-Hand Smoke: No Diet: regular Diet Comment: Regular caffeine: Yes during the past year weight has: remained stable Dental Care, Regularly: Yes Physical Activity Frequency: Daily Seatbelt Use: always Sunscreen Use: Yes Assistive Devices: None Review of Systems Review of Systems: All systems reviewed & are unremarkable except as noted in HPI & below Physical Exam Constitutional: no acute distress Respiratory: no respiratory distress and no labored breathing Musculoskeletal: Head/Neck/Chest: normocephalic Skin: No visible rashes or lesions to exposed skin areas Neurologic: moves all extremities and awake Psychiatric: A+Ox3, euthymic affect Results & Data Vital Signs (Past 12 Hours) Vital Signs Temp Pulse Resp BP BP Pulse Ox O2 Del Method 02/12/23 07:40 36.4 C L 79 18 118/74 99 Room Air 02/11/23 21:25 36.5 C 86 18 144/69 H 98 Room Air PG Care Time/CCT Total # of Minutes Spent Total Time Spent with Patient: Total time spent is greater than 50% in coordination of care (as documented) at patient's floor/unit and/or counseling patient: Coding Level of Care Code 61543 IN/OBS CONSULT LVL 4,60M Diagnoses Right ureteral stone N20.1 Renal colic N23
[2023-02-12] MEDS: cefTRIAXone SODIUM 1,000 MG in DEXTROSE 5 % MINI-B 50 ML IV SCH (16:21)
[2023-02-13] MEDS: PLASMA-LYTE A 1,000 ML IV SCH ×2 (01:14→09:23)
[2023-02-13] MEDS: ACETAMINOPHEN 1,000 MG/100 ML VIAL IV PRN (01:20)
[2023-02-13] MEDS: TAMSULOSIN HCL 0.4 MG CAP PO SCH ×2 (02:42→08:51)
[2023-02-13 08:06] LABS: Basophils # (auto) 0.02 K/uL (0.00-0.20); Basophils % (auto) 0.4 %; Eosinophils # (auto) 0.06 K/uL (0.00-0.50); Eosinophils % (auto) 1.3 %; Hemoglobin 10.9 g/dl (14.0-18.0); Immature Granulocytes # (auto) 0.02 K/uL (0.01-0.20); Immature Granulocytes % (auto) 0.4 %; Lymphocytes # (auto) 1.42 K/uL (1.20-3.40); Lymphocytes % (auto) 29.6 %; Mean Corpuscular Hemoglobin 31.5 pg (25.0-34.0); Mean Corpuscular Hgb Conc 35.2 g/dL (32.0-36.0); Mean Corpuscular Volume 89.6 fL (80.0-100.0); Mean Platelet Volume 9.9 fL (9.4-12.4); Monocytes # (auto) 0.34 K/uL (0.11-0.59); Monocytes % (auto) 7.1 %; Neutrophils # (auto) 2.93 K/uL (1.40-6.50); Neutrophils % (auto) 61.2 %; Platelet Count 201 K/uL (130-400); RDW Coefficient of Variation 11.2 % (11.5-14.5); RDW Standard Deviation 36.7 fL (36.4-46.3); Red Blood Count 3.46 M/uL (4.70-6.10); White Blood Count 4.79 K/ul (4.8-10.8)
[2023-02-13 08:31] LABS: BUN Creatinine Ratio 16.9 (10-20); Creatinine Clr Calc Pharmacy 122.4 ml/min; Est GFR (African American) 127.9 ml/min; Est GFR (Non-African American) 110.4 ml/min; Potassium 3.5 mmol/L (3.5-5.1)
--- NOTE | 2023-02-13 08:33 | Electrocardiogram Report ---
Test Reason : Blood Pressure : / mmHG Vent. Rate : 050 BPM Atrial Rate : 050 BPM P-R Int : 148 ms QRS Dur : 104 ms QT Int : 504 ms P-R-T Axes : 245 229 245 degrees QTc Int : 459 ms Probable limb lead reversal Sinus vs. ectopic atrial rhythm Right superior axis deviation Incomplete right bundle branch block Abnormal ECG When compared with ECG of 11-FEB-2023 12:01, Possible limb lead reversal Ectopic atrial rhythm has replaced Sinus rhythm Vent. rate has decreased BY 28 BPM Confirmed by Yemi Reveles ([id number]) on 02/13/2023 8:33:12 AM Referred By: REFERRED SELF Confirmed By:Yemi Reveles
--- NOTE | 2023-02-13 08:34 | Electrocardiogram Report ---
Test Reason : Blood Pressure : / mmHG Vent. Rate : 053 BPM Atrial Rate : 053 BPM P-R Int : 132 ms QRS Dur : 096 ms QT Int : 510 ms P-R-T Axes : 053 069 061 degrees QTc Int : 478 ms Sinus bradycardia with sinus arrhythmia Otherwise normal ECG When compared with ECG of 12-FEB-2023 11:52, Limb lead reversal corrected Confirmed by Yemi Reveles ([id number]) on 02/13/2023 8:33:43 AM Referred By: REFERRED SELF Confirmed By:Yemi Reveles
[2023-02-13] MEDS: cefTRIAXone SODIUM 1,000 MG in DEXTROSE 5 % MINI-B 50 ML IV SCH (08:51)
--- NOTE | 2023-02-13 13:25 | Discharge Summary ---
Date of Service February 13, 2023 Admission HPI Per Admitting Provider Time 43-year-old male with a history of nephrolithiasis who presents with nonobstructive6 x 5 mm nonobstructing proximal right ureteral stone. Was initially set for discharge but due to too much pain could not return home. Case was reviewed with urology he is pending urologic intervention tomorrow morning, may have expulsive therapy tonight and n.p.o. overnight. Patient denies fever, chills, sweats. Endorses right low abdomen pain and flank pain without radiation to the left abdomen. No chest pain or chest pressure. Denies other medical history. Is hopeful to pass stone without cystoscopy. Sensitive to Demerol and Reglan, otherwise denies medication allergies. Social history reviewed. Admission Exam Per Admitting Provider General: A&Ox3. NAD. Cooperative. HEENT: Atraumatic, normocephalic., vision/hearing intact Pulm: CTAB A&P. -wheezes, -rales, -rhonchi. Symmetrical chest rise. No increased work of breathing. No respiratory distress. Cardiac: RRR, -mrg. Radial pulses intact and symmetrical. Abdominal: Right lower quadrant tender to palpation without radiation or guarding. Extremities: Warm/dry Principal Diagnosis Non-obstructing right-sided ureteral stone Discharge Exam General: A&Ox3. Afebrile. Comfortable. No acute distress. Pulm: CTAB A&P. Symmetrical chest rise. No increased work of breathing. No respiratory distress. Cardiac: RRR, no murmurs/rubs/gallops. Abdominal: Non-tender, non-distended, soft Extremities: Warm/dry Discharge Data Allergies Allergy/AdvReac Type Severity Reaction Status Date / Time meperidine AdvReac Unknown ANXIETY Verified 03/20/22 07:13 metoclopramide AdvReac Unknown ANXIETY Verified 03/20/22 07:13 Consultations 02/11/23 15:47 ED Decision to Admit Stat 02/11/23 15:53 Consult Urology Stat Ordered Studies 02/11/23 12:01 CT Abd and Pelvis [CT abd pelvis IV con only] Stat Hospital Course (1) Kidney stone: (2) Chest pain: Plan Mr. Anders is a 43 y/o male who was admitted due to right ureteral stone with subsequent pain. Non-obstructive Right Ureteral stone (Acute, stable) - CT-A/P: 1. A 6 x 5 mm nonobstructing stone within the proximal right ureter. No hydronephrosis. - UAno bacteria, nitrate, blood, and leukocyte esterase positive. Dysuria in the ED, none today. Covered with Rocephin while in the hospital Culture preliminary result negative. Will discharge without antibiotics and contact patient if there is growth and recommend appropriate antibiotic. - IVFs and Flomax ordered. Urology consulted Patient not in favor of proceeding with stent placement. Manage conservatively: Flomax, IVF, pain management Chest Pain (Resolved) - EKG not showing ischemic changes and Troponins negative Patient found to be clinically and hemodynamically stable, and found fit to be discharged today with follow up with his PCP and Urologist. Patient understanding and agreed. Total Time Total Time Spent Total Time Spent (In Minutes): As per attenting attestation. Discharge Plan Discharge Items Patient Disposition: Home - Self-Care Reason For Visit: URETAL STONE Discharge Diagnosis: Non-obstructive right ureteral stone Activity: Per Instructions section Non-emergency contact: Primary Care Provider and Urologist Call non-emergency contact if: your symptoms worsen and your temperature is above 101 Follow-up/Referrals: Patricia Ornelas DO [Physician] - 02/20/23 7:00 am Umer Bean MD [Physician] - 02/25/23 9:40 am [facility] [Primary Care Provider] - Diet: Regular Addtl Attending Provider Instructions: You were admitted to the hospital due to a non-obstructing right ureteral stone. You were treated with fluid hydration through your veins, pain control, and Flomax to help pass the stone. Your urine sample showed changes that suggest a u rinary tract infection, and for this reason we sent this urine sample to be cultures to find the specific bacteria and the best antibiotic to cover it. The culture up until now has been negative for any bacteria, and for this reason we will discharge you without antibiotics. If the culture changes and does show bacterial growth, I will be contacting you to notify you and recommend and antibiotic if appropriate. A discharge summary will be sent to your primary care physician to ensure continuity of care. Please bring this discharge summary with you to your next office appointment so that your provider can review it at that time. Follow-up appointments: Make a follow-up appointment with your PCP within the next week. It is very important that you follow up with them shortly after discharge from the hospital. We have requested a follow-up appointment with your Urologist fo your post- discharge follow up. Please call their office if you do not hear from them. Keep all your follow-up appointments as already scheduled. If you cannot make an appointment, notify your provider. Medications: Your medication list has been reviewed and reconciled upon discharge to ensure accuracy and continuity of care. An updated list of all your medications is included with your hospital discharge paperwork. Please review this list closely, and make note of any changes. If you have any issues filling these prescriptions, please call [phone] and ask to leave a message for Dr. Mejia. Take your medications as instructed; do not skip a dose of your medicines. Make sure all of your doctors know every medicine you are taking (including dolc-kxn-wvpsdev medicines, vitamins, and supplements). Call your primary care provider before taking any new medicines (including over- the-counter medicines, vitamins, and supplements), because some of these may interact with your current medications, or may make your symptoms worse. Tell your primary care provider if you cannot afford your medications. CONTACT YOUR PRIMARY CARE PROVIDER if you experience any of the following: Worsening of symptoms Fever, chills, or fatigue Difficulty following your treatment plan, or difficulty taking medications CALL 911 OR GO TO THE EMERGENCY DEPARTMENT if you experience any of the following: Sudden, severe abdominal pain or nausea/vomiting Severe chest pain, or chest pain that radiates (moves) to your jaw or arm Sudden, severe shortness of breath or difficulty breathing Thank you for allowing us to participate in your care. Pending Studies at Discharge: No Stand-Alone Forms: [facility], Smoking Cessation Medications and DC Order Prescriptions: New etodolac 200 mg capsule 200 mg PO BID PRN (Reason: pain) Qty: 20 0RF tamsulosin [Flomax] 0.4 mg capsule 0.4 mg PO DAILY Qty: 14 0RF ondansetron 4 mg tablet,disintegrating 4 mg PO Q8H PRN (Reason: nausea and vomiting) Qty: 30 0RF Continued Aimovig Autoinjector 140 mg/mL auto-injector 140 mg subcut MONTHLY multivitamin Tablet 1 tab PO QDL Stone Free 1 dose PO DAILY PRN (Reason: kidney stones) Nurtec ODT 75 mg tablet,disintegrating 75 mg PO DAILY Discharge Orders: Discharge Order (Routine); Ordered 02/13/23 Ordered By: Delia Payne/Other Patient Handouts: Understanding Kidney Stones, Preventing Kidney Stones Admission Data Admit Date/Time: 02/11/23 17:22 Attending Provider: Emma Dunne Admit Provider: Kiran Diaz Primary Care Provider: [facility] Other Providers: Charanjit Cline Other Interventions: Discharge Summary Assessment (RN) Last Done: 02/13/23 15:31 Supervising Physician Co-Signing Physician Notes Resident Physician Supervision Note: I independently interviewed and examined the patient and verified the zuleta history and physical, reviewed labs and image studies and agree with resident findings and care plan. Nonobstructive right ureteral stone 6x5 mm with colic - Received IVF, pain control. Urology consulted - Patient declined stent placement. Urine culture was negative. Pain controlled on discharge. continue pain control at home with nsaid. d/sean home = follow up with urology and pcp - appointments already established. Resident Activity Tracking Resident Involvement: Resident Care Provided Care Provided: Adult Hospital Medicine
[2023-02-13] MEDS: HYDROmorphone INJ 1 MG/ML SYRINGE IV PRN (13:40)
== END 2023-02-13 15:51 | disposition home or self-care (01) ==
LOC: ED 11:50 → EDINP 11:50 → SUATTDRO 17:22 → 3N 19:21